=== PATIENT | male | born 1950 | race Caucasian/White ===

== ENCOUNTER 2020-04-18 01:01 | Inpatient (IN) | payer MEDICARE, OTHER ==
[2020-04-18 01:44] LABS: Hemoglobin 8.4 g/dL (14.0-18.0); Mean Corpuscular HGB CONC 35.2 g/dL (32.0-36.0); Mean Corpuscular Hemoglobin 38.4 pg (27.0-31.0); Platelet Count 216 thou/uL (130-400); RBC Distribution Width 16.3 % (11.5-14.5); Red Blood Cell (RBC) Count 2.19 mill/uL (4.70-6.10)
[2020-04-18 02:05] LABS: ALT (SGPT) 17 U/L (8-55); AST (SGOT) 24 U/L (5-34); Albumin 3.7 g/dL (3.4-4.8); Alkaline Phosphatase 74 U/L (40-110); Anion Gap 14 mmol/L (10-20); BUN (Urea Nitrogen) 24 mg/dL (8.4-25.7); Bilirubin, Total 1.2 mg/dL (0.2-1.2); Calc. Creatinine Clearance 0 mL/min (70-130); Carbon Dioxide 30 mmol/L (23-31); Chloride 102 mmol/L (98-107); Estimated GFR-MDRD 53; Globulin 2.6 g/dL (2.4-3.5); Glucose 113 mg/dL (83-110); Potassium 3.1 mmol/L (3.5-5.1); Protein, Total 6.3 g/dL (5.8-8.1); Sodium 143 mmol/L (136-145)
[2020-04-18 02:06] LABS: Elliptocytes MODERATE= 6-15 cells (100X) (0-1/hpf); Eosinophils 7 % (0-10); Lymphocytes 43 % (21-51); MDiff Complete? YES; Macrocytosis SLIGHT = 6-15 cells (100X) (0-5/hpf); Monocytes 12 % (0-10); Neutrophil 37 % (42-75)
[2020-04-18 02:07] LABS: Calcium 12.5 mg/dL (7.8-10.44)
[2020-04-18] MEDS ORDERED: Vancomycin 1 GM/200 ML BAG ONE (02:09)
[2020-04-18] MEDS ORDERED: Cefepime 2 GM VIAL ONE (02:09)
[2020-04-18] MEDS ORDERED: Potassium Chloride 20 MEQ TAB ONE (04:04)
[2020-04-18] MEDS ORDERED: Ondansetron ODT 4 MG TAB PO PRN (04:20)
[2020-04-18] MEDS ORDERED: Ondansetron PF 4 MG/2 ML Vial IVP PRN (04:20)
[2020-04-18] MEDS ORDERED: Acetaminophen 325 MG TAB PO PRN (04:20)
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
[2020-04-18] MEDS ORDERED: Potassium Chloride 20 MEQ TAB PO SCH (04:30)
[2020-04-18 05:39] VITALS: BMI 34.7
[2020-04-18] MEDS ORDERED: Furosemide 40 MG/4 ML VIAL SLOW IVP SCH ×2 (05:45→14:00)
[2020-04-18 07:44] LABS: Anisocytosis SLIGHT = 6-15 cells (100X) (0-5/hpf); Elliptocytes MODERATE= 6-15 cells (100X) (0-1/hpf); Eosinophils 5 % (0-10); Hemoglobin 8.7 g/dL (14.0-18.0); Lymphocytes 39 % (21-51); MDiff Complete? YES; Macrocytosis SLIGHT = 6-15 cells (100X) (0-5/hpf); Mean Corpuscular HGB CONC 34.2 g/dL (32.0-36.0); Mean Corpuscular Hemoglobin 37.7 pg (27.0-31.0); Monocytes 17 % (0-10); Neutrophil 38 % (42-75); Ovalocytes SLIGHT = 2-5 cells (100X) (0-1/hpf); Platelet Count 250 thou/uL (130-400); Platelet Morphology Comment Appears Adequate; Poikilocytosis SLIGHT = 6-15 cells (100X) (0-5/hpf); Polychromasia SLIGHT = 2-3 cells (100X) (0-2/hpf); RBC Distribution Width 16.5 % (11.5-14.5); Red Blood Cell (RBC) Count 2.31 mill/uL (4.70-6.10); Spherocytes SLIGHT = 1-5 cells (100X) (None Seen); White Blood Cell (WBC) Count 5.9 thou/uL (4.8-10.8)
--- NOTE | 2020-04-18 07:57 | RAD ---
EXAM: CHEST ONE VIEW HISTORY: Bilateral lower stomach pain and drainage. Shortness of breath. COMPARISON: 04/12/2016 FINDINGS: Cardiac silhouette remains enlarged. Prominence of the hilar structures, but this is likely related t o technique of the exam and patient rotation. Pulmonary vasculature is otherwise within normal limits. There are mild linear densities left lung base probably due to atelectasis. Calcified granulo ma right midlung zone is present. Degenerative change seen in the spine. No other interval change. IMPRESSION: Cardiomegaly without overt CHF.
[2020-04-18] MEDS ORDERED: FLU VACC QS2020-21(65YR UP)/PF 240 MCG/0.7 ML SYRINGE IM ONE (09:00)
[2020-04-18 10:39] LABS: SARS-CoV-2 MS2 Positive; SARS-CoV-2 N Gene Negative; SARS-CoV-2 S Gene Negative; SARS-CoV-2 by NAA Not Detected (NotDetected); SARS-CoV-2 orf1ab Negative
[2020-04-18] MEDS ORDERED: Nitroglycerin 0.4 MG TAB (25 Tab Bottle) SL PRN (12:59)
[2020-04-18] MEDS ORDERED: Polyethylene Glycol 3350 17 GM Packet PO PRN (12:59)
[2020-04-18] MEDS ORDERED: Carvedilol 3.125 MG TAB PO SCH (13:15)
[2020-04-18] MEDS ORDERED: Furosemide 20 MG/2 ML VIAL SLOW IVP SCH (14:00)
[2020-04-18 14:14] LABS: Bilirubin Negative (Negative); Blood, Urine 1+ (Negative); Clarity Turbid (Clear); Glucose, Urine (Dipstick) Normal (Negative); Ketone, Urine Negative (Negative); Leukocyte Negative Leu/uL (Negative); Nitrite Negative (Negative); Protein, Urine (Dipstick) 50 mg/dL (Neg-Trace); RBC/HPF 0-3 HPF (0-3); Specific Gravity, Urine 1.014 (1.002-1.036); Squamous Epithelial None Seen HPF (0-3); Urobilinogen Normal mg/dL (Less than 2); WBC/HPF 0-3 HPF (0-3)
[2020-04-18] MEDS: Vancomycin HCl 1.25 GM in Sodium Chloride 0.9% 250 ML 250 ML IVPB SCH (14:20)
[2020-04-18 14:24] LABS: Bacteria/HPF 1+ HPF (None Seen)
[2020-04-18 14:39] LABS: Reference Lab Name LABCORP
[2020-04-18] MEDS ORDERED: Rivaroxaban 10 MG TAB PO SCH (17:00)
[2020-04-18] MEDS: Carvedilol 3.125 MG TAB PO SCH (20:07)
[2020-04-18] MEDS: Potassium Chloride 10 MEQ TAB PO SCH (20:07)
[2020-04-19] MEDS: Vancomycin HCl 1.25 GM in Sodium Chloride 0.9% 250 ML 250 ML IVPB SCH ×2 (01:52→16:18)
[2020-04-19 06:54] LABS: Anion Gap 14 mmol/L (10-20); BUN (Urea Nitrogen) 17 mg/dL (8.4-25.7); Calc. Creatinine Clearance 100 mL/min (70-130); Carbon Dioxide 27 mmol/L (23-31); Chloride 106 mmol/L (98-107); Estimated GFR-MDRD 68; Glucose 104 mg/dL (83-110); Sodium 144 mmol/L (136-145)
[2020-04-19 07:04] LABS: Potassium 2.7 mmol/L (3.5-5.1)
--- NOTE | 2020-04-19 07:24 | PDOC.FM ---
- Subjective Subjective: Pt is doing well today. He is weeping from his extremities. He got rest through the night with Lasix 20 mg IV instead of 40 mg. He has no complaints. Denies fever, chills. - Objective Vital Signs & Weight: Vital Signs (12 hours) Temp Pulse Resp BP Pulse Ox 04/19/20 04:00 98.0 F 97 20 121/58 L 94 L 04/18/20 23:40 98.6 F 73 20 105/51 L 94 L 04/18/20 19:45 97.8 F 67 18 107/53 L 96 Weight Weight 113.035 kg I&O: 04/18/20 04/19/20 04/20/20 06:59 06:59 06:59 Intake Total 1350 Balance 1350 Result Diagrams: 04/19/20 06:19 04/19/20 06:19 Phys Exam - Physical Examination Constitutional: NAD HEENT: PERRLA, moist MMs Respiratory: no wheezing, clear to auscultation bilateral Cardiovascular: RRR, no significant murmur Gastrointestinal: soft, non-tender, positive bowel sounds 2+ pitting edema, weeping Neurological: non-focal, normal sensation Psychiatric: normal affect, A&O x 3 Dx/Plan - Plan Plan: CHF exacerbation Last echo on record EF 30-40%. Reports regular f/u with Dr. Chapman (refrigeration houseman). BNP 540. CXR showed cardiomegaly without overt CHF. Lower extremity -Admit to medical inpatient, consider tele pending clinical course -Med rec with pharmacy in the am. Patient unable to report home medications. -Lasix IV 40mg then 20 mg, monitor creatinine -Strict I&Os Concern for LLE superimposed cellulitis Chronic venous stasis disease -Continue vanc Macrocytic anemia Hgb 8.4, MCV 109 in ED -Order Folate and B12 - work up for MM Hypercalcemia 12.7 when corrected for albumin. Cause most likely PTH vs. undiagnosed malignancy. Patient currently asymptomatic aside from edema. -PTH low -MM work up pending Hypokalemia replete HTN HLD A-fib BPH -continue home meds PCP: Drake Code: DNR DVT PPX: Lovenox Dispo: admit to medical inpatient, expected LOS > 48 hours Addendum - Attending - Attending Attestation Date/Time: 04/19/20 0428 I personally evaluated the patient and discussed the management with Dr. Griffith. I agree with the History, Examination, Assessment and Plan documented above with any addition or exceptions noted below.
[2020-04-19] MEDS ORDERED: Potassium Chloride 20 MEQ TAB PO SCH ×4 (07:30→21:00)
[2020-04-19 07:49] LABS: Anisocytosis SLIGHT = 6-15 cells (100X) (0-5/hpf); Band 2 % (5-11); Elliptocytes SLIGHT = 2-5 cells (100X) (0-1/hpf); Eosinophils 4 % (0-10); Hemoglobin 7.9 g/dL (14.0-18.0); Lymphocytes 27 % (21-51); MDiff Complete? YES; Macrocytosis MODERATE=16-30 cells (100X) (0-5/hpf); Mean Corpuscular HGB CONC 33.7 g/dL (32.0-36.0); Mean Corpuscular Hemoglobin 37.3 pg (27.0-31.0); Monocytes 10 % (0-10); Neutrophil 56 % (42-75); Ovalocytes SLIGHT = 2-5 cells (100X) (0-1/hpf); Platelet Count 216 thou/uL (130-400); Platelet Morphology Comment Appears Adequate; Polychromasia SLIGHT = 2-3 cells (100X) (0-2/hpf); RBC Distribution Width 16.7 % (11.5-14.5); Red Blood Cell (RBC) Count 2.11 mill/uL (4.70-6.10); White Blood Cell (WBC) Count 4.7 thou/uL (4.8-10.8)
[2020-04-19] MEDS: Potassium Chloride 10 MEQ TAB PO SCH ×2 (08:11→21:08)
[2020-04-19] MEDS: Aspirin Chewable 81 MG TAB PO SCH (08:11)
[2020-04-19] MEDS: Finasteride 5 MG TAB PO SCH (08:12)
[2020-04-19] MEDS: Tamsulosin HCl 0.4 MG CAP PO SCH (08:12)
[2020-04-19] MEDS: Famotidine 20 MG TAB PO SCH (08:12)
[2020-04-19] MEDS: Carvedilol 3.125 MG TAB PO SCH ×2 (08:12→21:07)
[2020-04-19] MEDS: Fenofibrate Nanocrystallized 145 MG TAB PO SCH (08:12)
[2020-04-19] MEDS: Multivitamin W/ Minerals 1 TAB PO SCH (08:12)
[2020-04-19] MEDS: Furosemide 40 MG/4 ML VIAL SLOW IVP SCH (08:12)
[2020-04-19] MEDS ORDERED: Rivaroxaban 10 MG TAB PO SCH (09:00)
--- NOTE | 2020-04-19 10:31 | PDOC.FMACP ---
Advance Care Planning - Problem (1) Hypokalemia Status: Acute Code(s): E87.6 - HYPOKALEMIA (2) Palliative care by specialist Status: Acute Code(s): Z51.5 - ENCOUNTER FOR PALLIATIVE CARE (3) CHF (congestive heart failure) Status: Chronic Code(s): I50.9 - HEART FAILURE, UNSPECIFIED Qualifiers: Qualified Code(s): I50.23 - Acute on chronic systolic (congestive) heart failure (4) Cellulitis of both lower extremities Status: Resolved Code(s): L03.115 - CELLULITIS OF RIGHT LOWER LIMB; L03.116 - CELLULITIS OF LEFT LOWER LIMB - Note Participants: patient, palliative care Summary: Palliative care addressed Advanced Care Planning. The diagnosis, prognosis and goals of care were discussed. Appropriate forms and documentation to accomplish the goals of care were discussed. All questions were answered. Confirmed DNAR status, elected to complete OOHDNAR document placed on chart for Physician signature. Also completed Directive to Physician and MPOA. Origional and copies given to the patient, copies placed on the chart for medical records. Patient again confirmed decision. Please also refer to Palliative Care notes in note section. Palliative Care will sign off as Directives have been addressed, if our team can assist in the future please do not hesitate to re consult. Time Spent (mins): 15
[2020-04-19 13:46] LABS: Vancomycin, Trough 15.7 ug/mL
[2020-04-19 14:09] LABS: Anion Gap 14 mmol/L (10-20); BUN (Urea Nitrogen) 18 mg/dL (8.4-25.7); Calc. Creatinine Clearance 77 mL/min (70-130); Carbon Dioxide 28 mmol/L (23-31); Chloride 102 mmol/L (98-107); Estimated GFR-MDRD 51; Glucose 123 mg/dL (83-110); Potassium 3.1 mmol/L (3.5-5.1); Sodium 141 mmol/L (136-145)
[2020-04-19 14:13] LABS: Calcium 12.2 mg/dL (7.8-10.44)
--- NOTE | 2020-04-19 15:29 | PQF ---
CLINICAL DOCUMENTATION CLARIFICATION FORM: Dear Date:04/19/20 9891 Please exercise your independent, professional judgment in responding to the clarification form. Clinical indicators are provided on the bottom of this form for your review. Please check appropriate box(es): CONGESTIVE HEART FAILURE EXACERBATION: A. ACUITY [ ] Acute [ x ] Acute on Chronic [ ] Chronic B. TYPE: [ x ] Systolic / HFrEF [ ] Diastolic / HFpEF [ ] Combined Systolic / Diastolic [ ] Hypertensive Heart and Kidney disease [ ] Hypertensive Heart Disease [ ] Hypertensive Kidney Disease [ ] Other diagnosis [ ] Unable to determine In addition, please specify: Present on Admission (POA): [ x ] Yes [ ] No [ ] Unable to determine For continuity of documentation, please document condition throughout progress notes and discharge summary. Thank You. To be completed by CDI/Coding staff for physician review: CLINICAL INDICATORS - SIGNS / SYMPTOMS / LABS / RESULTS AND LOCATION IN EMR 04/18 BNP 540.7 CXR cardiomegaly without overt CHF Pt is a 70 year old male with a hx of CHF, presents to the ED with reports of bilateral lower extremity edema for the past 4 days ( H&P/ Gatica) 04/18 He got rest through the night with Lasix 20mg iv instead of 40mg. Plan: CHF Exacerbation- last echo on record showed EF 30-40%. (PN/Gladis) 04/19 RISKS FACTORS / RESULTS AND LOCATION IN EMR Hx of Hypertension, CHF ( H&P/ Gatica) 04/18 TREATMENTS / RESULTS AND LOCATION IN EMR LASIX IV 20MG (Gladis/PN) 04/19 CXR (04/18) Thank you! CDS Signature: Jenny Torres RN Phone #: [phone] Date: 04/19/2020 This is a permanent part of the Medical Record [facility]
[2020-04-19] MEDS: Rivaroxaban 10 MG TAB PO SCH (16:30)
[2020-04-19] MEDS: Atorvastatin Calcium 40 MG TAB PO SCH (21:07)
[2020-04-19 21:13] LABS: Albumin-Ur 11.5 % (.); Alpha 1 - Ur 3.6 % (.); Alpha 2 - Ur 4.5 % (.); Beta-Ur 8.5 % (.); Gamma-Ur 71.9 % (.); M-Spike,% 67.8 % (Not Observed); Protein, Urine 117.8 mg/dL (Not Estab.)
[2020-04-19 21:13] LABS: A/G Ratio 1.2 (0.7-1.7); Albumin 3.4 g/dL (2.9-4.4); Alpha 1 0.5 g/dL (0.0-0.4); Alpha 2 0.8 g/dL (0.4-1.0); Gamma 0.6 g/dL (0.4-1.8); Globulin, Total 2.9 g/dL (2.2-3.9); M-Spike 0.1 g/dL (Not Observed)
[2020-04-20] MEDS: Vancomycin HCl 1.25 GM in Sodium Chloride 0.9% 250 ML 250 ML IVPB SCH (01:19)
--- NOTE | 2020-04-20 06:17 | PDOC.FM ---
- Subjective Subjective: Pt is doing well today. He is wondering about discharge as he wants to be with family. He has no complaints. He believes his legs are decreasing in size. He is urinating frequently. - Objective Vital Signs & Weight: Vital Signs (12 hours) Temp Pulse Resp BP Pulse Ox 04/19/20 19:35 97.8 F 76 18 118/56 L 97 Weight Admit Weight 113.035 kg Weight 113.035 kg I&O: 04/18/20 04/19/20 04/20/20 06:59 06:59 06:59 Intake Total 1350 1695 Balance 1350 1695 Result Diagrams: 04/20/20 05:52 04/20/20 05:52 Phys Exam - Physical Examination Constitutional: NAD HEENT: PERRLA, moist MMs Respiratory: no wheezing, clear to auscultation bilateral Cardiovascular: RRR, no significant murmur Gastrointestinal: soft, positive bowel sounds Musculoskeletal: pulses present 1+ pitting edema Psychiatric: normal affect, A&O x 3 Deviation from normal: erythema in LE improving Dx/Plan - Plan Plan: HFrEF Last echo on record EF 30-40%. Reports regular f/u with Dr. Chapman (welder assistant). BNP 540. CXR showed cardiomegaly without overt CHF. Lower extremity -Lasix IV 40mg today -Strict I&Os; LE edema improving Concern for LLE superimposed cellulitis Chronic venous stasis disease -Continue vanc - switch to PO doxycycline today for a total of 5 day course Macrocytic anemia Hgb 8.4, MCV 109 in ED, B12/Folate WNL - work up for MM - pending Light Chains but electrophoresis is indicating MM Hypercalcemia 12.7 when corrected for albumin. Cause most likely PTH vs. undiagnosed malignancy. Patient currently asymptomatic aside from edema. -PTH low -MM work up pending Hypokalemia replete HTN HLD A-fib BPH -continue home meds PCP: Drake Code: DNR DVT PPX: Lovenox Dispo: admit to medical inpatient, expected LOS > 48 hours Addendum - Attending - Attending Attestation Date/Time: 04/20/20 1240 I personally evaluated the patient and discussed the management with Dr. Griffith. I agree with the History, Examination, Assessment and Plan documented above with any addition or exceptions noted below. Patient feeling well. His SPEP/UPEP has come back concerning for MM. Consulting Onc, awaiting their recommendations. Continue treatment for LE edema and cellulitis.
[2020-04-20 06:41] LABS: Band 2 % (5-11); Eosinophils 7 % (0-10); Hemoglobin 7.6 g/dL (14.0-18.0); Hypochromia SLIGHT = 6-15 cells (100X) (0-5/hpf); Lymphocytes 41 % (21-51); MDiff Complete? YES; Macrocytosis SLIGHT = 6-15 cells (100X) (0-5/hpf); Mean Corpuscular HGB CONC 34.5 g/dL (32.0-36.0); Mean Corpuscular Hemoglobin 37.6 pg (27.0-31.0); Mean Platelet Volume 8.3 fL (7.4-10.4); Monocytes 7 % (0-10); Neutrophil 43 % (42-75); Platelet Count 192 thou/uL (130-400); Platelet Morphology Comment Appears Adequate; RBC Distribution Width 16.8 % (11.5-14.5); Red Blood Cell (RBC) Count 2.03 mill/uL (4.70-6.10); White Blood Cell (WBC) Count 4.2 thou/uL (4.8-10.8)
[2020-04-20 06:44] LABS: Anion Gap 13 mmol/L (10-20); BUN (Urea Nitrogen) 17 mg/dL (8.4-25.7); Calc. Creatinine Clearance 102 mL/min (70-130); Calcium 11.9 mg/dL (7.8-10.44); Carbon Dioxide 27 mmol/L (23-31); Chloride 105 mmol/L (98-107); Estimated GFR-MDRD 69; Glucose 111 mg/dL (83-110); Potassium 3.6 mmol/L (3.5-5.1); Sodium 141 mmol/L (136-145)
[2020-04-20] MEDS: Aspirin Chewable 81 MG TAB PO SCH (08:07)
[2020-04-20] MEDS: Famotidine 20 MG TAB PO SCH (08:07)
[2020-04-20] MEDS: Potassium Chloride 10 MEQ TAB PO SCH ×2 (08:07→20:22)
[2020-04-20] MEDS: Fenofibrate Nanocrystallized 145 MG TAB PO SCH (08:07)
[2020-04-20] MEDS: Multivitamin W/ Minerals 1 TAB PO SCH (08:07)
[2020-04-20] MEDS: Finasteride 5 MG TAB PO SCH (08:07)
[2020-04-20] MEDS ORDERED: Zoledronic Acid 4 MG in Sodium Chloride 0.9% 100 ML IVPB SCH (08:45)
[2020-04-20] MEDS: Tamsulosin HCl 0.4 MG CAP PO SCH (09:31)
[2020-04-20] MEDS: Furosemide 40 MG/4 ML VIAL SLOW IVP SCH (09:31)
[2020-04-20] MEDS: Carvedilol 3.125 MG TAB PO SCH ×2 (09:31→20:22)
[2020-04-20] MEDS ORDERED: Doxycycline 100 MG CAP PO SCH ×2 (10:05→10:15)
--- NOTE | 2020-04-20 11:38 | PDOC.BPN ---
- Brief Progress Note Encounter Date: 04/20/20 Encounter Time: 11:15 Discussed M spike with Dr. Rdz today. He would like further work up for possible dx outside of multile myeloma as the serum M-spike was mildly elevated. Discussed ordering a bone marrow bx, soft tissue throat U/S (parathyroid), retic count, and iron studies. Of note, pt has not ever had colon cancer screening. I discussed this with patient and understands work up. He is willing to stay but wants to leave by Thursday. He does have family but does not want physicians to notify at this time. He seemed to be tearful at the end of conversation. Will discuss bone marrow bx and anticoagulation with radiology.
[2020-04-20 11:57] LABS: Reticulocyte Count 2.7 % (0.5-1.5)
[2020-04-20 12:11] LABS: CRP (Inflammatory) 2.84 mg/dL (= or < 0.5)
[2020-04-20] MEDS ORDERED: Furosemide 40 MG TAB PO SCH (12:30)
--- NOTE | 2020-04-20 14:10 | ULT ---
US Thyroid STANDARD History: Hypercalcemia Comparison: None. Findings: Real-time grayscale and color evaluation of the thyroid was performed. Thyroid is small. Isthmus measures 5 mm in AP dimension. Right lobe measures 3.7 x 1.6 x 1.5 cm and t he left lobe measures 2.3 x 0.6 x 1 cm. Inferior pole right lobe of thyroid is a solid wider than tall hypoechoic nodule measuring up to 6 mm without echogenic foci. This nodule TiRads 4: Moderately suspicious. Given its small size, no aspiration or follow-up is required. No other thyroid nodules appreciated. Impression: Single right lobe of the thyroid nodule does not meet criteria for aspiration or follow-u p.
[2020-04-20] MEDS ORDERED: Iopamidol-370 76% 500 ML 1 ML ONE (15:10)
--- NOTE | 2020-04-20 15:13 | CON ---
DATE OF CONSULTATION: REASON FOR CONSULTATION: Macrocytic anemia. HISTORY OF PRESENT ILLNESS: Mr. Ramon is a pleasant 70-year-old gentleman with past medical history of congestive heart failure, who presented to the emergency room with a 4-day history of lower extremity edema. He had redness and weeping. He has had this in the past and is managed usually by Dr. Chapman. He was admitted for cellulitis, started on antibiotics and Lasix. His labs in the emergency room showed a calcium of 12.5 and hemoglobin of 8.4. He had a peripheral smear, reviewed by the radiologist, which showed normal WBC and platelets. There were no dysplastic cells noted. He was treated with a dose of Zometa, with mild improvement in his calcium. His PTH was low at 9.9. He underwent a serum protein electrophoresis with an M spike of 0.1. His immunoglobulins were normal. The patient denies any bleeding, although he is on Xarelto. He has never had a colonoscopy and refuses one at this time. His B12 and folic acid were normal as well as his liver function and TSH. PAST MEDICAL HISTORY: 1. Congestive heart failure. 2. Hypertension. 3. Hyperlipidemia. 4. History of bilateral lower extremity cellulitis. 5. Chronic AFib. 6. Diabetes mellitus, 2. 7. Morbid obesity. PAST SURGICAL HISTORY: Cardioversion. ALLERGIES: NO KNOWN DRUG ALLERGIES. HOME MEDICATIONS: 1. Aspirin. 2. Atorvastatin. 3. Carvedilol. 4. Famotidine. 5. Fenofibric acid. 6. Finasteride. 7. Furosemide. 8. MiraLAX. 9. Multivitamins. 10. Potassium chloride. 11. Flomax. 12. Xarelto. FAMILY HISTORY: Noncontributory. SOCIAL HISTORY: Former smoker, quit in 1979. No alcohol or illicit drug use. REVIEW OF SYSTEMS: CONSTITUTIONAL: No fever, chills, or night sweats. EYES: No blurred or double vision. ENT: No pain, hoarseness, sore throat, or dysphagia. CV: No chest pain, palpitations, or syncope. RESPIRATORY: Positive for shortness of breath, dyspnea on exertion, and cough. No hemoptysis. GI: No nausea, vomiting, diarrhea, constipation, or abdominal pain. : No dysuria or hematuria. MUSCULOSKELETAL: No joint or back pain. SKIN: Positive for rash on his lower extremities. NEUROLOGIC: No numbness, tingling, or weakness. PHYSICAL EXAMINATION: VITAL SIGNS: Temperature is 98.1, pulse is 72, respiratory rate 18, BP is 106/54, and he is 98% on room air. GENERAL: This is an obese male, in no acute distress. HEENT: Normocephalic and atraumatic. Pupils are equal and reactive to light. NECK: Supple. CV: Regular rate and rhythm. LUNGS: Clear. ABDOMEN: Obese and nontender. Bowel sounds are positive. EXTREMITIES: He has 3+ bilateral lower extremities with Tobias wraps. NEUROLOGIC: Nonfocal. HEMATOLOGIC: He has scattered bruising on his upper extremities. PERTINENT LABORATORY DATA AND X-RAYS: Current WBCs 4.2, hemoglobin 7.6, hematocrit 22.1, MCV is 109, and platelet count 192,000. He has 43% neutrophils and 41% lymphocytes. PT is 20.9, INR is 1.8, and PTT is 48.2. Sodium 141, potassium 3.6, chloride 105, CO2 is 24, BUN is 17, creatinine 1.05, and calcium 11.9. Iron 140, TIBC is 441, ferritin 248, LDH is 341, B12 is 803, and folate is 17.9. PTH is 9.9. Serum protein electrophoresis shows an M spike of 0.1. Serum total protein is 6.3, albumin 3.7, and globulin 2.6. Bilirubin is 1.2, AST is 24, ALT is 17, and alkaline phosphatase is 74. COVID PCR negative. Chest x-ray shows cardiomegaly. ASSESSMENT: 1. Macrocytic anemia. 2. Hypercalcemia. DISCUSSION: The case has been discussed with Dr. Rdz, who has also discussed the case with Dr. Griffith. The patient has received Zometa for his high calcium. His B12, folic acid, and iron levels are normal. He has had macrocytosis for many years, but has not been anemic until recently. His white blood cells and platelets are normal. He needs a bone marrow biopsy, which has been scheduled for Thursday. I would also like to get a nuclear med bone scan, unfortunately, that cannot be done until Thursday either. There is concern for malignancy. Consider a CT of the chest, abdomen, and pelvis since all workup has been postponed until Thursday. Patient's M spike is 0.1, immunoglobulins are normal. Will check light chain assays. We will follow along with his hospital course. Thank you for the consult. Job ID: [id number] NANDA
[2020-04-20] MEDS: Rivaroxaban 10 MG TAB PO SCH (17:44)
--- NOTE | 2020-04-20 19:13 | CT ---
CT OF THE CHEST, ABDOMEN AND PELVIS WITH IV CONTRAST INDICATION: History of hypercalcemia and suspicion for malignancy COMPARISON: Thyroid ultrasound dated April 20, 2020 and a CTA of the chest dated April 10, 2016. FINDINGS: CHEST: Lungs: There is a calcified granuloma in the right lower lobe. No suspicious pulmonary nodule is demo nstrated. Pleural space: There is a small right pleural effusion Mediastinum: There is moderate cardiomegaly. There are coronary artery and thoracic aortic calcificat ions. There is a partially calcified mass, originating along the inferior pole of the left thyroid gland that extends into the substernal region suspicious for substernal goiter. However, in light of patient's history of hypercalcemia, enlarged parathyroid adenoma is not excluded. This is relatively stable in size to the 2016 CT examination and measures 4.0 x 3.6 cm. Axilla: No pathologically enlarged lymph nodes. ABDOMEN: Liver: No focal lesion. Gallbladder: Contracted Pancreas: Normal. Adrenal glands: Normal. Spleen: Calcified granuloma within the spleen Kidneys and ureters: Normal. No hydronephrosis. Vasculature: There are moderate vascular calcifications seen involving the visualized vasculature. Lymph nodes:No lymphadenopathy. Free fluid in abdomen:No free fluid is evident. PELVIS: Small and large bowel: There are scattered colonic diverticula without evidence of active diverticuli tis. Small bowel is of normal caliber. Appendix:Normal Bladder: Normal. Rectal and perirectal soft tissues:Normal. Reproductive structures: The prostate is enlarged measuring 5 cm. Free fluid in pelvis: Mild free fluid is seen within the pelvis. Lymphadenopathy pelvis: No lymphadenopathy is evident. Osseous structures: No acute osseous abnormality. No destructive osteolytic or osteoblastic lesion i s identified. There is scattered degenerative and osteoarthritic changes. Soft tissues:There is reticulation of the subcutaneous fat involving the anterior abdomen and may ref lect mild anasarca or mild panniculitis. Recommend correlation with the clinical examination. There is bilateral male gynecomastia. IMPRESSION: 1. Partially calcified, stable soft tissue mass protruding from the inferior margin of the left thyro id gland, not well seen on the recently performed thyroid ultrasound, likely related to its substernal position. 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 Recommend consideration with correlation of the patient's laboratory evaluation as well as consideration for pa rathyroid scan. 2. No overt evidence to suggest presence of malignancy within the chest, abdomen or pelvis. 3. Nonspecific prostate enlargement. 4. Moderate cardiomegaly with small right pleural effusion and minimal ascites in the pelvis. Recomme nd correlation for mild CHF. 5. Panniculitis versus mild anasarca of the anterior abdominal wall.
[2020-04-20] MEDS: Doxycycline 100 MG CAP PO SCH (20:22)
[2020-04-20] MEDS: Atorvastatin Calcium 40 MG TAB PO SCH (20:22)
--- NOTE | 2020-04-21 06:08 | PDOC.FM ---
- Subjective Subjective: Pt awake and alert, sitting on edge of bed. States his SOB, edema and LE pain have improved. Tolerating diet, voiding well. - Objective Vital Signs & Weight: Vital Signs (12 hours) Temp Pulse Resp BP Pulse Ox 04/20/20 20:20 98.3 F 99 18 116/72 97 Weight Admit Weight 113.035 kg Weight 113.035 kg I&O: 04/19/20 04/20/20 04/21/20 06:59 06:59 06:59 Intake Total 1350 1695 840 Output Total 1300 Balance 1350 1695 -460 Result Diagrams: 04/20/20 05:52 04/20/20 05:52 Phys Exam - Physical Examination Constitutional: NAD HEENT: moist MMs, sclera anicteric Neck: supple, full ROM Respiratory: no wheezing, clear to auscultation bilateral Cardiovascular: RRR 2/6 systolic murmur heard at L upper sternal border Gastrointestinal: soft, non-tender, no distention Musculoskeletal: pulses present, edema present Neurological: non-focal, moves all 4 limbs Psychiatric: normal affect, A&O x 3 Skin: no rash, cap refill <2 seconds Deviation from normal: b/l LE wrapped Dx/Plan - Plan Plan: Hypercalcemia -Ca 12.2, PTH low. etiology most likely undiagnosed malignancy. -US thyroid: small nodule inf pole of R lobe, does not meet criteria for aspiration or f/u -CT abd/pelv: stable soft tissue mass inferior margin of L thyroid gland, cannot exclude parathyroid adenoma. No evidence of malignancy in chest, abd, pelvis -Nuclear med bone scan and bone marrow bx scheduled for Thursday -pending PTHrp HFrEF -Last echo on record EF 30-40%. Reports regular f/u with Dr. Chapman (procedure rn). BNP 540. CXR showed cardiomegaly without overt CHF. -Lasix 40mg po -Strict I&Os- -460mL in past 24 hrs Concern for LLE superimposed cellulitis Chronic venous stasis disease -Abx: PO doxycycline started 04/20 for a total of 5 day course Macrocytic anemia -Hgb 8.4, MCV 109 in ED, B12/Folate WNL -pending oncology workup Hypokalemia -resolved HTN HLD A-fib BPH -continue home meds PCP: Drake Code: DNR DVT PPX: Xarelto Diet: HH Dispo: admit to medical inpatient, expected LOS > 48 hours Addendum - Attending - Attending Attestation Date/Time: 04/21/20 [id number] I personally evaluated the patient and discussed the management with Dr. Meyers. I agree with the History, Examination, Assessment and Plan documented above with any addition or exceptions noted below. Patient overall stable. Continue PO abx for his LLE cellulitis, as well as PO Lasix for edema. Continue hypercalcemia workup, Onc on board. CT did not show any evidence of malignancy but did show possible parathyroid adenoma that is stable in size. Bone marrow bx on Thursday.
[2020-04-21] MEDS: Doxycycline 100 MG CAP PO SCH ×2 (08:14→19:27)
[2020-04-21] MEDS: Carvedilol 3.125 MG TAB PO SCH ×2 (08:15→19:27)
[2020-04-21] MEDS: Potassium Chloride 10 MEQ TAB PO SCH ×3 (08:15→19:27)
[2020-04-21] MEDS: Multivitamin W/ Minerals 1 TAB PO SCH (08:15)
[2020-04-21] MEDS: Fenofibrate Nanocrystallized 145 MG TAB PO SCH (08:15)
[2020-04-21] MEDS: Tamsulosin HCl 0.4 MG CAP PO SCH (08:15)
[2020-04-21] MEDS: Finasteride 5 MG TAB PO SCH (08:15)
[2020-04-21] MEDS: Aspirin Chewable 81 MG TAB PO SCH (08:15)
[2020-04-21] MEDS: Furosemide 40 MG TAB PO SCH (08:15)
[2020-04-21] MEDS: Famotidine 20 MG TAB PO SCH (08:15)
[2020-04-21 08:18] LABS: Hemoglobin 7.8 g/dL (14.0-18.0); Mean Corpuscular HGB CONC 34.3 g/dL (32.0-36.0); Mean Corpuscular Hemoglobin 37.7 pg (27.0-31.0); Mean Platelet Volume 7.7 fL (7.4-10.4); Platelet Count 218 thou/uL (130-400); RBC Distribution Width 16.8 % (11.5-14.5); Red Blood Cell (RBC) Count 2.06 mill/uL (4.70-6.10); White Blood Cell (WBC) Count 4.7 thou/uL (4.8-10.8)
[2020-04-21 08:37] LABS: Anion Gap 13 mmol/L (10-20); BUN (Urea Nitrogen) 21 mg/dL (8.4-25.7); Calc. Creatinine Clearance 99 mL/min (70-130); Calcium 11.3 mg/dL (7.8-10.44); Carbon Dioxide 25 mmol/L (23-31); Chloride 99 mmol/L (98-107); Estimated GFR-MDRD 67; Glucose 105 mg/dL (83-110); Potassium 3.2 mmol/L (3.5-5.1); Sodium 134 mmol/L (136-145)
[2020-04-21 08:38] LABS: Anisocytosis SLIGHT = 6-15 cells (100X) (0-5/hpf); Elliptocytes SLIGHT = 2-5 cells (100X) (0-1/hpf); Eosinophils 4 % (0-10); Lymphocytes 33 % (21-51); MDiff Complete? YES; Monocytes 8 % (0-10); Neutrophil 51 % (42-75); Ovalocytes SLIGHT = 2-5 cells (100X) (0-1/hpf); Platelet Morphology Comment Appears Adequate; Polychromasia SLIGHT = 2-3 cells (100X) (0-2/hpf); Reactive Lymphocytes 2 % (0-10)
[2020-04-21] MEDS ORDERED: Potassium Chloride 40 MEQ in Sodium Chloride 0.9% 250 ML 250 ML IVPB SCH (09:30)
[2020-04-21] MEDS: Rivaroxaban 10 MG TAB PO SCH (18:08)
[2020-04-21] MEDS: Atorvastatin Calcium 40 MG TAB PO SCH (19:27)
--- NOTE | 2020-04-22 05:26 | PDOC.FM ---
- Subjective Subjective: Pt doing well this morning. He says he feels back to baseline and is looking forward to going home after his bone marrow biopsy tomorrow. Tolerating diet, voiding and ambulating well. - Objective Vital Signs & Weight: Vital Signs (12 hours) Temp Pulse Resp BP Pulse Ox 04/22/20 01:34 CDT 96 04/21/20 20:00 97.6 F 92 20 120/58 L 96 Weight Admit Weight 113.035 kg Weight 113.035 kg I&O: 04/20/20 04/21/20 04/22/20 06:59 06:59 05:59 Intake Total 1695 840 Output Total 1300 Balance 1695 -460 Result Diagrams: 04/21/20 08:06 04/21/20 08:06 Phys Exam - Physical Examination Constitutional: NAD HEENT: moist MMs, sclera anicteric Neck: supple, full ROM Respiratory: no wheezing, clear to auscultation bilateral Cardiovascular: RRR holostystolic murmur Gastrointestinal: soft, non-tender Musculoskeletal: pulses present, edema present Neurological: non-focal, moves all 4 limbs Psychiatric: normal affect, A&O x 3 Deviation from normal: b/l LE wrapped Dx/Plan - Plan Plan: Hypercalcemia -Ca 12.2, PTH low. etiology most likely undiagnosed malignancy. -US thyroid: small nodule inf pole of R lobe, does not meet criteria for aspiration or f/u -CT abd/pelv: stable soft tissue mass inferior margin of L thyroid gland, cannot exclude parathyroid adenoma. No evidence of malignancy in chest, abd, pelvis. Recommended parathyroid scan for further eval -bone marrow bx scheduled for Thursday. Will talk with radiology today about parathyroid scan -pending PTHrp HFrEF -Last echo on record EF 30-40%. Reports regular f/u with Dr. Chapman (senior electronics design engineer). BNP 540. CXR showed cardiomegaly without overt CHF. -Lasix 40mg po -Strict I&Os Concern for LLE superimposed cellulitis Chronic venous stasis disease -Abx: PO doxycycline started 04/20 for a total of 5 day course Macrocytic anemia -Hgb 8.4, MCV 109 in ED, B12/Folate WNL -pending oncology workup Hypokalemia -resolved HTN HLD A-fib BPH -continue home meds PCP: Drake Code: DNR DVT PPX: Xarelto Diet: HH Dispo: admit to medical inpatient, expected LOS > 48 hours Addendum - Attending - Attending Attestation Date/Time: 04/22/20 [id number] I personally evaluated the patient and discussed the management with Dr. Meyers. I agree with the History, Examination, Assessment and Plan documented above with any addition or exceptions noted below. Cellulitis and volume status doing well. Awaiting bone marrow bx tomorrow and likely discharge home with continued outpatient follow up.
[2020-04-22] MEDS: Furosemide 40 MG TAB PO SCH (08:31)
[2020-04-22] MEDS: Aspirin Chewable 81 MG TAB PO SCH (08:31)
[2020-04-22] MEDS: Potassium Chloride 10 MEQ TAB PO SCH ×2 (08:31→20:34)
[2020-04-22] MEDS: Fenofibrate Nanocrystallized 145 MG TAB PO SCH (08:31)
[2020-04-22] MEDS: Doxycycline 100 MG CAP PO SCH ×2 (08:32→20:34)
[2020-04-22] MEDS: Tamsulosin HCl 0.4 MG CAP PO SCH (08:32)
[2020-04-22] MEDS: Finasteride 5 MG TAB PO SCH (08:32)
[2020-04-22] MEDS: Multivitamin W/ Minerals 1 TAB PO SCH (08:32)
[2020-04-22] MEDS: Famotidine 20 MG TAB PO SCH (08:32)
[2020-04-22] MEDS: Carvedilol 3.125 MG TAB PO SCH ×2 (08:32→20:34)
[2020-04-22 09:13] LABS: Kappa Lambda Light Chain Ratio 499.25 (0.26-1.65); Kappa Light Chains 2745.9 mg/L (3.3-19.4); Lambda Light Chain 5.5 mg/L (5.7-26.3)
[2020-04-22] MEDS: Rivaroxaban 10 MG TAB PO SCH (17:23)
[2020-04-22] MEDS: Atorvastatin Calcium 40 MG TAB PO SCH (20:34)
[2020-04-23] MEDS ORDERED: Melatonin 3 MG TAB PO PRN (00:23)
--- NOTE | 2020-04-23 06:25 | PDOC.FM ---
- Subjective Subjective: Patient is doing well today. Says he is going home today 4:30 pm regardless or not if the bone marrow biopsy is complete. - Objective MAR Reviewed: Yes Vital Signs & Weight: Vital Signs (12 hours) Temp Pulse Resp BP Pulse Ox 04/22/20 19:32 98.3 F 86 20 107/57 L 96 Weight Admit Weight 113.035 kg Weight 113.035 kg I&O: 04/21/20 04/22/20 04/23/20 07:59 06:59 06:59 Intake Total 200 Output Total Balance 200 Result Diagrams: 04/23/20 09:27 04/23/20 09:27 Phys Exam - Physical Examination Constitutional: NAD HEENT: moist MMs Neck: full ROM Respiratory: no wheezing, clear to auscultation bilateral Cardiovascular: RRR, no significant murmur Gastrointestinal: soft, non-tender b/l LE wrapped with leonila bandage Neurological: moves all 4 limbs Psychiatric: normal affect, A&O x 3 Skin: normal turgor Dx/Plan - Plan Plan: Hypercalcemia -Ca 12.2, PTH low. etiology most likely undiagnosed malignancy. -US thyroid: small nodule inf pole of R lobe, does not meet criteria for aspiration or f/u -CT abd/pelv: stable soft tissue mass inferior margin of L thyroid gland, cannot exclude parathyroid adenoma. No evidence of malignancy in chest, abd, pelvis. Recommended parathyroid scan for further eval -bone marrow bx scheduled for today 04/23 -nuclear bone scan not needed before discharge as per oncology -pending PTHrp HFrEF -Last echo on record EF 30-40%. Reports regular f/u with Dr. Chapman (wafer polisher). BNP 540. CXR showed cardiomegaly without overt CHF. -Lasix 40mg po -Strict I&Os Concern for LLE superimposed cellulitis Chronic venous stasis disease -Abx: PO doxycycline started 04/20 for a total of 5 day course (last day 04/24) Macrocytic anemia -Hgb 8.4, MCV 109 in ED, B12/Folate WNL -pending oncology workup Hypokalemia -resolved HTN HLD A-fib BPH -continue home meds PCP: Drake Code: DNR DVT PPX: Xarelto Diet: Dispo: admit to medical inpatient, expected LOS > 48 hours Anticipate discharge today pending bone marrow bx. Addendum - Attending - Attending Attestation Date/Time: 04/23/20 0150 I personally evaluated the patient and discussed the management with Dr. Valdivia I agree with the History, Examination, Assessment and Plan documented above with any addition or exceptions noted below- Patient without complaints. ReAdy to go home. Afebrile VSS. A/P: 1) Hypercalcemia- improved; plan for skeletal survey as per oncology and follow-up outpatient for further evaluation. 2) Cellulitis - resolving. continue po abx. D/c home today.
[2020-04-23 07:20] VITALS: BP 111/56; TEMP 98.1
[2020-04-23] MEDS: Carvedilol 3.125 MG TAB PO SCH (09:30)
[2020-04-23 09:56] LABS: INR-International Normal Ratio 3.9; PTT 48.6 sec (22.9-36.1); Prothrombin Time 39.4 sec (12.0-14.7)
[2020-04-23 10:10] LABS: Anion Gap 13 mmol/L (10-20); BUN (Urea Nitrogen) 25 mg/dL (8.4-25.7); Calc. Creatinine Clearance 97 mL/min (70-130); Calcium 10.3 mg/dL (7.8-10.44); Carbon Dioxide 27 mmol/L (23-31); Chloride 100 mmol/L (98-107); Estimated GFR-MDRD 66; Glucose 95 mg/dL (83-110); Potassium 3.5 mmol/L (3.5-5.1); Sodium 136 mmol/L (136-145)
[2020-04-23] MEDS: Famotidine 20 MG TAB PO SCH (10:37)
[2020-04-23] MEDS: Doxycycline 100 MG CAP PO SCH (10:37)
[2020-04-23] MEDS: Furosemide 40 MG TAB PO SCH (10:38)
[2020-04-23] MEDS: Fenofibrate Nanocrystallized 145 MG TAB PO SCH (10:38)
[2020-04-23] MEDS: Tamsulosin HCl 0.4 MG CAP PO SCH (10:38)
[2020-04-23] MEDS: Potassium Chloride 10 MEQ TAB PO SCH (10:38)
[2020-04-23] MEDS: Multivitamin W/ Minerals 1 TAB PO SCH (10:38)
[2020-04-23] MEDS: Finasteride 5 MG TAB PO SCH (10:39)
[2020-04-23] MEDS: Aspirin Chewable 81 MG TAB PO SCH (11:37)
[2020-04-23 11:48] LABS: Anisocytosis SLIGHT = 6-15 cells (100X) (0-5/hpf); Elliptocytes MODERATE= 6-15 cells (100X) (0-1/hpf); Eosinophils 4 % (0-10); Hemoglobin 7.6 g/dL (14.0-18.0); Lymphocytes 32 % (21-51); MDiff Complete? YES; Macrocytosis SLIGHT = 6-15 cells (100X) (0-5/hpf); Mean Corpuscular HGB CONC 34.3 g/dL (32.0-36.0); Mean Corpuscular Hemoglobin 37.7 pg (27.0-31.0); Mean Platelet Volume 8.2 fL (7.4-10.4); Monocytes 7 % (0-10); Neutrophil 55 % (42-75); Ovalocytes SLIGHT = 2-5 cells (100X) (0-1/hpf); Platelet Count 221 thou/uL (130-400); Platelet Morphology Comment Appears Adequate; Polychromasia SLIGHT = 2-3 cells (100X) (0-2/hpf); RBC Distribution Width 16.8 % (11.5-14.5); Reactive Lymphocytes 1 % (0-10); Red Blood Cell (RBC) Count 2.01 mill/uL (4.70-6.10); White Blood Cell (WBC) Count 5.5 thou/uL (4.8-10.8)
--- NOTE | 2020-04-23 13:44 | RAD ---
EXAM: XR Bone Survey Adult STANDARD DATE: 04/23/2020 1:00 PM INDICATION: History of myeloma COMPARISON: CT the chest, abdomen and pelvis dated April 20, 2020 FINDING: No definite suspicious osteolytic lesion is seen involving the axial or appendicular skelet on. There is very minimal wedging of the T5 vertebral body, better seen on the CT the chest, abdomen and pelvis that is likely chronic. No suspicious osteolytic or osteoblastic lesion is seen in volving the skeletal structures on the CT evaluation. There is diffuse osteopenia. IMPRESSION:No suspicious osteolytic lesion identified. There is diffuse osteopenia. There is stable m ild wedge deformity of T5 which is been stable since a chest radiograph dated April 12, 2012.
[2020-04-23 17:13] LABS: Kappa/Lambda Ratio 978.03 (1.03-31.76)
[2020-04-24] MEDS ORDERED: Aspirin Chewable 81 MG TAB PO SCH (09:00)
--- NOTE | 2020-04-24 10:32 | DIS ---
DATE OF ADMISSION: 04/18/2020 DATE OF DISCHARGE: 04/23/2020 RESIDENT: Coreen Valdivia MD, PGY-1. ADMITTING ATTENDING: Dr. Coy. DISCHARGE ATTENDING: Dr. Saab. CONSULTS: Oncology, Case Management, Palliative Care, Wound Care. PROCEDURES: Bone skeletal survey, which showed no suspicious osteolytic lesions. There is diffuse osteopenia. There is stable mild wedge deformity of T5 which has been stable since the chest radiograph dated 04/12/2012. Chest x-ray showed cardiomegaly without overt CHF. Thyroid ultrasound, which showed single right lobe of the thyroid nodule, does not meet criteria for aspiration or followup. CT of the chest, abdomen and pelvis, which showed one partially calcified stable soft tissue mass protruding in the inferior margin of the left thyroid gland, not well seen on the recently performed thyroid ultrasound, likely related to its substernal position. Findings may reflect partially calcified substernal goiter, however, in light of patient's history of hypercalcemia, parathyroid adenoma cannot be entirely excluded. PRIMARY DIAGNOSIS: Hypercalcemia likely secondary to malignancy. SECONDARY DIAGNOSES: 1. Heart failure with preserved ejection fraction. 2. Concern for left lower extremity superimposed cellulitis and chronic venous stasis disease. 3. Macrocytic anemia. 4. Hypokalemia. 5. Hypertension. 6. Hyperlipidemia. 7. Atrial fibrillation. 8. Benign prostatic hyperplasia. DISCHARGE MEDICATIONS: 1. Doxycycline 100 mg p.o. b.i.d. 2. Aspirin 1 tablet p.o. daily 81 mg. 3. Famotidine 1 tablet p.o. daily. 4. Atorvastatin one tablet p.o. daily 40 mg. 5. Claritin 1 tablet p.o. daily p.r.n. 6. Furosemide 40 mg one tablet p.o. daily. 7. Finasteride 5 mg p.o. daily. 8. Fenofibric acid one tablet p.o. daily. 9. Multivitamin one tablet p.o. daily. 10. Tamsulosin one capsule p.o. daily 0.4 mg. 11. 20 mEq of potassium chloride p.o. b.i.d. 12. MiraLAX 1 packet p.o. daily p.r.n. 13. Nitrostat 1 tablet every 15 minutes as needed for chest pain. 14. Carvedilol 1 tab p.o. b.i.d. 3.125 mg. Discontinued medications; Xarelto 20 mg p.o. daily. However, the patient will need to resume this medication after following up with Oncology. HISTORY OF PRESENT ILLNESS/HOSPITAL COURSE: The patient is a 70-year-old male with a history of CHF, hypertension, hyperlipidemia, presented to the ED with reports of bilateral lower extremity edema for the last 4 days. He says that the extremities have been red and have skin weeping. He denies tenderness, warmth, pain or exacerbation of pain with movement. He says he has had similar symptoms in the past, treated by Dr. Chapman, plant care worker via an increase in his home Lasix dose. The patient denies fever, chills, headache, chest pain, shortness of breath, diaphoresis, or nausea. The patient was originally admitted for possible CHF exacerbation. However, with routine labs, it was found that the patient had hypercalcemia and macrocytic anemia, and this was further worked up. For the patient's superimposed cellulitis and chronic venous stasis, Wound Care saw the patient and wrapped his legs bilaterally and applied Aquacel every 3 days. In regard to patient's heart failure, he received Lasix and strict I's and O's were monitored and the patient remained stable and asymptomatic. For his comorbidities, he continued home medications. For his hypercalcemia, malignancy workup was initiated and Oncology followed the patient. See results of different imaging procedures above. The patient's M-spike was elevated at 67.8, total kappa light chain was 8704.47, and the total [id number] ratio was also elevated at 978, which was concerning for Multiple Myeloma. The patient's INR was elevated at 3.9, so bone marrow biopsy was not performed, instead skeletal survey was, see results above. The patient remained stable throughout his stay and he was adamant about leaving after he received his skeletal survey, did not want further inpatient workup. DISPOSITION: Stable. DISCHARGE INSTRUCTIONS: 1. Location: To home. 2. Diet: No restrictions. 3. Activity: Activity as tolerated. 4. Follow up with Dr. Rdz on 04/25/2020 at 3:00 p.m. and follow up with Dr. Juan, primary care within the week. Job ID: [id number] MTDD
[2020-04-24] MEDS ORDERED: Rivaroxaban 10 MG TAB PO SCH (17:00)
== END 2020-04-23 13:59 | disposition home or self-care (01) | DRG 602 ==
LOC: ERS 01:01 → ONC 03:11
PROVIDERS: ADMIT Student in an Organized Health Care Education/Training Program; ATTEND Student in an Organized Health Care Education/Training Program
DX: L03.116 Cellulitis of left lower limb (principal); I50.23 Acute on chronic systolic (congestive) heart failure; I48.20 Chronic atrial fibrillation, unspecified; C75.0 Malignant neoplasm of parathyroid gland; I87.8 Other specified disorders of veins; Z20.828 Contact with and (suspected) exposure to other viral communicable diseases; Z66 Do not resuscitate; Z51.5 Encounter for palliative care; E87.6 Hypokalemia; E78.5 Hyperlipidemia, unspecified; N40.0 Benign prostatic hyperplasia without lower urinary tract symptoms; I11.0 Hypertensive heart disease with heart failure; E66.01 Morbid (severe) obesity due to excess calories; E83.52 Hypercalcemia; D53.9 Nutritional anemia, unspecified; Z79.82 Long term (current) use of aspirin; Z23 Encounter for immunization; Z79.899 Other long term (current) drug therapy; Z79.01 Long term (current) use of anticoagulants; Z87.891 Personal history of nicotine dependence; Z68.34 Body mass index [BMI] 34.0-34.9, adult
CPT/HCPCS: 36415; 71045; 71260; 74177; 76536; 77075; 80048; 80053; 80202; 81001; 82232; 82607; 82728; 82746; 83540; 83550; 83605; 83615; 83735; 83880; 83883; 83970; 84145; 84165; 84166; 85025; 85046; 85060; 85610; 85730; 86140; 87040; 87070; 87077; 87186; 87205; 87635; 90471; 90662; 96365; 96367; G0008; J0692; J1940; J3370; J3480; J3489; J3490; J7050; Q9967; U0003

== ENCOUNTER 2020-07-07 18:46 | Inpatient (IN) | payer MEDICARE, OTHER ==
[2020-07-07] MEDS ORDERED: Furosemide 40 MG/4 ML VIAL ONE (19:35)
[2020-07-07 20:01] LABS: Hemoglobin 7.5 g/dL (14.0-18.0); Mean Corpuscular HGB CONC 30.8 g/dL (32.0-36.0); Mean Corpuscular Hemoglobin 36.1 pg (27.0-31.0); Mean Platelet Volume 8.9 fL (7.4-10.4); Platelet Count 173 thou/uL (130-400); RBC Distribution Width 19.3 % (11.5-14.5); Red Blood Cell (RBC) Count 2.09 mill/uL (4.70-6.10); White Blood Cell (WBC) Count 4.2 thou/uL (4.8-10.8)
--- NOTE | 2020-07-07 20:01 | RAD ---
XR Chest 1 View Portable HISTORY: Shortness of breath COMPARISON: 04/18/2020 FINDINGS: The heart is enlarged. No lobar consolidation, pneumothoraces, jae pulmonary edema or ple ural effusions are seen. IMPRESSION: Cardiomegaly
[2020-07-07 20:06] LABS: PTT 39.1 sec (22.9-36.1)
[2020-07-07 20:07] LABS: Prothrombin Time 58.6 sec (12.0-14.7)
[2020-07-07 20:10] LABS: INR-International Normal Ratio 6.5
[2020-07-07 20:17] LABS: Anisocytosis MODERATE=16-30 cells (100X) (0-5/hpf); Band 7 % (5-11); Elliptocytes SLIGHT = 2-5 cells (100X) (0-1/hpf); Eosinophils 2 % (0-10); Hypochromia SLIGHT = 6-15 cells (100X) (0-5/hpf); Lymphocytes 26 % (21-51); MDiff Complete? YES; Macrocytosis MODERATE=16-30 cells (100X) (0-5/hpf); Monocytes 17 % (0-10); Neutrophil 43 % (42-75); Nucleated RBC 1 % (0); Ovalocytes MODERATE= 6-15 cells (100X) (0-1/hpf); Platelet Morphology Comment Appears Adequate; Polychromasia MODERATE = 3-4 cells (100X) (0-2/hpf); Reactive Lymphocytes 5 % (0-10); Schistocytes SLIGHT = 2-5 cells (100X) (0-1/hpf); Target Cells SLIGHT = 2-5 cells (100X) (0-1/hpf); Tear Drops SLIGHT = 2-5 cells (100X) (0-1/hpf)
[2020-07-07 20:46] LABS: Bilirubin Negative (Negative); Blood, Urine Trace (Negative); Clarity Clear (Clear); Glucose, Urine (Dipstick) Normal (Negative); Ketone, Urine Trace mg/dL (Negative); Leukocyte Negative Leu/uL (Negative); Nitrite Negative (Negative); Protein, Urine (Dipstick) 100 mg/dL (Neg-Trace); Specific Gravity, Urine 1.016 (1.002-1.036); Squamous Epithelial 0-3 HPF (0-3); Urobilinogen Normal mg/dL (Less than 2); WBC/HPF 0-3 HPF (0-3)
[2020-07-07 20:47] LABS: Bacteria/HPF Rare-Few HPF (None Seen); RBC/HPF 0-3 HPF (0-3)
[2020-07-07 20:53] LABS: CKMB 0.9 ng/mL (0-6.6)
[2020-07-07 21:42] LABS: ALT (SGPT) 29 U/L (8-55); AST (SGOT) 87 U/L (5-34); Alkaline Phosphatase 83 U/L (40-110); Anion Gap 27 mmol/L (10-20); BUN (Urea Nitrogen) 31 mg/dL (8.4-25.7); Bilirubin, Total 0.6 mg/dL (0.2-1.2); Calc. Creatinine Clearance 0 mL/min (70-130); Calcium 8.8 mg/dL (7.8-10.44); Carbon Dioxide 37 mmol/L (23-31); Chloride 86 mmol/L (98-107); Globulin 2.5 g/dL (2.4-3.5); Glucose 131 mg/dL (83-110); Protein, Total 5.5 g/dL (5.8-8.1); Sodium 147 mmol/L (136-145)
[2020-07-07 21:48] LABS: Potassium 2.6 mmol/L (3.5-5.1)
[2020-07-07 23:01] LABS: Lactic Acid 1.6 mmol/L (0.5-2.2)
--- NOTE | 2020-07-07 23:47 | PDOC.FPRHP ---
- History of Present Illness Chief Complaint: SOB, LE edema History of Present Illness: This is a 70M with a PMH of CHF, chronic venous insufficiency, afib who was brought to the ED by his qdqzjyyp-cq-[id number] for having 3 days of progressively worsening shortness of breath along with b/l LE edema. He skipped 3-5 days of his fluid pills because "honestly, no good reason," and has felt more swollen since then. He was found to have a BNP of nearly 2500 on admission with SpO2 in the mid-80s, such that he was requiring 3L NC; he is on RA at baseline. He denies pain in his chest. He has been coughing which he states occurs with his CHF. He denies any fevers. No recent travel. Frzimfvt-zs-ihz said that the skin changes on his lower extremities are chronic although he has newly-developed blisters on his L LE. The pt reports he hasn't eaten much in 3 days, endorses headache, and flashes in his vision - "twilight spots". He also reports about 4 episodes of vomiting and diarrhea last week. He was found to have a Cr of 2.5 on admission with a baseline of ~1.00. He has multiple electrolyte abnormalities, most notably a K of 2.6. He was given 80mEq KCl PO in the ED. He was found to have an INR of 6.5, although the reason for this is unknown. He was found to have an indeterminate trop of 0.364, higher than on previous admissions. EKG showed rate-controlled afib. ED Course: Lasix 80mg IV, KCl 80mEq PO, dobutamine 2.5 mcg/kg/min - Allergies/Adverse Reactions Allergies Allergy/AdvReac Type Severity Reaction Status Date / Time No Known Allergies Allergy Verified 07/08/20 04:08 - Home Medications Medication Instructions Recorded Confirmed Type Aspirin Chewable [Aspirin Chewable 81 mg PO DAILY 04/18/20 07/08/20 History Tablet] Atorvastatin Calcium 20 mg PO DAILY 04/18/20 07/08/20 History Carvedilol 3.125 mg PO BID 04/18/20 07/08/20 History Famotidine 20 mg PO DAILY 04/18/20 07/08/20 History Fenofibric Acid (Choline) 135 mg PO DAILY 04/18/20 07/08/20 History [Fenofibric Acid] Finasteride 5 mg PO DAILY 04/18/20 07/08/20 History Furosemide 40 mg PO DAILY 04/18/20 07/08/20 History Loratadine [Claritin] 10 mg PO DAILY PRN 04/18/20 07/08/20 History Multivitamin [Multivitamins] 1 tablet PO DAILY 04/18/20 07/08/20 History Nitroglycerin [Nitrostat] 1 tablet BUC Q15MIN PRN 04/18/20 07/08/20 History Polyethylene Glycol 3350 [Miralax] 1 packet PO DAILY PRN 04/18/20 07/08/20 History Potassium Chloride 10 meq PO BID 04/18/20 07/08/20 History Tamsulosin HCl 0.4 mg PO DAILY 04/18/20 07/08/20 History Alirocumab [Praluent Pen] 75 mg SC Q14D 07/08/20 07/08/20 History Rivaroxaban [Xarelto] 20 mg PO DAILY 07/08/20 07/08/20 History - History PMHx: HFrEF, HLD, HTN, afib, BPH, chronic venous insufficiency PSHx: None FHx: Non-contributory Social: Lives with zqkyllif-hr-gpf and son. Endorses distant tobacco use. Denies alcohol, drug use. - Review of Systems ROS unobtainable: due to mental status General: denies: fever/chills, weight/appetite/sleep changes, night sweats, fatigue Eyes: reports: vision changes ENT: denies: nasal congestion, rhinorrhea Respiratory: reports: cough, shortness of breath, exercise intolerance. denies: congestion Cardiovascular: reports: chest pain, edema, paroxysmal nocturnal dyspnea, orthopnea. denies: palpitation Gastrointestinal: reports: nausea, vomiting, diarrhea. denies: constipation, abdominal pain, GI bleeding Genitourinary: denies: dysuria Skin: denies: rashes, lesions, jaundice Musculoskeletal: reports: swelling. denies: pain, tenderness, stiffness Neurological: reports: weakness. denies: syncope, seizure - Vital signs BP: 101/43, MAP: 62, Pulse: 66, Resp: 23, Pain: 0, O2 sat: 100 on (3L Oxygen) - Physical Exam Constitutional: NAD, well developed -Constitutional: awake, alert, oriented to name and place, unable to state correct date (thinks it's 2010) HEENT: normocephalic and atraumatic, EOMI, grossly normal vision, grossly normal hearing Neck: supple, FROM, trachea midline Chest: no-tender to palpation, no lesions Heart: normal S1/S2, no murmurs/rubs/gallops, pulses present (Weak radial, dp b/l), no edema -Heart: Rate-controlled afib Lungs: CTAB, no respiratory distress, good air movement, no rales/rhonchi, no wheezing, no retractions -Lungs: Belly breathing Abdomen: soft, non-tender, bowel sounds present -Abdomen: Small umbilical hernia Musculoskeletal: normal structure, normal tone, ROM grossly normal Neurological: no focal deficit -Skin: Chronic skin changes on shins of b/l LE. Blisters on L LE, covered in ED. 1+ pitting edema, ttp of b/l ankles and feet. Non-pitting edema of b/l hands. Heme/Lymphatic: no unusual bruising or bleeding FMR H&P: Results - Labs Result Diagrams: 07/08/20 03:45 07/08/20 11:59 Lab results: WBC 4.2 thou/uL (4.8-10.8) L 07/07/20 19:23 Hgb 7.5 g/dL (14.0-18.0) L 07/07/20 19:23 Hct 24.4 % (42.0-52.0) L 07/07/20 19:23 MCV 117.0 fL (78.0-98.0) H 07/07/20 19:23 Plt Count 173 thou/uL (130-400) 07/07/20 19:23 Band Neuts % (Manual) 7 % (5-11) 07/07/20 19:23 Sodium 147 mmol/L (136-145) H 07/07/20 19:23 Potassium 2.6 mmol/L (3.5-5.1) L* 07/07/20 19:23 Chloride 86 mmol/L (98-107) L 07/07/20 19:23 Carbon Dioxide 37 mmol/L (23-31) H 07/07/20 19:23 BUN 31 mg/dL (8.4-25.7) H 07/07/20 19:23 Creatinine 2.54 mg/dL (0.7-1.3) H 07/07/20 19:23 Glucose 131 mg/dL (83-110) H 07/07/20 19:23 Lactic Acid 1.6 mmol/L (0.5-2.2) 07/07/20 22:35 Calcium 8.8 mg/dL (7.8-10.44) 07/07/20 19:23 Total Bilirubin 0.6 mg/dL (0.2-1.2) 07/07/20 19:23 AST 87 U/L (5-34) H 07/07/20 19:23 ALT 29 U/L (8-55) 07/07/20 19:23 Alkaline Phosphatase 83 U/L (40-110) 07/07/20 19:23 CK-MB (CK-2) 0.9 ng/mL (0-6.6) 07/07/20 19:23 B-Natriuretic Peptide 2458.1 pg/mL (0-100) H 07/07/20 19:23 Serum Total Protein 5.5 g/dL (5.8-8.1) L 07/07/20 19:23 Albumin 3.0 g/dL (3.4-4.8) L 07/07/20 19:23 Urine Ketones Trace mg/dL (Negative) A 07/07/20 20:15 Urine Blood Trace (Negative) A 07/07/20 20:15 Urine Nitrite Negative (Negative) 07/07/20 20:15 Ur Leukocyte Esterase Negative Ricky/uL (Negative) 07/07/20 20:15 Urine RBC 0-3 HPF (0-3) 07/07/20 20:15 Urine WBC 0-3 HPF (0-3) 07/07/20 20:15 Ur Squamous Epith Cells 0-3 HPF (0-3) 07/07/20 20:15 Urine Bacteria Rare-Few HPF (None Seen) 07/07/20 20:15 - Radiology Interpretation Chest x-ray Status: report reviewed by me (cardiomegaly) FMR H&P: A/P - Plan This is a 70M who presented to the ED for worsening SOB and LE edema and found to be in a CHF exacerbation. CHF exacerbation - HFrEF: echo in 2016 showed EF 30-40% with mitral/aortic/tricuspid valve regurg and LA dilatation - BNP ~2500 on admission - Pt fluid-overloaded on exam - Sanchez with strict I&O, daily weight, 1500mL fluid restriction - IV lasix - Resume home meds - Repeat echo ordered. Consider cards consult pending results Hypokalemia - K 2.6. Mg nml - s/p 80mEq PO KCl - On tele - am CMP to monitor. Continue repletion as needed Indeterminate trop - Trop 0.364, higher than on previous admissions - Suspect NSTEMI type 2 2/2 CHF - Trop trend - On tele KAYLEY vs KAYLEY on CKD - Cr 2.54, baseline ~1.10 - Suspect 2/2 CHF exac - Adjust med dosage as appropriate and avoid nephrotoxic meds - Monitor with am CMP Hypotension - Hx of HTN but soft pressures since arrival - Hold home antihypertensives - Monitor vitals - Dobutamine gtt. Suspect this will be short-term. If need continues, consider placement of central line, although need to take his coagulopathy into account Coagulopathy - INR 6.5. Cause unknown - SCDs for DVT ppx - Hold home anticoagulation once med rec'd Chronic venous insufficiency - Chronic skin changes. New blisters - Wound care consulted - Elevate legs. Recommend stockings outpt AFib - Hx of AFib - Rate-controlled in ED - On tele - Continue home meds once med rec'd Macrocytic anemia - Hb 7.5, Hct 24, MCV 117. Similar to previous admissions - B12, folate nml in Oct - Monitor with am CBC. Transfuse if Hb <7 Open Anion Gap - AG 24 - Suspect CHF as the cause. - Monitor with am BMP as CHF is managed Chronic conditions HTN: see above HLD: continue home meds once med rec'd BPH: continue home meds one med rec'd Dispo: inpt IMCU. eLOS >48hrs IVF: N/A Diet: HH-LS, fluid restriction 1500mL GI ppx: none DVT ppx: SCDs Code: DNAR PCP: Drake LOPEZ H&P: Upper Level - Plan Date/Time: 07/07/20 [id number] IGudelia MD, have evaluated this patient and agree with findings/plan as outlined by public relations intern resident. Pertinent changes/additions are listed here. This is a 70yo M that reports that over the last 3 days he has had progressively worsening SOB associated with LE swelling. He denies any chest pain. He does have a hx of HF. Reports dry cough. Denies any fever, chills, myalgias. No recent travel. Reports skipping his lasix pill for the last 5 days. PE:1+ pitting edema in b/l LE to level of knees, SOB - unable to speak multiple sentences at a time, belly breathing, irregularly irregular, crackles at b/l lung bases. LE swelling. Mild redness in LE, no warmth or weeping noted. See public relations intern note for full details. Plan: Will admit patient to [facility] for acute hypoxic resp failure 2/2 CHF exacerbation (HFrEF). BNP 2485, elevated from previous. S/p lasix in the ER. Will give another dose and re-evaluate. Fluid restrict. Strict I/Os. Echo pending. Last echo showing EF of 30-40%. Follows with Dr. Chapman outpatient. Continue with NC and ween off as tolerated. Low normal BPs- MAP running around 60. Will start dobutamine in peripheral line with goal to ween off in next 24hours. Hypokalemia - will give 80mEq PO. Will replace as needed. Coagulopathy - elevated INR, PT, PTT. On eliquis - will hold. Anemic - Hgb 7.5 - stable from previous. Getting worked up for MM. Was supposed to follow up with oncology outpatient. Elevated Trop, likley NSTEMI. Trop 0.364 - likely due to CHF. KAYLEY - BUN//2.54, elevated from baseline. Chronic venous insufficiency - will consult wound care. Elevate LE when possible. Recommend compression stockings outpatient. Will monitor. Continue home meds for chronic conditions. Dispo: admit to [facility], inpt Code: Full Diet: HH, fluid restrict PCP: Drake Case discussed with Dr. Bui Addendum - Attending - Attending Attestation Date/Time: 07/07/20 [id number] I personally evaluated the patient and discussed the management with Dr. Renetta Maldonado. I agree with the History, Examination, Assessment and Plan documented above with any addition or exceptions noted below. The patient presents with shortness of breath and increased edema. He stopped his medication for "no good reason." Pt with chf exacerbation and cardiogenic shock. Will admit to the [facility] (on stroke floor because of hospital census). Start dobutamine, give lasix. Trend creatinine for kayley. Replace electrolytes.
[2020-07-08] MEDS ORDERED: Ondansetron PF 4 MG/2 ML Vial IVP PRN (00:55)
[2020-07-08] MEDS ORDERED: Ondansetron ODT 4 MG TAB PO PRN (00:55)
[2020-07-08] MEDS ORDERED: Acetaminophen 650 MG Suppository PR PRN (00:55)
[2020-07-08 01:19] LABS: Magnesium 1.7 mg/dL (1.6-2.6); Phosphorus 3.3 mg/dL (2.3-4.7)
[2020-07-08] MEDS ORDERED: DOBUTamine 500 mg/250 ml 250 ML IVPB SCH (01:30)
[2020-07-08] MEDS ORDERED: Potassium Chloride 20 MEQ TAB ONE (01:31)
[2020-07-08] MEDS ORDERED: DOBUTamine 500 mg/250 ml 250 ML ONE (01:31)
[2020-07-08] MEDS ORDERED: Furosemide 40 MG TAB ONE (01:31)
[2020-07-08] MEDS ORDERED: Furosemide 40 MG/4 ML VIAL ONE (01:32)
[2020-07-08] MEDS ORDERED: DOBUTamine 500 mg/250 ml 500 MG in Premix Bag 1 BAG IVPB SCH (01:45)
[2020-07-08 04:24] LABS: ALT (SGPT) 27 U/L (8-55); AST (SGOT) 73 U/L (5-34); Albumin 2.9 g/dL (3.4-4.8); Alkaline Phosphatase 79 U/L (40-110); BUN (Urea Nitrogen) 32 mg/dL (8.4-25.7); Bilirubin, Total 0.6 mg/dL (0.2-1.2); Calc. Creatinine Clearance 45 mL/min (70-130); Calcium 8.6 mg/dL (7.8-10.44); Globulin 2.2 g/dL (2.4-3.5); Glucose 111 mg/dL (83-110); Protein, Total 5.1 g/dL (5.8-8.1)
[2020-07-08 04:34] LABS: Anion Gap 24 mmol/L (10-20); Carbon Dioxide 40 mmol/L (23-31); Chloride 86 mmol/L (98-107); Sodium 147 mmol/L (136-145)
[2020-07-08 04:36] LABS: Potassium 2.6 mmol/L (3.5-5.1)
[2020-07-08 04:44] LABS: CKMB 0.9 ng/mL (0-6.6)
[2020-07-08 05:11] LABS: Anisocytosis SLIGHT = 6-15 cells (100X) (0-5/hpf); Band 1 % (5-11); Elliptocytes SLIGHT = 2-5 cells (100X) (0-1/hpf); Eosinophils 3 % (0-10); Hemoglobin 7.6 g/dL (14.0-18.0); Lymphocytes 32 % (21-51); MDiff Complete? YES; Macrocytosis MODERATE=16-30 cells (100X) (0-5/hpf); Mean Corpuscular HGB CONC 31.9 g/dL (32.0-36.0); Mean Corpuscular Hemoglobin 36.8 pg (27.0-31.0); Mean Platelet Volume 8.7 fL (7.4-10.4); Monocytes 12 % (0-10); Neutrophil 52 % (42-75); Platelet Count 169 thou/uL (130-400); Red Blood Cell (RBC) Count 2.07 mill/uL (4.70-6.10); White Blood Cell (WBC) Count 4.5 thou/uL (4.8-10.8)
[2020-07-08] MEDS: Potassium Chloride 20 MEQ in Premix Bag 1 BAG IVPB SCH ×2 (05:21→08:50)
[2020-07-08] MEDS: Potassium Chloride 20 MEQ TAB PO SCH ×2 (05:22→07:34)
[2020-07-08] MEDS ORDERED: Potassium Chloride 40 MEQ in Sodium Chloride 0.9% 250 ML 250 ML IVPB SCH (08:30)
[2020-07-08 09:20] LABS: SARS-CoV-2 PCR by NAA Not Detected (NotDetected)
[2020-07-08] MEDS ORDERED: Magnesium 2 GM/50 ML 2 GM in Premix Bag 1 BAG IVPB SCH (10:15)
[2020-07-08] MEDS ORDERED: Polyethylene Glycol 3350 17 GM Packet PO PRN (10:16)
[2020-07-08] MEDS ORDERED: Loratadine 10 MG TAB PO PRN (10:16)
--- NOTE | 2020-07-08 10:25 | PDOC.FM ---
- Subjective Subjective: Pt states "not feeling well" though unable to provide details, no acute pain. no new problems overnight. - Objective Vital Signs & Weight: Vital Signs (12 hours) Temp Pulse Resp BP Pulse Ox 07/08/20 08:30 100 07/08/20 08:06 72 20 105/57 L 100 07/08/20 02:50 97.6 F 66 20 94/49 L 99 07/08/20 02:43 99 Weight Weight 115.984 kg I&O: 07/07/20 07/08/20 07/09/20 06:59 06:59 06:59 Output Total 525 Balance -525 Result Diagrams: 07/08/20 03:45 07/08/20 11:59 Phys Exam - Physical Examination mild-moderate distress HEENT: moist MMs, sclera anicteric Neck: no nodes, supple Respiratory: no wheezing bilat crackles in lung bases Cardiovascular: RRR 3/6 diastolic murmur prominent over P valve Gastrointestinal: soft, non-tender Musculoskeletal: pulses present, edema present Neurological: non-focal, moves all 4 limbs Skin: no rash, normal turgor Dx/Plan - Plan Plan: CHF exacerbation A- Stable but still overloaded. HFrEF: echo in 2016 showed EF 30-40% with mitral /aortic/tricuspid valve regurg and LA dilatation. BNP ~2500 on admission. Concern for medication non complaince generally. P- Sanchez with strict I&O, daily weight, 1500mL fluid restriction - IV lasix 80mg bid - hold home coreg as unable to tell if he had been taking this at home, will confirm he is not on ACEi/ARB once mental status improves. Consider adding if BP improves. - Repeat echo ordered. Consider cards consult pending results Cardiogenic shock A- improving. BPs normal now on 2.5 of dobutamin gtt. He has hx of HTN but soft pressures since arrival P- wean Dobutamine gtt as tolerated. Suspect this will be short-term. If need continues, consider placement of central line, although need to take his coagulopathy into account Coagulopathy A- INR 6.5. Cause unknown. At last admission INR was 3.9 and home xarelto was held on admission and discharge. He had partial malignancy workup at that admission including negative bone scan. Bone biopsy not performed 2/2 coagulopathy. He had plans for f/u with Dr. Rdz however unknown if he followed up P- consult heme/onc - SCDs for DVT ppx - Hold home xarelto Hypokalemia A- K 2.6. Mg 1.7. s/p 40mEq PO KCl P- On tele - another 40meq K and 2g Mg - repeat BMP at 1300 NSTEMI type 2 - Trop 0.364 -> .25, higher than on previous admissions. Suspect NSTEMI type 2 2/2 CHF KAYLEY vs KAYLEY on CKD A- Likely cardiorenal syndrome. Cr 2.54 -> 2.4, baseline ~1.10 P- Monitor with am CMP and adjust meds as necessary Chronic venous insufficiency - Chronic skin changes. New blisters - Wound care consulted - Elevate legs. Recommend stockings outpt AFib - Hx of AFib - Rate-controlled in ED - On tele - Continue home coreg once BP improves and CHF exacerbation improved. Macrocytic anemia - Hb 7.5, Hct 24, MCV 117. Similar to previous admissions - B12, folate nml in Oct - Monitor with am CBC. Transfuse if Hb <7 Chronic conditions HTN: see above HLD: continue home meds BPH: continue home meds Code: DNAR PCP: Drake Addendum - Attending - Attending Attestation Date/Time: 07/08/20 4626 I personally evaluated the patient and discussed the management with Dr. Emanuel. I agree with the History, Examination, Assessment and Plan documented above with any addition or exceptions noted below. The patient did not offer much history this morning. He is an IMCU admit on the stroke floor. He is on a dobutamine drip to help support his blood pressure in order to get adequate diuresis. Echo ordered and is pending. Will trend renal function. Pt is still edematous with lower extremities weeping.
[2020-07-08 12:39] LABS: BUN (Urea Nitrogen) 32 mg/dL (8.4-25.7); Calc. Creatinine Clearance 45 mL/min (70-130); Calcium 8.4 mg/dL (7.8-10.44); Glucose 91 mg/dL (83-110); Magnesium 1.8 mg/dL (1.6-2.6)
[2020-07-08 12:48] LABS: Anion Gap 22 mmol/L (10-20); Carbon Dioxide 39 mmol/L (23-31); Chloride 89 mmol/L (98-107); Potassium 3.1 mmol/L (3.5-5.1); Sodium 147 mmol/L (136-145)
[2020-07-08] MEDS: Furosemide 40 MG/4 ML VIAL SLOW IVP SCH (13:53)
[2020-07-08] MEDS: Acetaminophen 325 MG TAB PO PRN (21:28)
[2020-07-08] MEDS: Potassium Chloride 10 MEQ TAB PO SCH (21:28)
[2020-07-09 05:07] LABS: #Eosinphils 0.3 thou/uL (0.0-0.7); #Lymphocytes 1.4 thou/uL (1.20-3.40); #Monocytes 0.7 thou/uL (0.11-0.59); #Neutrophils 2.6 thou/uL (1.40-6.50); %Basophils 0.5 % (0.0-1.0); %Eosinophils 5.6 % (0.0-10.0); %Lymphocytes 28.2 % (21.0-51.0); %Monocytes 14.1 % (0.0-10.0); %Neutrophils 51.5 % (42.0-75.0); Hemoglobin 6.9 g/dL (14.0-18.0); Mean Corpuscular Hemoglobin 36.3 pg (27.0-31.0); Mean Platelet Volume 9.3 fL (7.4-10.4); Platelet Count 164 thou/uL (130-400); RBC Distribution Width 19.2 % (11.5-14.5); Red Blood Cell (RBC) Count 1.91 mill/uL (4.70-6.10); White Blood Cell (WBC) Count 5.1 thou/uL (4.8-10.8)
[2020-07-09 05:22] LABS: BUN (Urea Nitrogen) 32 mg/dL (8.4-25.7); Calc. Creatinine Clearance 42 mL/min (70-130); Calcium 8.5 mg/dL (7.8-10.44); Glucose 127 mg/dL (83-110)
[2020-07-09 05:31] LABS: Anion Gap 20 mmol/L (10-20); Carbon Dioxide 40 mmol/L (23-31); Chloride 90 mmol/L (98-107); Sodium 147 mmol/L (136-145)
[2020-07-09] MEDS: Furosemide 40 MG/4 ML VIAL SLOW IVP SCH ×2 (06:22→13:34)
[2020-07-09] MEDS: Potassium Chloride 20 MEQ in Premix Bag 1 BAG IVPB SCH ×2 (06:27→08:29)
--- NOTE | 2020-07-09 07:24 | PDOC.FM ---
- Subjective Subjective: Heme consulted, awaiting report with recs Cardiology consulted this AM due to worsening renal function with diuresis and abnormal echo result of severely dilated LA and EF 40-50%. hbg 6.9, order placed to transfuse 1 unit pRBC's. had difficulty swallowing breakfast this morning, will get speech on for diet recs. coagulopathic so not on therapeutic heparin. - Objective MAR Reviewed: Yes Vital Signs & Weight: Vital Signs (12 hours) Temp Pulse Resp BP Pulse Ox 07/09/20 03:12 97.7 F 65 22 H 100/53 L 97 07/08/20 23:08 97.4 F L 64 20 97/57 L 100 07/08/20 21:28 98 07/08/20 19:56 100/62 07/08/20 19:36 97.5 F L 73 20 84/58 L 98 Weight Weight 119.249 kg I&O: 07/08/20 07/09/20 07/10/20 06:59 06:59 06:59 Intake Total 1300 Output Total 525 1675 Balance -525 -375 Result Diagrams: 07/09/20 08:56 07/09/20 04:16 Phys Exam - Physical Examination coughing after taking a bite of eggs HEENT: moist MMs, sclera anicteric Neck: supple bibasilar crackles distant heart sounds Gastrointestinal: soft, positive bowel sounds distended but soft. Obese Musculoskeletal: pulses present, edema present (peripheral pitting edema ) Neurological: non-focal, moves all 4 limbs Psychiatric: A&O x 3 Skin: cap refill <2 seconds Dx/Plan (1) HFrEF (heart failure with reduced ejection fraction) Code(s): I50.20 - UNSPECIFIED SYSTOLIC (CONGESTIVE) HEART FAILURE Status: Acute (2) Symptomatic anemia Code(s): D64.9 - ANEMIA, UNSPECIFIED Status: Acute (3) Coagulopathy Status: Acute (4) Hypokalemia Code(s): E87.6 - HYPOKALEMIA Status: Acute (5) Afib Code(s): I48.91 - UNSPECIFIED ATRIAL FIBRILLATION Status: Chronic Qualifiers: Atrial fibrillation type: paroxysmal Qualified Code(s): I48.0 - Paroxysmal atrial fibrillation - Plan Plan: CHF exacerbation A- Stable but still overloaded. HFrEF: echo in 2016 showed EF 30-40% with mitral/aortic/tricuspid valve regurg and LA dilatation. BNP ~2500 on admission. Concern for medication non compliance generally. P- Sanchez with strict I&O, daily weight, 1500mL fluid restriction - IV lasix 80mg bid, changed to 40 mg BID due to worsening renal function. - hold home coreg as unable to tell if he had been taking this at home, will confirm he is not on ACEi/ARB once mental status improves. Consider adding if BP improves. - Repeat echo ordered. EF 40-50%, severely dilated LA, increased pulm artery pressures ~50 mmHG. - Cardiology consulted due to abnormal echo and worsening renal function with diuresis. Cardiorenal syndrome A- improving. BPs normal while on 2.5 of dobutamin gtt. He has hx of HTN but soft pressures since arrival. dobutamine ggt d/c's on 07/08 afternoon. P- Suspect this will be short-term. - Cr 2.59 GFR 24, worsened with diuresis. I/O: 1300/1675 mL - Cardiology consulted for recs. Macrocytic anemia, with symptomatic anemia - Hb 7.5, Hct 24, MCV 117. Similar to previous admissions - B12, folate nml in Oct - Monitor with am CBC. Transfuse if Hb <8 due to cardiac hx. - heme/onc consulted, awaiting report. Coagulopathy A- INR 6.5. Cause unknown. At last admission INR was 3.9 and home xarelto was held on admission and discharge. He had partial malignancy workup at that admission including negative bone scan. Bone biopsy not performed 2/2 coagul opathy. He had plans for f/u with Dr. Rdz however unknown if he followed up P- consult heme/onc, appreciate recommendations. Will need bone marrow biopsy once INR improves. - SCDs for DVT ppx - Hold home xarelto Hypokalemia A- K 2.6. Mg 1.7. replace and trand. K on 07/09 3.0. P- On tele - added 40 mEq BID - repeat BMP at 1300 NSTEMI type 2 - Trop 0.364 -> .25, higher than on previous admissions. Suspect NSTEMI type 2 2/2 CHF - pt coagulopathic with INR of 6.5, holding heparin at this time. KAYLEY vs KAYLEY on CKD A- Likely cardiorenal syndrome. Cr 2.54 -> 2.4-> 2.59, baseline ~1.10 P- Monitor with am CMP and adjust meds as necessary - lasix decreased to 40 BID, cardiology consulted for recs on diuresis in settin g of KAYLEY. Chronic venous insufficiency - Chronic skin changes. New blisters - Wound care consulted - Elevate legs. Recommend stockings outpt AFib - Hx of AFib, aware and present on echo this admission. - Rate-controlled in ED - On tele - Continue home coreg once BP improves and CHF exacerbation improved. Chronic conditions HTN: see above HLD: continue home meds BPH: continue home meds Code: DNAR PCP: Drake Addendum - Attending - Attending Attestation Date/Time: 07/09/20 4425 I personally evaluated the patient and discussed the management with Dr. Rodriguez I agree with the History, Examination, Assessment and Plan documented above with any addition or exceptions noted below - Patient not feeling well; has been having abdominal cramping. Afebrile VSS. A/P: 1) Acute hypoxic resp failure secondary to HFrEF - cardiology consulted; awaiting recommendations; off dobutamine. 2) KAYLEY- normal Cr in April; will consult nephrology. Will check renal USG. 3) Coagulopathy - uncertain etiology; INR now improved; continue to monitor. 4) Anemia- transfused 1u pRBCs today due to cardiac history.
[2020-07-09] MEDS: Potassium Chloride 20 MEQ TAB PO SCH ×3 (08:37→17:08)
[2020-07-09] MEDS: Aspirin Chewable 81 MG TAB PO SCH (08:37)
[2020-07-09] MEDS: Famotidine 20 MG TAB PO SCH (08:38)
[2020-07-09] MEDS: Atorvastatin Calcium 40 MG TAB PO SCH (08:38)
[2020-07-09] MEDS: Tamsulosin HCl 0.4 MG CAP PO SCH (08:38)
[2020-07-09] MEDS: Fenofibrate Nanocrystallized 145 MG TAB PO SCH (08:38)
[2020-07-09] MEDS: Finasteride 5 MG TAB PO SCH (08:38)
[2020-07-09] MEDS: Potassium Chloride 10 MEQ TAB PO SCH ×2 (08:38→22:55)
[2020-07-09 09:16] LABS: Hemoglobin 7.7 g/dL (14.0-18.0); INR-International Normal Ratio 2.5; Mean Corpuscular HGB CONC 31.7 g/dL (32.0-36.0); Mean Corpuscular Hemoglobin 37.4 pg (27.0-31.0); Mean Platelet Volume 9.2 fL (7.4-10.4); PTT 31.2 sec (22.9-36.1); Platelet Count 167 thou/uL (130-400); Prothrombin Time 27.1 sec (12.0-14.7); RBC Distribution Width 19.2 % (11.5-14.5); Red Blood Cell (RBC) Count 2.05 mill/uL (4.70-6.10); White Blood Cell (WBC) Count 6.8 thou/uL (4.8-10.8)
[2020-07-09 09:29] LABS: Troponin I 0.167 ng/mL (< 0.028)
[2020-07-09 09:46] LABS: Anisocytosis SLIGHT = 6-15 cells (100X) (0-5/hpf); Band 10 % (5-11); Eosinophils 10 % (0-10); Hypochromia SLIGHT = 6-15 cells (100X) (0-5/hpf); Lymphocytes 30 % (21-51); MDiff Complete? YES; Monocytes 15 % (0-10); Neutrophil 35 % (42-75); Platelet Morphology Comment Appears Adequate; Polychromasia SLIGHT = 2-3 cells (100X) (0-2/hpf)
[2020-07-09 13:13] LABS: HBCM Index 0.05 S/CO (0-0.79); HBSAg Index 0.32 S/CO (0-0.99); Hep A IgM AB Non-Reactive (NonReactive); Hep B Surf Ag Non-Reactive S/CO (NonReactive); Hep C IgG Ab Non-Reactive (NonReactive); Hep C Index 0.04 S/CO (0-0.79); Hepatitis B Core IgM Abs Non-Reactive (NonReactive)
--- NOTE | 2020-07-09 15:57 | CON ---
DATE OF CONSULTATION: REASON FOR CONSULT: Anemia and elevated INR. HISTORY OF PRESENT ILLNESS: Mr. Ramon is a 70-year-old gentleman, who presented to the emergency room with worsening shortness of breath and bilateral lower extremity edema. He has a history of chronic venous insufficiency and CHF. His BNP was 2500 on admission and he was admitted for diuresis. His INR was 6.5. The patient was last admitted here at the end of March of 2020. He was seen at that time by us for macrocytic anemia. He had hypercalcemia with calcium level of 12.5. He was treated with Zometa and returned to normal and remained normal on this admission. He underwent a serum protein electrophoresis. His M-spike was 0.1. His immunoglobulins were normal. Further workup showed an abnormal beta-2 microglobulin, as well as an abnormally high free light chain ratio. Skeletal survey was negative. The patient was notified of abnormal results and called by our office three times for followup. He hung up each time and said he was not coming. This admission, the patient was seen at bedside with one of his daughters present. He is pleasant and appropriate. He states he has had a 45- pound weight loss, including fluid loss. He has had a poor appetite and shortness of breath. No new bone pain. No bleeding issues. He denies taking any anticoagulation at home. PAST MEDICAL HISTORY: 1. Congestive heart failure. 2. Hypertension. 3. Hyperlipidemia. 4. History of bilateral lower extremity cellulitis. 5. Chronic atrial fibrillation. 6. Diabetes mellitus 2. 7. Morbid obesity. PAST SURGICAL HISTORY: Cardioversion. ALLERGIES: NO KNOWN DRUG ALLERGIES. HOME MEDICATIONS: 1. Aspirin. 2. Atorvastatin. 3. Carvedilol. 4. Claritin. 5. Famotidine. 6. Fenofibric acid. 7. Finasteride. 8. Lasix. 9. MiraLAX. 10. Multivitamins. 11. Nitrostat. 12. Potassium chloride. 13. Insulin Pen. 14. Flomax. 15. Xarelto. FAMILY HISTORY: Noncontributory. SOCIAL HISTORY: No alcohol, tobacco, or illicit drug use. Lives with family at home. REVIEW OF SYSTEMS: A 12-point review of systems is negative except for noted in HPI. PHYSICAL EXAMINATION: VITAL SIGNS: Temperature 97.6, pulse is 75, respiratory rate 24, BP is 83/56. He is 99% on room air. GENERAL: This is an obese male, in no acute distress. HEENT: Normocephalic, atraumatic. Pupils are equal and reactive to light. NECK: Supple. CV: Regular rate and rhythm. LUNGS: Diminished throughout. ABDOMEN: Obese. Bowel sounds are positive. EXTREMITIES: He has 2+ bilateral lower extremity edema. : He has a Sanchez catheter in place with clear yellow urine. NEUROLOGIC: Intact. PERTINENT LABORATORY DATA AND X-RAYS: Current WBCs are 6.8, hemoglobin 7.7, hematocrit 24.1, MCV is 118, platelet counts are 167,000, 35% neutrophils, 10% bands, 30% lymphocytes. Sodium 147, potassium 3, chloride 90, CO2 is 40, BUN is 32, creatinine 2.59, calcium 8.5, bilirubin 0.6, AST 73, ALT is 27, alkaline phosphatase is 79, serum total protein is 5.1, albumin 2.9, globulin 2.2. COVID PCR negative. ASSESSMENT: 1. Free light chain multiple myeloma. 2. Elevated INR at admission. DISCUSSION: The patient was seen at bedside with daughter present. Results from his prior admission were discussed in detail with him. We would like to do a bone marrow biopsy to confirm diagnosis of myeloma. We need to recollect a 24-hour urine for protein electrophoresis and light chain assay. We briefly discussed treatment for myeloma and he agrees to follow up in the office. His INR was 6.5 on arrival. He denies any Xarelto. It is improved today to 2.5 without any treatment. It is unclear if there is an inhibitor involved. However, it has improved and he has had no bleeding issues. Continue to monitor that. Case has been discussed in detail with Dr. Rdz. Thank you for the consult. Job ID: [id number] MTDD
--- NOTE | 2020-07-09 16:04 | ULT ---
Renal sonogram HISTORY: Acute renal failure. FINDINGS: Exam limited due to body habitus. Right kidney measures up to 9.2 cm in length and left kid nancy 12.0 cm. No hydronephrosis evident. Cortex incompletely visualized. Sanchez catheter decompresses the urinary bladder. IMPRESSION : No evidence of urinary tract obstruction.
--- NOTE | 2020-07-09 19:29 | CON ---
DATE OF CONSULTATION: 07/09/2020 INDICATION FOR CONSULTATION: A 70-year-old patient who has been followed by Dr. Chapman for many years, who was admitted with shortness of breath for the last several days, has chronic atrial fibrillation. He was admitted and was found to have significant anemia. He has been seen by the oncologist. He is thought to have possible myeloma. Workup has been in process, but he has not followed up. He also apparently did not follow up in the office, this was requested either for his cardiology evaluation. He does have significant coronary artery disease, which was diagnosed by cardiac catheterization back in 2010. He had a left main stenosis of 20%. At that time, left anterior descending over 60% and 40% and also 50% stenosis distally and ramus with 50% stenosis, right coronary artery was 50%, the mid section and PDA were 50% stenosis, ejection fraction was approximately 25% to 30% at that time and was then increased up to 40% to 45%. He had a recent echocardiogram since being here in the hospital just yesterday I believe, ejection fraction was 45% to 50% with significant left atrial dilatation and also [id number] tricuspid valve regurgitation, [id number] pulmonary valve regurgitation, and increased pulmonary artery systolic pressure about 50 mmHg compatible with pulmonary hypertension as well as mild mitral valve regurgitation. He has been transfused. He has also been seen by the oncologist service. He denies any chest pain, but mainly complains of shortness of breath. His cardiac enzymes showed a troponin I, which was still slightly elevated at 0.364 on admission, has decreased down to 0.167. His BNP was significantly elevated at 2458. He also had hypokalemia at that time at 2.6. He has been given potassium. He has also been placed on dobutamine to help with his cardiac output. His urinary output has not been very significant. He has been also given IV Lasix. He has significant lower extremity edema. His EKG shows atrial fibrillation with occasional episodes of AIVR, but he also said that he has had a significant weight loss at about 45 pounds. He has also had a decrease in his appetite. I believe he is being worked up by the Oncology Service. He has also apparently failed to follow up in the office with the Oncology Service. Also when he arrived, his INR was 6.5 and since he has normalized. He also was found to have hypercalcemia with a calcium level of 12.5. He was retreated with medications and then since he returned to normal. This was actually I believe on his previous admission, but at this time he still has a calcium level that is within normal limits. PAST MEDICAL HISTORY: Significant for coronary artery disease as well as lower extremity edema, cellulitis, history of anemia, chronic atrial fibrillation, type 2 diabetes, morbid obesity. He has history of hypertension, hyperlipidemia. He has had cardioversions for atrial fibrillation in the past. ALLERGIES: NONE. MEDICATIONS: Prior to admission included: 1. Atorvastatin. 2. Carvedilol. 3. Aspirin. 4. Famotidine. 5. Claritin. 7. Fenofibric acid. 8. Finasteride. 9. Lasix. 10. MiraLAX. 11. Multivitamins. 12. Nitroglycerin p.r.n. as needed. 13. Potassium. He is on insulin pen, Flomax, and Xarelto, but I am uncertain whether or not he is still taking this medication. Certainly, this is being put on hold at this time. FAMILY HISTORY: Noncontributory. SOCIAL HISTORY: He lives at home. He has family members who are supportive. He has no alcohol or tobacco abuse. REVIEW OF SYSTEMS: Twelve point review of systems, he mainly complains of shortness of breath and fatigue and lower extremity edema. PHYSICAL EXAMINATION: GENERAL: Reveals a certainly ill-appearing gentleman. He is in no acute distress at this time. VITAL SIGNS: Blood pressure was 104/56, earlier today was 83/56. He is afebrile. Actually, temperature is on the low side at 97.2, pulse is 68, respiratory rate was 24, and O2 saturation was 95% on 3 L. HEENT: Shows the head to be normocephalic and atraumatic. Carotid pulses are present. I do not appreciate any significant bruits. CHEST: He has decreased breath sounds throughout, but he is failing to take a deep inspiratory breath. He somewhat appears overall fatigued as well as deconditioned. CARDIOVASCULAR: Reveals an irregular rhythm. He also has what appears to be a diastolic murmur over the aortic area. He has a systolic murmur at the apex compatible with his mitral valve regurgitation. This may be some radiation to the aortic area, which may sound as if is diastolic murmur. ABDOMEN: Shows obesity. Positive bowel sounds. EXTREMITIES: Showed 2+ to 3+ lower extremity edema to above the knees. He has evidence of cellulitis in the lower extremities. I cannot palpate pedal pulses nor could I palpate popliteal pulses. He has a Sanchez catheter in place. SKIN: Warm and dry at this time. I cannot elicit any gross focal motor deficits as the patient appears to be overall very weak. LABORATORY DATA: Shows on the 16, potassium was 2.6 is now 3.0, his sodium was 147, BUN was 32 with a creatinine of 2.59. On admission, the creatinine was 2.54. Blood sugar is 127. Troponin I as noted above. His BNP was 2458. His INR was 6.5 is now down to 2.5, PT was 58.6, now decreased down to 27.1. His hemoglobin was 7.5 on admission, then decreased down to 6.9, it is back up to 7.7. He has been given transfusion. I do not think the hemoglobin has been rechecked since the transfusion, which was being administered earlier today. Platelet count was 167,000, WBC was 6.8. DIAGNOSTIC STUDIES: EKG shows atrial fibrillation with a well-controlled ventricular response at this time. He also has underlying bundle branch block, which appears to be incomplete right bundle branch block. IMPRESSION: 1. Congestive heart failure in this elderly gentleman, which may be due to diastolic dysfunction as well as elevated right-sided pressures with pulmonary hypertension as well as ongoing atrial fibrillation. He is being diuresed at this time with Lasix and also been placed on dobutamine. Hopefully, he will continue to diurese. 2. Anemia of uncertain etiology. This is being also evaluated by the Hematology and Oncology Service. 3. Chronic atrial fibrillation. At this time, he is not a candidate for anticoagulation due to the anemia and uncertain source of bleeding. He has been given aspirin 81 mg a day. I would agree with that unless there has been any other source of bleeding identified. 4. Hypercholesterolemia. We will continue on his statin medications. 5. Coronary artery disease. He has not had any chest pain. We will leave this up to the discretion of Dr. Chapman when he visits with the patient tomorrow. At this time, he is not a candidate for cardiac catheterization or stress testing and overall, I would agree with the present management of the patient should he developed any further tachycardia as long as the blood pressure tolerates, we can try low-dose calcium blockers in the form of diltiazem. Certainly, while he is on dobutamine, we would not be advisable to start him on any type of beta blockers. Job ID: [id number] MTDD
[2020-07-10 05:00] LABS: PTT 42.5 sec (22.9-36.1); Prothrombin Time 23.2 sec (12.0-14.7)
[2020-07-10] MEDS: Furosemide 40 MG/4 ML VIAL SLOW IVP SCH ×2 (05:47→13:46)
--- NOTE | 2020-07-10 07:33 | PDOC.FM ---
- Subjective Subjective: Pt states he is still SOB today 2125 mL urine output last 24 hours seen by oncology who is panning bone marrow biopsy. Pt states he is unsure if he would like to pursue treatment at this time and would like to discuss palliative options of care. Placed palliative consult this morning required 3 L NC O2 overnight with O2 sat 93-95% h/h and bmp pending this AM tele monitoring overnight: 3 beats of AIVR with nml vitals and asymptomatic - Objective MAR Reviewed: Yes Vital Signs & Weight: Vital Signs (12 hours) Temp Pulse Resp BP Pulse Ox 07/10/20 06:34 97.7 F 76 18 109/70 96 07/10/20 04:00 97.9 F 76 18 102/65 96 07/09/20 23:52 97.3 F L 73 18 106/60 93 L 07/09/20 20:00 97.5 F L 75 16 106/59 L 96 Weight Admit Weight 115.984 kg Weight 119.249 kg Most Recent Monitor Data Heart Rate from ECG 72 NIBP 102/66 Respiration from ECG 30 I&O: 07/09/20 07/10/20 07/11/20 06:59 06:59 06:59 Intake Total 1300 1279 Output Total 1675 2125 Balance -375 -846 Result Diagrams: 07/11/20 12:08 07/11/20 12:08 Phys Exam - Physical Examination Constitutional: NAD fatigued HEENT: moist MMs, sclera anicteric Neck: supple, full ROM Respiratory: no wheezing, no rales, no rhonchi, clear to auscultation bilateral Cardiovascular: RRR sys and diastolic murmur Gastrointestinal: soft, positive bowel sounds Musculoskeletal: pulses present, edema present (peripheral pitting ) Neurological: moves all 4 limbs Psychiatric: A&O x 3 Dx/Plan (1) HFrEF (heart failure with reduced ejection fraction) Code(s): I50.20 - UNSPECIFIED SYSTOLIC (CONGESTIVE) HEART FAILURE Status: Acute (2) Symptomatic anemia Code(s): D64.9 - ANEMIA, UNSPECIFIED Status: Acute (3) Coagulopathy Status: Acute (4) Hypokalemia Code(s): E87.6 - HYPOKALEMIA Status: Acute (5) Afib Code(s): I48.91 - UNSPECIFIED ATRIAL FIBRILLATION Status: Chronic Qualifiers: Atrial fibrillation type: paroxysmal Qualified Code(s): I48.0 - Paroxysmal atrial fibrillation - Plan Plan: CHF exacerbation A- Stable but still overloaded. HFrEF: echo in 2016 showed EF 30-40% with mitral/aortic/tricuspid valve regurg and LA dilatation. BNP ~2500 on admission. Concern for medication non compliance generally. P- Sanchez with strict I&O, daily weight, 1500mL fluid restriction - IV lasix 80mg bid, changed to 40 mg BID due to worsening renal function. - hold home coreg as unable to tell if he had been taking this at home, will confirm he is not on ACEi/ARB once mental status improves. Consider adding if BP improves. - Repeat echo ordered. EF 40-50%, severely dilated LA, increased pulm artery pressures ~50 mmHG. - Cardiology consulted due to abnormal echo and worsening renal function with diuresis. continue lasix and dobutamine ggt per Dr. Botello. Pt was off of dobutamine ggt on 07/08. Dr. Chapman to see pt today and will clarify if dobtamine ggt is desired by him. Cardiorenal syndrome A- improving. BPs normal while on 2.5 of dobutamin gtt. He has hx of HTN but sof t pressures since arrival. dobutamine ggt d/c'd on 07/08 afternoon. P- Cardiology and Nephrology consulted for recs. - Cr 2.59 GFR 24, worsened with diuresis. good urine output last 24 hrs - daily BMP ordered and pending this am Free Light Chain Multiple Myeloma - Oncology consulted, appreciate recs - possible bone marrow biopsy, 24 hr urine electrophoresis and light chain assay pending - palliative care consulted due to patients states wishes on 07/10 of being uns ure if he wanted to pursue treatment options. Macrocytic anemia, with symptomatic anemia - Hb 7.5, Hct 24, MCV 117. Similar to previous admissions - B12, folate nml in Oct - Monitor with am CBC. Transfuse if Hb <8 due to cardiac hx. - heme/onc consulted - repeat hemagram pending this AM Coagulopathy, improving A- INR 6.5. Cause unknown. At last admission INR was 3.9 and home xarelto was held on admission and discharge. He had partial malignancy workup at that admission including negative bone scan. Bone biopsy not performed 2/2 coagulopa thy. He had plans for f/u with Dr. Rdz however unknown if he followed up P- consult heme/onc, appreciate recommendations. Will need bone marrow biopsy once INR improves. However pt not sure he wants to pursue this, palliative care consult placed 07/10. - SCDs for DVT ppx - discontinue home xarelto - INR 07/10 2.0 Hypokalemia A- K 2.6. Mg 1.7. replace and trand. K on 07/09 3.0. P- On tele - added 40 mEq BID - repeat BMP pending NSTEMI type 2 - Trop 0.364 -> 0.25, higher than on previous admissions. Suspect NSTEMI type 2 2/2 CHF - pt coagulopathic with INR of 6.5, holding heparin at this time. - Trop down trended 0.167 on 07/09 KAYLEY A- Likely cardiorenal syndrome. Cr 2.54 -> 2.4-> 2.59, baseline ~1.10 P- Monitor with am CMP and adjust meds as necessary - lasix decreased to 40 BID IV, cardiology and nephrology consulted for recs on diuresis in setting of KAYLEY. - Renal US ordered: no obstruction or abnormalities. - Nephrology consulted, appreciate recommendations Chronic venous insufficiency - Chronic skin changes. New blisters - Wound care consulted - Elevate legs. Recommend stockings outpt AFib - Hx of AFib, aware and present on echo this admission. - Rate-controlled in ED - On tele - Continue home coreg once BP improves and CHF exacerbation improved. - not candidate for anticoagulation other than ASA 81 mg daily due to coagulopathy. Chronic conditions HTN: see above HLD: continue home meds BPH: continue home meds Code: DNAR PCP: [facility] dispo: inpatient, >48 hr anticipated Palliative care consulted today, as pt not sure he wants to take measures to treat the MM. Addendum - Attending - Attending Attestation Date/Time: 07/11/20 [id number] I personally evaluated the patient and discussed the management with Dr. Rodriguez on 07/10/2020 I agree with the History, Examination, Assessment and Plan documented above with any addition or exceptions noted below - Patient without complaints. Just returned from bone marrow biopsy. Afebrile VSS. A/P: 1) Acute hypoxic resp failure secondary to combined sys/diastolic heart failure and anemia - continue diurectics; wean O2 as tolerated, 2) Anemia- improved with transfusion; continue to monitor. 3) Possible myeloma- bone marrow biopsy done; results pending.
[2020-07-10] MEDS: Aspirin Chewable 81 MG TAB PO SCH (07:43)
--- NOTE | 2020-07-10 08:11 | CON ---
DATE OF CONSULTATION: 07/09/2020 CONSULTING PHYSICIAN: Kaycee Rodriguez DO, from [facility]. REASON FOR CONSULTATION: Acute kidney injury. REASON FOR ADMISSION: Shortness of breath and edema. HISTORY OF PRESENT ILLNESS: A 70-year-old male with history of CHF, chronic venous insufficiency, atrial fibrillation, who came to the hospital with worsening shortness of breath, swelling, and edema. The patient is apparently diagnosed with multiple myeloma. Did not have any followup, but started having swelling breathing trouble and came to the hospital. No fever or chills reported. He is very lethargic. PAST MEDICAL HISTORY: Positive for congestive heart failure, hyperlipidemia, hypertension, atrial fibrillation, BPH, and chronic venous insufficiency. PAST SURGICAL HISTORY: None. HOME MEDICATIONS: Reviewed. ALLERGIES: NO KNOWN DRUG ALLERGIES. SOCIAL HISTORY: Distant tobacco use. No alcohol or illicit drug abuse. FAMILY HISTORY: No history of kidney disease. REVIEW OF SYSTEMS: CONSTITUTIONAL: Negative for weight loss or gain, ability to conduct usual activities. SKIN: Negative for rash, itching. EYES: Negative for double vision, pain. ENT/MOUTH: Negative for nose bleeding, neck stiffness, pain, tenderness. CARDIOVASCULAR: Negative for palpitations, dyspnea on exertion, orthopnea. RESPIRATORY: Negative for shortness of breath, wheezing, cough, hemoptysis, fever or night sweats. GASTROINTESTINAL: Negative for poor appetite, abdominal pain, heartburn, nausea, vomiting, constipation, or diarrhea. GENITOURINARY: Negative for urgency, frequency, dysuria, nocturia. MUSCULOSKELETAL: Negative for pain, swelling. NEUROLOGIC/PSYCHIATRIC: Negative for anxiety, depression. ALLERGY/IMMUNOLOGIC: Negative for skin rash, bleeding tendency. PHYSICAL EXAMINATION: GENERAL: This is an obese male, in no apparent distress. VITAL SIGNS: Temperature 97.5, pulse 72, respiratory rate 20, and blood pressure 114/71. HEENT: Atraumatic, normocephalic. Oral mucosa moist. NECK: Supple. CV: S1 and S2. Regular rate and rhythm. RESPIRATORY: Clear. GASTROINTESTINAL: Abdomen is soft. MUSCULOSKELETAL: 2+ edema. DERMATOLOGIC: No skin rash. NEUROLOGIC: Lethargic, somnolent. LABORATORY DATA: Hemoglobin is 7.7. Potassium 3.0, BUN is 32, creatinine is 2.5, calcium 8.5, and albumin 2.9. ASSESSMENT AND PLAN: 1. Acute kidney injury on chronic kidney disease. His baseline creatinine is around 1.1, and now is 2.5, most likely from worsening myeloma check urine protein to creatinine ratio. 2. Hypernatremia secondary to diuresis. 3. Hypokalemia. 4. Alkalosis. 5. Hypoalbuminemia. 6. Anemia. 7. History of heart failure. Prognosis poor. Follow with Hem/Onc. Continue diuretics for now, but we will follow. We will check urine studies. Thank you for the consult. Job ID: [id number]
[2020-07-10] MEDS: Atorvastatin Calcium 40 MG TAB PO SCH (08:18)
[2020-07-10] MEDS: Finasteride 5 MG TAB PO SCH (08:19)
[2020-07-10] MEDS: Famotidine 20 MG TAB PO SCH (08:19)
[2020-07-10] MEDS: Fenofibrate Nanocrystallized 145 MG TAB PO SCH (08:22)
[2020-07-10] MEDS: Tamsulosin HCl 0.4 MG CAP PO SCH (08:22)
[2020-07-10] MEDS: Potassium Chloride 20 MEQ TAB PO SCH (08:25)
[2020-07-10] MEDS ORDERED: Fentanyl 100 MCG/2 ML VIAL ONE (09:50)
[2020-07-10] MEDS ORDERED: Sodium Bicarbonate 2.5 MEQ/5 ML VIAL ONE (09:50)
--- NOTE | 2020-07-10 11:27 | CT ---
Bone marrow aspiration biopsy CT-guided HISTORY: Myeloma. FINDINGS: After explaining the procedure and answering all questions, limited CT imaging of the pelvi s was performed with patient prone. Sterile technique, buffered local anesthesia, CT guidance, and a posterior approach were used to care fully advance an 11-gauge bone biopsy needle to the posterior cortex of the left iliac body. Position confirmed with CT. Needle carefully engaged into the bone cortex and blood aspirate obtained . Bone marrow core obtained and submitted to pathology for evaluation. Patient tolerated the procedure well and was returned in unchanged condition. IMPRESSION : Technically successful CT-guided bone marrow aspiration biopsy.
[2020-07-10 11:38] LABS: Hemoglobin 8.6 g/dL (14.0-18.0); Platelet Count 141 thou/uL (130-400)
[2020-07-10 12:04] LABS: BUN (Urea Nitrogen) 31 mg/dL (8.4-25.7); Calc. Creatinine Clearance 55 mL/min (70-130); Calcium 9.3 mg/dL (7.8-10.44); Glucose 92 mg/dL (83-110)
[2020-07-10 12:14] LABS: Anion Gap 18 mmol/L (10-20); Carbon Dioxide 37 mmol/L (23-31); Chloride 93 mmol/L (98-107); Sodium 144 mmol/L (136-145)
--- NOTE | 2020-07-10 15:08 | PDOC.MOPN ---
Interval History: seen at bedside, no complaints. Tolerated BMB - Vital Signs Vital Signs: Vital Signs (12 hours) Temp Pulse Resp BP BP Pulse Ox 07/10/20 14:49 65 107/69 99 07/10/20 11:19 97.6 F 77 24 H 108/70 94 L 07/10/20 10:00 97.8 F 70 20 107/65 95 07/10/20 08:07 98 07/10/20 07:53 97.5 F L 66 18 141/69 H 98 07/10/20 06:34 97.7 F 76 18 109/70 96 07/10/20 04:00 97.9 F 76 18 102/65 96 Weight Admit Weight 255 lb 11.2 oz Weight 262 lb 14.4 oz Most Recent Monitor Data Heart Rate from ECG 72 NIBP 102/66 Respiration from ECG 30 - Physical Exam General: Alert HEENT: Atraumatic, PERRLA, EOMI, Mucous membr. moist/pink Lungs: Other Cardiovascular: Regular rate Abdomen: Normal bowel sounds Neurological: Normal speech - Labs Result Diagrams: 07/10/20 11:29 07/10/20 11:29 Lab results: Laboratory Results - last 24 hr 07/10/20 11:29: Sodium 144, Potassium 4.0, Chloride 93 L, Carbon Dioxide 37 H, Anion Gap 18, BUN 31 H, Creatinine 2.03 H, Estimated GFR (MDRD) 32, Glucose 92, Calcium 9.3 07/10/20 11:29: Hgb 8.6 L, Hct 27.6 L, Plt Count 141 07/10/20 04:34: PT 23.2 H, INR 2.0, APTT 42.5 H 07/09/20 16:50: U Random Total Protein 87 H 07/09/20 16:50: Urine Creatinine 30.89 L 07/09/20 11:58: Hepatitis A IgM Ab Non-Reactive, Hep Bs Antigen Non-Reactive, Hep B Core IgM Ab Non-Reactive, Hepatitis C Antibody Non-Reactive Status: lab reviewed by me A/P - Problem (1) Myeloma Current Visit: Yes Code(s): C90.00 - MULTIPLE MYELOMA NOT HAVING ACHIEVED REMISSION Status: Acute (2) Coagulopathy Current Visit: Yes Status: Acute - Plan Plan: 1. BMB completed, await final results 2. may start treatment while inpatient
--- NOTE | 2020-07-10 17:54 | PRG ---
DATE OF SERVICE: 07/10/2020 SUBJECTIVE: Patient was seen and examined at bedside and overnight events noted. Patient denies any shortness of breath or chest pain or palpitation. No history of nausea or vomiting or diarrhea or fever or chills or cramps. OBJECTIVE: GENERAL: This is a well-built male, in no apparent distress. VITAL SIGNS: Temperature 98.0. Heart rate 73. Respiratory rate 18. Blood pressure 131/76. HEENT: Atraumatic, normocephalic. Oral mucosa is moist. NECK: Supple. CARDIOVASCULAR: S1, S2 heard. Rate and rhythm regular. RESPIRATORY: Clear to auscultation. GASTROINTESTINAL: Abdomen is soft. MUSCULOSKELETAL: No tenderness. No edema. DERMATOLOGIC: No skin rash. NEUROLOGIC: Alert and awake and oriented x3. No focal neurologic deficits. Moving all the extremities. PSYCHIATRIC: Mood and affect normal. LABORATORY DATA: Potassium 4.0, BUN is 31, and creatinine is 2.03. ASSESSMENT AND PLAN: 1. Acute kidney injury on chronic kidney disease, stage 3, most likely secondary to myeloma and he is diuretics very well, which is expected. 2. Multiple myeloma. The patient is apparently not interested interested in talking with Palliative Team. Continue discussion with the family. 3. Hypernatremia. 4. Hypokalemia. 5. Hypoalbuminemia. 6. Anemia. 7. Heart failure. 8. Proteinuria secondary to myeloma. Continue discussion with the Palliative Team and continue diuretics and limit fluid intake. We will follow. Job ID: [id number]
[2020-07-11] MEDS: Furosemide 40 MG/4 ML VIAL SLOW IVP SCH ×2 (05:29→15:04)
--- NOTE | 2020-07-11 07:19 | PDOC.FM ---
- Subjective Subjective: Pt is very weak this morning and somnolent He states he does not desire treatment but wants to know more prognosis form oncology team to be seen by palliative care this morning. on 3 L NC overnight SOB this morning, with O2 sat 92% - Objective MAR Reviewed: Yes Vital Signs & Weight: Vital Signs (12 hours) Temp Pulse Resp BP BP Pulse Ox 07/11/20 03:41 97.7 F 72 20 105/64 99 07/11/20 02:02 98.6 F 68 22 H 120/77 100 07/11/20 00:00 97.3 F L 73 20 110/74 100 07/10/20 20:00 98.1 F 68 18 103/65 92 L Weight Admit Weight 115.984 kg Weight 119.249 kg Most Recent Monitor Data Heart Rate from ECG 72 NIBP 102/66 Respiration from ECG 30 I&O: 07/10/20 07/11/20 07/12/20 06:59 06:59 06:59 Intake Total 1279 1574 Output Total 3826 8990 Balance -846 -1826 Result Diagrams: 07/10/20 11:29 07/10/20 11:29 Phys Exam - Physical Examination somnolent HEENT: moist MMs, sclera anicteric Neck: supple Respiratory: no rales, no rhonchi diminished breath sounds, worse on L than R belly breathing Cardiovascular: RRR sys and diastolic murmur present Gastrointestinal: no distention Musculoskeletal: pulses present, edema present (pitting, but improved from previous exams. ) Neurological: moves all 4 limbs Psychiatric: normal affect, A&O x 3 Skin: normal turgor, cap refill <2 seconds Dx/Plan (1) HFrEF (heart failure with reduced ejection fraction) Code(s): I50.20 - UNSPECIFIED SYSTOLIC (CONGESTIVE) HEART FAILURE Status: Acute (2) Symptomatic anemia Code(s): D64.9 - ANEMIA, UNSPECIFIED Status: Acute (3) Coagulopathy Status: Acute (4) Hypokalemia Code(s): E87.6 - HYPOKALEMIA Status: Acute (5) Afib Code(s): I48.91 - UNSPECIFIED ATRIAL FIBRILLATION Status: Chronic Qualifiers: Atrial fibrillation type: paroxysmal Qualified Code(s): I48.0 - Paroxysmal atrial fibrillation - Plan Plan: CHF exacerbation A- Stable but still overloaded. HFrEF: echo in 2016 showed EF 30-40% with mitral/aortic/tricuspid valve regurg and LA dilatation. BNP ~2500 on admission. Concern for medication non compliance generally. P- Sanchez with strict I&O, daily weight, 1500mL fluid restriction - IV lasix 80mg bid, changed to 40 mg BID due to worsening renal function. - hold home coreg as unable to tell if he had been taking this at home, will confirm he is not on ACEi/ARB once mental status improves. Consider adding if BP improves. - Repeat echo ordered. EF 40-50%, severely dilated LA, increased pulm artery pressures ~50 mmHG. - Cardiology consulted due to abnormal echo and worsening renal function with diuresis. continue lasix and dobutamine ggt per Dr. Botello. Pt was off of dobutamine ggt on 07/08. Dr. Chapman to see pt today and will clarify if dobtamine ggt is desired by him. Awaiting recommendations. Cardiorenal syndrome, improving A- improving. BPs normal while on 2.5 of dobutamin gtt. He has hx of HTN but soft pressures since arrival. dobutamine ggt d/c'd on 07/08 afternoon. P- Cardiology and Nephrology consulted for recs. - Cr 2.59 GFR 24, worsened with diuresis. good urine output last 24 hrs and Cr 2.03 - daily BMP ordered and pending this am Free Light Chain Multiple Myeloma - Oncology consulted, appreciate recs - Bone marrow biopsy 07/10, 24 hr urine electrophoresis and light chain assay pending - palliative care consulted due to patients states wishes on 07/10 of being unsure if he wanted to pursue treatment options. Macrocytic anemia, with symptomatic anemia - Hb 7.5, Hct 24, MCV 117. Similar to previous admissions - B12, folate nml in Oct - Monitor with am CBC. Transfuse if Hb <8 due to cardiac hx. - heme/onc consulted - repeat hemagram pending this AM Coagulopathy, improving A- INR 6.5. Cause unknown. At last admission INR was 3.9 and home xarelto was held on admission and discharge. He had partial malignancy workup at that admission including negative bone scan. Bone biopsy not performed 2/2 coagulopathy. He had plans for f/u with Dr. Rdz however unknown if he followed up P- consult heme/onc, appreciate recommendations. Bone Marrow Biopsy on 07/10. Palliative care to see pt this morning to discuss treatment goals as pt has voiced thought of not pursuing treatment of MM. - SCDs for DVT ppx - discontinue home xarelto - INR 07/10 2.0 Hypokalemia, resolved A- K 2.6. Mg 1.7. replace and trand. K on 07/09 3.0. K 4.0 on 07/10. P- On tele - added 20 mEq once daily. - repeat BMP pending this AM. NSTEMI type 2, improved - Trop 0.364 -> 0.25, higher than on previous admissions. Suspect NSTEMI type 2 2/2 CHF - pt coagulopathic with INR of 6.5, holding heparin at this time. - Trop down trended 0.167 on 07/09. No chest pain. KAYLEY A- Likely cardiorenal syndrome vs MM causing KAYLEY. Cr 2.54 -> 2.4-> 2.59-> 2.03, baseline ~1.10 P- Monitor with am CMP and adjust meds as necessary - lasix decreased to 40 BID IV, cardiology and nephrology consulted for recs on diuresis in setting of KAYLEY. - Renal US ordered: no obstruction or abnormalities. - Nephrology consulted, appreciate recommendations Chronic venous insufficiency - Chronic skin changes. New blisters - Wound care consulted - Elevate legs. Recommend stockings outpt AFib - Hx of AFib, aware and present on echo this admission. - Rate-controlled in ED - On tele - Continue home coreg once BP improves and CHF exacerbation improved. - not candidate for anticoagulation other than ASA 81 mg daily due to coagulopathy. Chronic conditions HTN: see above HLD: continue home meds BPH: continue home meds Code: DNAR PCP: [facility] dis[facility]: inpatient, >48 hr anticipated Palliative care consulted 07/10, as pt not sure he wants to take measures to treat the MM. Addendum - Attending - Attending Attestation Date/Time: 07/11/20 9217 I personally evaluated the patient and discussed the management with Dr. Rodriguez I agree with the History, Examination, Assessment and Plan documented above with any addition or exceptions noted below - Patient tired; still feeling SOB. Afebrile VSS. A/P: 1) KAYLEY on CKD - improved; Appreciate nephrology assistance and recommendations. 2) Voume overload- multifactorial including combine HFrEF and diastolic dysfunction, and anemia - continue judicious diurectics. 3) Anemia- s/p bone ,arrow on 07/10; results pending. Repeat labs pending.
[2020-07-11] MEDS: Atorvastatin Calcium 40 MG TAB PO SCH (08:41)
[2020-07-11] MEDS: Aspirin Chewable 81 MG TAB PO SCH (08:41)
[2020-07-11] MEDS: Tamsulosin HCl 0.4 MG CAP PO SCH (08:46)
[2020-07-11] MEDS: Famotidine 20 MG TAB PO SCH (08:46)
[2020-07-11] MEDS: Finasteride 5 MG TAB PO SCH (08:46)
[2020-07-11] MEDS: Fenofibrate Nanocrystallized 145 MG TAB PO SCH (08:46)
[2020-07-11] MEDS: Potassium Chloride 20 MEQ TAB PO SCH (08:53)
--- NOTE | 2020-07-11 11:24 | CT ---
Bone marrow aspiration biopsy CT-guided HISTORY: Myeloma. FINDINGS: After explaining the procedure and answering all questions, limited CT imaging of the pelvi s was performed with patient prone. Sterile technique, buffered local anesthesia, CT guidance, and a posterior approach were used to care fully advance an 11-gauge bone biopsy needle to the posterior cortex of the left iliac body. Position confirmed with CT. Needle carefully engaged into the bone cortex and blood aspirate obtained . Bone marrow core obtained and submitted to pathology for evaluation. Patient tolerated the procedure well and was returned in unchanged condition. IMPRESSION : Technically successful CT-guided bone marrow aspiration biopsy. Transcribed Date/Time: 07/11/2020 11:24 AM
--- NOTE | 2020-07-11 11:57 | PRG ---
DATE OF SERVICE: 07/11/2020 SUBJECTIVE: Patient was seen and examined at bedside and overnight events noted. Patient denies any shortness of breath or chest pain or palpitation. No history of nausea or vomiting or diarrhea or fever or chills or cramps. OBJECTIVE: General: This is a well-built male, in no apparent distress. Vital Signs: Temperature . Heart Rate 74. Respiratory rate 20. Blood pressure 124/74. HEENT: Atraumatic, normocephalic. Oral mucosa is moist. Neck: Supple. Cardiovascular: S1, S2 heard. Rate and rhythm regular. Respiratory: Clear to auscultation. Gastrointestinal: Abdomen is soft. Musculoskeletal: No tenderness. No edema. Dermatologic: No skin rash. Neurologic: Alert and awake and oriented x3. No focal neurologic deficits. Moving all the extremities. Psychiatric: Mood and affect normal. Musculoskeletal: 1+ edema. LABORATORY DATA: Potassium 4.0, BUN is 31, and creatinine is 2.03. ASSESSMENT AND PLAN: 1. Acute kidney injury on chronic kidney stage 3, stable. 2. Hypokalemia, better. 3. Edema, controlled. Responding to diuretics. 4. Multiple myeloma. Follow up with Primary Team. 5. Proteinuria. 6. Anemia. 7. Continue current management and follow up with Oncology for further therapy of multiple myeloma. Job ID: [id number]
[2020-07-11] MEDS: Acetaminophen 325 MG TAB PO PRN (12:16)
[2020-07-11 12:18] LABS: Hemoglobin 8.3 g/dL (14.0-18.0); Platelet Count 140 thou/uL (130-400)
[2020-07-11 12:24] LABS: INR-International Normal Ratio 1.7; PTT 38.4 sec (22.9-36.1); Prothrombin Time 20.7 sec (12.0-14.7)
[2020-07-11 12:36] LABS: ALT (SGPT) 23 U/L (8-55); AST (SGOT) 51 U/L (5-34); Alkaline Phosphatase 91 U/L (40-110); BUN (Urea Nitrogen) 25 mg/dL (8.4-25.7); Calc. Creatinine Clearance 77 mL/min (70-130); Calcium 9.5 mg/dL (7.8-10.44); Globulin 2.5 g/dL (2.4-3.5); Glucose 129 mg/dL (83-110); Protein, Total 5.5 g/dL (5.8-8.1)
[2020-07-11 12:46] LABS: Anion Gap 15 mmol/L (10-20); Chloride 92 mmol/L (98-107); Potassium 3.5 mmol/L (3.5-5.1); Sodium 145 mmol/L (136-145)
[2020-07-11 12:49] LABS: Carbon Dioxide 42 mmol/L (23-31)
--- NOTE | 2020-07-11 14:34 | PDOC.MOPN ---
Interval History: No complaints today other than not eating much, weakness. - Vital Signs Vital Signs: Vital Signs (12 hours) Temp Pulse Resp BP Pulse Ox 07/11/20 11:55 97.7 F 67 18 117/67 100 07/11/20 08:40 100 07/11/20 08:32 98.1 F 75 22 H 124/74 100 07/11/20 03:41 97.7 F 72 20 105/64 99 Weight Admit Weight 255 lb 11.2 oz Weight 262 lb 14.4 oz Most Recent Monitor Data Heart Rate from ECG 72 NIBP 102/66 Respiration from ECG 30 - Physical Exam General: Alert, Oriented x3, No acute distress HEENT: Atraumatic, PERRLA, EOMI, Mucous membr. moist/pink Lungs: Clear to auscultation Cardiovascular: Regular rate Abdomen: Normal bowel sounds, Other (distended) Neurological: Normal speech Psych/Mental Status: Mental status NL - Labs Result Diagrams: 07/11/20 12:08 07/11/20 12:08 Lab results: Laboratory Results - last 24 hr 07/11/20 12:08: PT 20.7 H, INR 1.7, APTT 38.4 H 07/11/20 12:08: Hgb 8.3 L, Hct 27.1 L, Plt Count 140 07/11/20 12:08: Sodium 145, Potassium 3.5, Chloride 92 L, Carbon Dioxide 42 H*, Anion Gap 15, BUN 25, Creatinine 1.47 H, Estimated GFR (MDRD) 47, Glucose 129 H, Calcium 9.5, Total Bilirubin 1.0, AST 51 H, ALT 23, Alkaline Phosphatase 91, Serum Total Protein 5.5 L, Albumin 3.0 L, Globulin 2.5, Albumin/Globulin Ratio 1.2 Status: lab reviewed by me A/P - Problem (1) Myeloma Current Visit: Yes Code(s): C90.00 - MULTIPLE MYELOMA NOT HAVING ACHIEVED REMISSION Status: Acute (2) Coagulopathy Current Visit: Yes Status: Acute - Plan Plan: bone marrow confirms myeloma, FISH pending likely start treatment with Revlimid, dex, Velcade Will see Dr. Rdz in the office next week to discuss treatment options Would increase physical therapy may need snf/rehab at discharge
--- NOTE | 2020-07-11 16:50 | PDOC.PALCO ---
Palliative Care Consult - Consult Details Requesting Physician: Dr Bui Reason for Consult: goals of care, symptom management, assistance with communication prognosis/disease Family Members Present: none - Pertinent HPI 70-year-old patient who has been followed by Dr. Chapman for many years and was admitted with shortness of breath and increasing edema. BNP was 2500. He was diuresed with dobutamine and IV Lasix. Echo with EF 40 to 45%. Also found to have anemia and received 1 unit packed RBCs in consult with oncology for possible myeloma. He has a past medical history of hypertension, hyperlipidemia, A. fib, systolic heart failure, BPH, cellulitis, DM type II obesity and CAD. Discussed goals of care at the bedside and he would like to return home if he can take care of himself. Reviewed that his diuresis was going quite well having a good urine output and his vital signs were stable. Discussed possibility of short-term shelter for conditioning and strengthening and then perhaps he can return home. He does have a supportive family with 4 children. He states his daughter Neeta is his medical decision- maker. - Pertinent PMH Coronary artery disease, lower extremity edema, cellulitis, anemia, chronic A. fib, type 2 diabetes, morbid obesity, hypertension, hyperlipidemia, cardioversion for A. fib - Social History Smoking Status: Never smoker Alcohol Use: none Drug Use History: none Living Situation: independent - Medications MAR Reviewed: Yes - Allergies Allergies/Adverse Reactions: Allergies Allergy/AdvReac Type Severity Reaction Status Date / Time No Known Allergies Allergy Verified 07/08/20 04:08 - ROS Constitutional: alert, weakness Respiratory: dry cough, shortness of breath with extertion Cardiology: edema, orthopnea Musculoskeletal: limited mobility - Objective Vital Signs: Vital Signs - Most Recent Temp Pulse Resp BP Pulse Ox 97.7 F 64 20 112/63 96 07/11/20 15:08 07/11/20 15:08 07/11/20 15:08 07/11/20 15:08 07/11/20 15:08 - Advance Directives Medical Power of Senior Technical Program Manager: Neeta Specific Directives: DNAR - Physical Exam Constitutional: NAD HEENT: EOMI, moist MMs, sclera anicteric Respiratory: clear to auscultation bilateral, no rales, no rhonchi, no wheezing, unlabored breathing Deviation from normal: Decreased bases Cardiovascular: no rub, RRR Deviation from normal: Systolic ejection murmur at the apex which radiates to his axilla Gastrointestinal: continent Genitourinary: grace catheter Deviation from normal: +3 pitting edema to lower extremities Neurology: moves all 4 limbs Skin: cap refill <2 seconds, normal turgor Psychiatric: A&O x 3, normal affect - Problem List (1) Encounter for palliative care Code(s): Z51.5 - ENCOUNTER FOR PALLIATIVE CARE Current Visit: Yes Status: Acute (2) HFrEF (heart failure with reduced ejection fraction) Code(s): I50.20 - UNSPECIFIED SYSTOLIC (CONGESTIVE) HEART FAILURE Current Visit: Yes Status: Acute (3) Symptomatic anemia Code(s): D64.9 - ANEMIA, UNSPECIFIED Current Visit: Yes Status: Acute (4) Acute respiratory failure with hypoxia and hypercarbia Code(s): J96.01 - ACUTE RESPIRATORY FAILURE WITH HYPOXIA; J96.02 - ACUTE RESPIRATORY FAILURE WITH HYPERCAPNIA Current Visit: No Status: Chronic (5) Afib Code(s): I48.91 - UNSPECIFIED ATRIAL FIBRILLATION Current Visit: Yes Status: Chronic Qualifiers: Atrial fibrillation type: paroxysmal Qualified Code(s): I48.0 - Paroxysmal atrial fibrillation (6) Obesity (BMI 30-39.9) Code(s): E66.9 - OBESITY, UNSPECIFIED Current Visit: Yes Status: Chronic (7) Cellulitis of both lower extremities Code(s): L03.115 - CELLULITIS OF RIGHT LOWER LIMB; L03.116 - CELLULITIS OF LEFT LOWER LIMB Current Visit: Yes Status: Resolved - Plan/Recommendations Plan: Introduced palliative care to establish goals of care He states that he would like to return home if he is able to function independently Discussed possible need for shelter for strengthening and conditioning after discharge from hospital and he agrees 90 minutes spent on this encounter with >50% of the time in counseling and coordination of care. Thank you for this very appropriate consult.
[2020-07-12 05:04] LABS: Hemoglobin 8.1 g/dL (14.0-18.0); Platelet Count 151 thou/uL (130-400)
[2020-07-12 05:14] LABS: INR-International Normal Ratio 1.6; PTT 38.8 sec (22.9-36.1); Prothrombin Time 19.8 sec (12.0-14.7)
[2020-07-12 05:24] LABS: ALT (SGPT) 24 U/L (8-55); AST (SGOT) 53 U/L (5-34); Alkaline Phosphatase 95 U/L (40-110); BUN (Urea Nitrogen) 24 mg/dL (8.4-25.7); Bilirubin, Total 1.2 mg/dL (0.2-1.2); Calc. Creatinine Clearance 104 mL/min (70-130); Calcium 9.6 mg/dL (7.8-10.44); Globulin 2.5 g/dL (2.4-3.5); Glucose 105 mg/dL (83-110); Protein, Total 5.5 g/dL (5.8-8.1)
[2020-07-12 05:33] LABS: Anion Gap 16 mmol/L (10-20); Carbon Dioxide 37 mmol/L (23-31); Chloride 92 mmol/L (98-107); Potassium 3.3 mmol/L (3.5-5.1); Sodium 142 mmol/L (136-145)
[2020-07-12] MEDS: Furosemide 40 MG/4 ML VIAL SLOW IVP SCH ×2 (05:47→14:13)
--- NOTE | 2020-07-12 07:07 | PDOC.FM ---
- Subjective Subjective: Pt is feeing better this mornig, less sOB and les sO2 requirement overnight. 2 L NC improved renal function dx confirmed of MM with bone marrow biopsy. - Objective MAR Reviewed: Yes Vital Signs & Weight: Vital Signs (12 hours) Temp Pulse Resp BP Pulse Ox 07/12/20 00:00 98.7 F 99 25 H 106/55 L 100 Weight Admit Weight 115.984 kg Weight 119.249 kg Most Recent Monitor Data Heart Rate from ECG 72 NIBP 102/66 Respiration from ECG 30 I&O: 07/11/20 07/12/20 07/13/20 06:59 06:59 06:59 Intake Total 1574 960 Output Total 3400 0645 Balance -1826 -1615 Result Diagrams: 07/12/20 04:45 07/12/20 04:45 Phys Exam - Physical Examination Constitutional: NAD HEENT: moist MMs, sclera anicteric Neck: supple, full ROM Respiratory: no wheezing, no rales, no rhonchi, clear to auscultation bilateral Cardiovascular: RRR diastolic and sys murmur Gastrointestinal: non-tender, no distention, positive bowel sounds Musculoskeletal: pulses present improved peripheral pitting edema to trace Neurological: non-focal, moves all 4 limbs Psychiatric: normal affect, A&O x 3 Skin: normal turgor, cap refill <2 seconds Dx/Plan (1) HFrEF (heart failure with reduced ejection fraction) Code(s): I50.20 - UNSPECIFIED SYSTOLIC (CONGESTIVE) HEART FAILURE Status: Acute (2) Symptomatic anemia Code(s): D64.9 - ANEMIA, UNSPECIFIED Status: Acute (3) Coagulopathy Status: Acute (4) Hypokalemia Code(s): E87.6 - HYPOKALEMIA Status: Acute (5) Afib Code(s): I48.91 - UNSPECIFIED ATRIAL FIBRILLATION Status: Chronic Qualifiers: Atrial fibrillation type: paroxysmal Qualified Code(s): I48.0 - Paroxysmal atrial fibrillation - Plan Plan: CHF exacerbation A- Stable but still overloaded. HFrEF: echo in 2016 showed EF 30-40% with mitral/aortic/tricuspid valve regurg and LA dilatation. BNP ~2500 on admission. Concern for medication non compliance generally. P- Sanchez with strict I&O, daily weight, 1500mL fluid restriction - IV lasix 80mg bid, changed to 40 mg BID due to worsening renal function. - hold home coreg as unable to tell if he had been taking this at home, will confirm he is not on ACEi/ARB once mental status improves. Consider adding if BP improves. - Repeat echo ordered. EF 40-50%, severely dilated LA, increased pulm artery pressures ~50 mmHG. - Cardiology consulted due to abnormal echo and worsening renal function with diuresis. continue lasix and dobutamine ggt per Dr. Botello. Pt was off of dobutamine ggt on 07/08. Dr. Chapman to see pt today and will clarify if dobtamine ggt is desired by him. Awaiting recommendations. - CHF exacerbation improved clinically 07/12. Cardiorenal syndrome, improved A- improving. BPs normal while on 2.5 of dobutamin gtt. He has hx of HTN but soft pressures since arrival. dobutamine ggt d/c'd on 07/08 afternoon. P- Cardiology and Nephrology consulted for recs. - Cr 2.59 GFR 24, worsened with diuresis. good urine output last 24 hrs and Cr 2.03. continued good urine output last 48 hrs with most recent cr 1.08. - daily BMP Free Light Chain Multiple Myeloma - Oncology consulted, appreciate recs - Bone marrow biopsy 07/10 confirmed diagnosis, 24 hr urine electrophoresis and light chain assay pending - palliative care consulted due to patients states wishes on 07/10 of being unsure if he wanted to pursue treatment options. after discussions with family, they are moving more towards treatment. PT/OT recs appreciated for discharge planning on location. SNF/Rehab/Home. Macrocytic anemia, with symptomatic anemia - Hb 7.5, Hct 24, MCV 117. Similar to previous admissions - B12, folate nml in Oct - Monitor with am CBC. Transfuse if Hb <8 due to cardiac hx. - heme/onc consulted - repeat hemagram 8.1/26.4 on 07/12. Coagulopathy, improving A- INR 6.5. Cause unknown. At last admission INR was 3.9 and home xarelto was held on admission and discharge. He had partial malignancy workup at that admission including negative bone scan. Bone biopsy not performed 2/2 coagulopathy. He had plans for f/u with Dr. Rdz however unknown if he followed up P- consult heme/onc, appreciate recommendations. Bone Marrow Biopsy on 07/10. Palliative care to see pt this morning to discuss treatment goals as pt has voiced thought of not pursuing treatment of MM. - SCDs for DVT ppx - discontinue home xarelto - INR 07/10 2.0, 1.6 on 07/12. Hypokalemia A- K 2.6. Mg 1.7. replace and trand. K on 07/09 3.0. K 4.0 on 07/10. P- On tele - added 20 mEq once daily. - repeat BMP wiht K 3.3, given 40 meq. NSTEMI type 2, improved - Trop 0.364 -> 0.25, higher than on previous admissions. Suspect NSTEMI type 2 2/2 CHF - pt coagulopathic with INR of 6.5, holding heparin at this time. - Trop down trended 0.167 on 07/09. No chest pain. KAYLEY, improved A- Likely cardiorenal syndrome vs MM causing KAYLEY. Cr 2.54 -> 2.4-> 2.59-> 2.03-> 1.08. baseline ~1.10 P- Monitor with am CMP and adjust meds as necessary - lasix decreased to 40 BID IV, cardiology and nephrology consulted for recs on diuresis in setting of KAYLEY. - Renal US ordered: no obstruction or abnormalities. - Nephrology consulted, appreciate recommendations Chronic venous insufficiency - Chronic skin changes. New blisters - Wound care consulted - Elevate legs. Recommend stockings outpt AFib - Hx of AFib, aware and present on echo this admission. - Rate-controlled in ED - On tele - Continue home coreg once BP improves and CHF exacerbation improved. - not candidate for anticoagulation other than ASA 81 mg daily due to coagulopathy. Chronic conditions HTN: see above HLD: continue home meds BPH: continue home meds Code: DNAR PCP: [facility] dis[facility]: inpatient, >48 hr anticipated pending placement decision and jang tart treatment for MM with onc outpt. Addendum - Attending - Attending Attestation Date/Time: 07/12/20 1151 I personally evaluated the patient and discussed the management with Dr. Rodriguez I agree with the History, Examination, Assessment and Plan documented above with any addition or exceptions noted below - Patient feeling a little better; does report that his breathing is better. Afebrile VSS A/P: 1) Acute hypoxic resp failure secondary to combined heart failure- has diuresed well; continue to wean O2 as tolerated. 2) Kayley- much improved; back to baseline Cr. 3) Myeloma- will discuss with oncology, 4) Deconditioning- PT/OT eval ordered. Will discuss with family SNF versus home with HH.
[2020-07-12] MEDS: Tamsulosin HCl 0.4 MG CAP PO SCH (08:55)
[2020-07-12] MEDS: Fenofibrate Nanocrystallized 145 MG TAB PO SCH (08:55)
[2020-07-12] MEDS: Potassium Chloride 20 MEQ TAB PO SCH (08:55)
[2020-07-12] MEDS: Atorvastatin Calcium 40 MG TAB PO SCH (08:55)
[2020-07-12] MEDS: Famotidine 20 MG TAB PO SCH (08:56)
[2020-07-12] MEDS: Finasteride 5 MG TAB PO SCH (08:56)
[2020-07-12] MEDS: Aspirin Chewable 81 MG TAB PO SCH (08:56)
[2020-07-12] MEDS ORDERED: Potassium Chloride 20 MEQ TAB PO SCH (09:30)
--- NOTE | 2020-07-12 12:06 | PRG ---
DATE OF SERVICE: 07/12/2020 SUBJECTIVE: Patient was seen and examined at bedside and overnight events noted. Patient denies any shortness of breath or chest pain or palpitation. No history of nausea or vomiting or diarrhea or fever or chills or cramps. OBJECTIVE: GENERAL: This is a well-built male, in no apparent distress. VITAL SIGNS: Temperature 97.7. Heart rate 80. Respiratory rate 20. Blood pressure 114/74. HEENT: Atraumatic, normocephalic. Oral mucosa is moist NECK: Supple. CARDIOVASCULAR: S1, S2 heard. Rate and rhythm regular. RESPIRATORY: Clear to auscultation. GASTROINTESTINAL: Abdomen is soft. MUSCULOSKELETAL: No tenderness. 2+ edema. DERMATOLOGIC: No skin rash. NEUROLOGIC: Alert and awake and oriented X3. No focal neurologic deficits. Moving all the extremities. PSYCHIATRIC: Mood and affect normal. LABORATORY DATA: Potassium 3.3, BUN is 24, creatinine is 1.08. ASSESSMENT AND PLAN: 1. Acute kidney injury on chronic kidney disease. Labs are much better. 2. Edema, getting better. 3. Multiple myeloma. Follow with Oncology. 4. Hypokalemia, replace. 5. Proteinuria. 6. Follow with Oncology for treatment. Family is deciding to have treatment, and renal function is much better. Cautious use of diuretics recommended at this time, and replace electrolytes and monitor magnesium and potassium. We will follow. Job ID: [id number]
--- NOTE | 2020-07-12 14:34 | PDOC.PALPN ---
Palliative Progress Note - Subjective "I'm feeling better today but my legs are weak" - Objective Vital Signs: Vital Signs - Most Recent Temp Pulse Resp BP Pulse Ox 98.0 F 78 24 H 93/55 L 99 07/12/20 11:42 07/12/20 11:42 07/12/20 11:42 07/12/20 11:42 07/12/20 11:42 - Physical Exam Constitutional: NAD HEENT: EOMI, moist MMs, sclera anicteric Respiratory: clear to auscultation bilateral, no rhonchi, no wheezing, unlabored breathing Deviation from normal: Decreased bases Cardiovascular: RRR Deviation from normal: 2/6 ANUJA Gastrointestinal: continent Genitourinary: grace catheter Deviation from normal: lower extremity edema with redness and weeping blebs Neurology: moves all 4 limbs, no focal deficits, normal speech Skin: cap refill <2 seconds, normal turgor, fragile Psychiatric: A&O x 3, normal affect, normal mood - Assessment (1) Encounter for palliative care Code(s): Z51.5 - ENCOUNTER FOR PALLIATIVE CARE Current Visit: Yes Status: Acute (2) HFrEF (heart failure with reduced ejection fraction) Code(s): I50.20 - UNSPECIFIED SYSTOLIC (CONGESTIVE) HEART FAILURE Current Visit: Yes Status: Acute (3) Symptomatic anemia Code(s): D64.9 - ANEMIA, UNSPECIFIED Current Visit: Yes Status: Acute (4) Acute respiratory failure with hypoxia and hypercarbia Code(s): J96.01 - ACUTE RESPIRATORY FAILURE WITH HYPOXIA; J96.02 - ACUTE RESPIRATORY FAILURE WITH HYPERCAPNIA Current Visit: No Status: Chronic (5) Afib Code(s): I48.91 - UNSPECIFIED ATRIAL FIBRILLATION Current Visit: Yes Status: Chronic Qualifiers: Atrial fibrillation type: paroxysmal Qualified Code(s): I48.0 - Paroxysmal atrial fibrillation (6) Obesity (BMI 30-39.9) Code(s): E66.9 - OBESITY, UNSPECIFIED Current Visit: Yes Status: Chronic (7) Cellulitis of both lower extremities Code(s): L03.115 - CELLULITIS OF RIGHT LOWER LIMB; L03.116 - CELLULITIS OF LEFT LOWER LIMB Current Visit: Yes Status: Resolved - Plan Plan: Patient is considering pursuing [facility]/inpatient rehab after stable for discharge for strengthening and conditioning in the hopes that he might be able to return home to live with his granddaughter Has PT OT ordered to mobilize Bone marrow confirms myeloma and appointment made to meet with Dr. dRz next week in the office to discuss treatment options We will sign off this case, may send a new referral if needed in the future 20 minutes spent on this encounter with >50% of the time in counseling and coordination of care.
[2020-07-12 21:07] LABS: Albumin, PEP 24hr Ur 11.8 % (NOT ESTAB.); Alpha-1-Globulin, PEP 24h Ur 3.1 % (NOT ESTAB.); Alpha-2-Globulin, PEP 24h Ur 6.3 % (NOT ESTAB.); Beta Globulin, PEP 24h Ur 12.6 % (NOT ESTAB.); Gamma Globulin, PEP 24h Ur 66.2 % (NOT ESTAB.); M-Spike,% PEP 24hr Ur Note: % (Not Observed); Protein, PEP 24hr calculated 3887 mg/24 hr (30-150); Protein, Urine 109.5 mg/dL (Not Estab.)
[2020-07-13 04:59] LABS: Hemoglobin 8.2 g/dL (14.0-18.0); Platelet Count 151 thou/uL (130-400)
[2020-07-13 05:03] LABS: INR-International Normal Ratio 1.5; PTT 37.1 sec (22.9-36.1); Prothrombin Time 18.8 sec (12.0-14.7)
[2020-07-13 05:27] LABS: ALT (SGPT) 26 U/L (8-55); AST (SGOT) 56 U/L (5-34); Albumin 2.9 g/dL (3.4-4.8); Alkaline Phosphatase 89 U/L (40-110); Anion Gap 12 mmol/L (10-20); BUN (Urea Nitrogen) 16 mg/dL (8.4-25.7); Bilirubin, Total 1.4 mg/dL (0.2-1.2); Calc. Creatinine Clearance 141 mL/min (70-130); Calcium 9.7 mg/dL (7.8-10.44); Carbon Dioxide 36 mmol/L (23-31); Chloride 95 mmol/L (98-107); Globulin 2.4 g/dL (2.4-3.5); Glucose 103 mg/dL (83-110); Potassium 3.2 mmol/L (3.5-5.1); Protein, Total 5.3 g/dL (5.8-8.1); Sodium 140 mmol/L (136-145)
[2020-07-13] MEDS ORDERED: Potassium Chloride 20 MEQ TAB PO SCH (07:00)
--- NOTE | 2020-07-13 07:00 | PDOC.FM ---
- Subjective Subjective: tele monitoring a fib 60-80's rate overnight. CM to see for placement now that clinically improved transitioned to PO lasix yesterday. Pt 100% on 2 L NC overnight, weaning O2 this morning 97% off NC while eating br eakfast, will continue to wean today - Objective MAR Reviewed: Yes Vital Signs & Weight: Vital Signs (12 hours) Temp Pulse Resp BP Pulse Ox 07/13/20 03:08 98.0 F 85 25 H 105/58 L 100 07/13/20 00:00 97.5 F L 73 25 H 102/58 L 100 07/12/20 20:00 97.4 F L 85 25 H 108/52 L 100 Weight Admit Weight 115.984 kg Weight 119.249 kg Most Recent Monitor Data Heart Rate from ECG 72 NIBP 102/66 Respiration from ECG 30 I&O: 07/12/20 07/13/20 07/14/20 06:59 06:59 06:59 Intake Total 1060 630 Output Total 3275 200 Balance -2215 430 Result Diagrams: 07/13/20 04:35 07/13/20 04:35 Phys Exam - Physical Examination Constitutional: NAD sitting up talking and eating breakfast. HEENT: moist MMs, sclera anicteric Neck: supple, full ROM few crackles auscultated over LLL Cardiovascular: RRR sys and jerson murmur Gastrointestinal: soft, non-tender, no distention, positive bowel sounds Musculoskeletal: pulses present, edema present (trace peripheral, much improved form previous exams. ) Neurological: non-focal, moves all 4 limbs Psychiatric: normal affect Skin: normal turgor, cap refill <2 seconds Dx/Plan (1) HFrEF (heart failure with reduced ejection fraction) Code(s): I50.20 - UNSPECIFIED SYSTOLIC (CONGESTIVE) HEART FAILURE Status: Acute (2) Symptomatic anemia Code(s): D64.9 - ANEMIA, UNSPECIFIED Status: Acute (3) Coagulopathy Status: Acute (4) Hypokalemia Code(s): E87.6 - HYPOKALEMIA Status: Acute (5) Afib Code(s): I48.91 - UNSPECIFIED ATRIAL FIBRILLATION Status: Chronic Qualifiers: Atrial fibrillation type: paroxysmal Qualified Code(s): I48.0 - Paroxysmal atrial fibrillation - Plan Plan: CHF exacerbation, improving A- Stable but still overloaded. HFrEF: echo in 2016 showed EF 30-40% with mitral/aortic/tricuspid valve regurg and LA dilatation. BNP ~2500 on admission. Concern for medication non compliance generally. P- Sanchez with strict I&O, daily weight, 1500mL fluid restriction - IV lasix 80mg bid, changed to 40 mg BID due to worsening renal function. - hold home coreg as unable to tell if he had been taking this at home, will confirm he is not on ACEi/ARB once mental status improves. Consider adding if BP improves. - Repeat echo ordered. EF 40-50%, severely dilated LA, increased pulm artery pressures ~50 mmHG. - Cardiology consulted due to abnormal echo and worsening renal function with diuresis. continue lasix and dobutamine ggt per Dr. Botello. Pt was off of dobutamine ggt on 07/08. Dr. Chapman to see pt today and will clarify if dobtamine ggt is desired by him. No further recommendations from cardiology hav ebeen placed. - CHF exacerbation improved clinically since 07/12. Continues to show imp rovement, transition to Po lasix 40 mg BID on 07/12. Free Light Chain Multiple Myeloma - Oncology consulted, appreciate recs - Bone marrow biopsy 07/10 confirmed diagnosis, 24 hr urine electrophoresis and light chain assay showed M spike - palliative care consulted due to patients states wishes on 07/10 of being unsure if he wanted to pursue treatment options. after discussions with family, they are moving more towards treatment. PT/OT recs appreciated for discharge pl anning on location. SNF/Rehab/Home. Macrocytic anemia, with symptomatic anemia, improved - Hb 7.5, Hct 24, MCV 117. Similar to previous admissions - B12, folate nml in Oct - Monitor with am CBC. Transfuse if Hb <8 due to cardiac hx. - heme/onc consulted - repeat hemagram 8.1/26.4 on 07/12. 8.2/26.3 on 07/13. Coagulopathy, improved A- INR 6.5. Cause unknown. At last admission INR was 3.9 and home xarelto was held on admission and discharge. He had partial malignancy workup at that admission including negative bone scan. Bone biopsy not performed 2/2 coagulopathy. He had plans for f/u with Dr. Rdz however unknown if he followed up P- consult heme/onc, appreciate recommendations. Bone Marrow Biopsy on 07/10. Palliative care to see pt this morning to discuss treatment goals as pt has voiced thought of not pursuing treatment of MM. - SCDs for DVT ppx - discontinue home xarelto - INR 07/10 2.0, 1.6 on 07/12. 1.5 on 07/13 Hypokalemia A- K 2.6. Mg 1.7. replace and trend. AM mag added 07/13. P- On tele - added 20 mEq once daily. - repeat BMP with K 3.2, given 40 meq. NSTEMI type 2, improved - Trop 0.364 -> 0.25, higher than on previous admissions. Suspect NSTEMI type 2 2/2 CHF - pt coagulopathic with INR of 6.5, holding heparin at this time. - Trop down trended 0.167 on 07/09. No chest pain. KAYLEY, improved A- Likely cardiorenal syndrome vs MM causing KAYLEY. Cr 2.54 -> 2.4-> 2.59-> 2.03-> 1.08-> 0.80. baseline ~1.10 P- Monitor with am CMP and adjust meds as necessary - lasix decreased to 40 BID IV, cardiology and nephrology consulted for recs on diuresis in setting of KAYLEY. - Renal US ordered: no obstruction or abnormalities. - Nephrology consulted, appreciate recommendations Chronic venous insufficiency - Chronic skin changes. New blisters - Wound care consulted - Elevate legs. Recommend stockings outpt AFib - Hx of AFib, aware and present on echo this admission. - Rate-controlled in ED - On tele - Continue home coreg once BP improves and CHF exacerbation improved. - not candidate for anticoagulation other than ASA 81 mg daily due to coagulopathy. Cardiorenal syndrome, improved A- improving. BPs normal while on 2.5 of dobutamin gtt. He has hx of HTN but soft pressures since arrival. dobutamine ggt d/c'd on 07/08 afternoon. P- Cardiology and Nephrology consulted for recs. - Cr 2.59 GFR 24, worsened with diuresis. good urine output last 24 hrs and Cr 2.03. continued good urine output last 48 hrs with most recent cr 1.08. - daily BMP Chronic conditions HTN: see above HLD: continue home meds BPH: continue home meds Code: DNAR PCP: [facility]: inpatient, >48 hr anticipated pending placement decision and jang tart treatment for MM with onc outpt. Addendum - Attending - Attending Attestation Date/Time: 07/13/20 [id number] I personally evaluated the patient and discussed the management with Dr. Rodriguez I agree with the History, Examination, Assessment and Plan documented above with any addition or exceptions noted below - Patient feeling a little better; denies any SOB. Appetite fair. Afebrile VSS. A/P: 1) CHF exacerbation- improved; continue current meds. 2) KAYLEY- resolved; Cr back to abaseline. 3) Myeloma - pl ans to follow-up with oncology as outpatient. 4) Deconditioning - continue PT/OT. Possible SNF placement.
[2020-07-13] MEDS: Famotidine 20 MG TAB PO SCH (08:07)
[2020-07-13] MEDS: Potassium Chloride 20 MEQ TAB PO SCH (08:07)
[2020-07-13] MEDS: Furosemide 40 MG TAB PO SCH ×2 (08:07→13:14)
[2020-07-13] MEDS: Fenofibrate Nanocrystallized 145 MG TAB PO SCH (08:07)
[2020-07-13] MEDS: Tamsulosin HCl 0.4 MG CAP PO SCH (08:07)
[2020-07-13] MEDS: Finasteride 5 MG TAB PO SCH (08:08)
[2020-07-13] MEDS: Aspirin Chewable 81 MG TAB PO SCH (08:08)
[2020-07-13] MEDS: Atorvastatin Calcium 40 MG TAB PO SCH (08:08)
[2020-07-13] MEDS ORDERED: Magnesium Oxide 400 MG TAB PO SCH (11:00)
--- NOTE | 2020-07-13 12:00 | PRG ---
DATE OF SERVICE: 07/13/2020 SUBJECTIVE: Patient was seen and examined at bedside and overnight events noted. Patient denies any shortness of breath or chest pain or palpitation. No history of nausea or vomiting or diarrhea or fever or chills or cramps. OBJECTIVE: GENERAL: This is in no acute distress. VITAL SIGNS: Temperature 97.7, pulse 84. Respiratory rate 18. Blood pressure 117/66. HEENT: Atraumatic, normocephalic. Oral mucosa is moist. NECK: Supple. CARDIOVASCULAR: S1, S2 heard. Rate and rhythm regular. RESPIRATORY: Clear to auscultation. GASTROINTESTINAL: Abdomen is soft. MUSCULOSKELETAL: No tenderness. No edema. DERMATOLOGIC: No skin rash. NEUROLOGIC: Alert and awake and oriented x3. No focal neurologic deficits. Moving all the extremities. PSYCHIATRIC: Mood and affect normal. LABORATORY DATA: Potassium 3.2, BUN is 16, creatinine 0.8. ASSESSMENT AND PLAN: 1. Acute kidney injury on chronic kidney disease, stage 2. Labs are much better. 2. Edema, slowly getting better. 3. Multiple myeloma. Follow with Oncology. 4. Hypokalemia, replace. 5. Proteinuria secondary to myeloma. 6. Replace potassium. Cautious use of diuretics. Consider 40 mg 1 to 2 p.o. daily as tolerated with close monitoring of labs. Follow with Oncology for myeloma treatment. Job ID: [id number]
--- NOTE | 2020-07-13 14:37 | PDOC.MOPN ---
Interval History: continues to be weak, oriented - Vital Signs Vital Signs: Vital Signs (12 hours) Temp Pulse Resp BP BP Pulse Ox 07/13/20 11:50 98.0 F 86 22 H 101/58 L 95 07/13/20 07:47 97.7 F 85 24 H 117/66 98 07/13/20 03:08 98.0 F 85 25 H 105/58 L 100 Weight Admit Weight 255 lb 11.2 oz Weight 262 lb 14.4 oz Most Recent Monitor Data Heart Rate from ECG 72 NIBP 102/66 Respiration from ECG 30 - Physical Exam General: Alert HEENT: Atraumatic Lungs: Clear to auscultation Cardiovascular: Regular rate Abdomen: Normal bowel sounds Neurological: Normal speech Psych/Mental Status: Mental status NL - Labs Result Diagrams: 07/13/20 04:35 07/13/20 04:35 Lab results: Laboratory Results - last 24 hr 07/13/20 04:35: Magnesium 1.9 07/13/20 04:35: PT 18.8 H, INR 1.5, APTT 37.1 H 07/13/20 04:35: Hgb 8.2 L, Hct 26.3 L, Plt Count 151 07/13/20 04:35: Sodium 140, Potassium 3.2 L, Chloride 95 L, Carbon Dioxide 36 H, Anion Gap 12, BUN 16, Creatinine 0.80, Estimated GFR (MDRD) Greater than 90, Glucose 103, Calcium 9.7, Total Bilirubin 1.4 H, AST 56 H, ALT 26, Alkaline Phosphatase 89, Serum Total Protein 5.3 L, Albumin 2.9 L, Globulin 2.4, Albumin/Globulin Ratio 1.2 07/09/20 18:31: Urine KIRBY Interpret Note: 07/09/20 18:31: U Tot Protein 24h, Calc 3887 H, Urine Total Protein 109.5, Urine Albumin (PEP) 11.8, U [id number] 3.1, U Eqwwe-3-[id number] 6.3, U Beta Globulin 12.6, U Gamma Globulin 66.2, U PEP M-Lan % 24 Hr Note:, U Abnormal Prot mg/24Hr TNP, Urine PEP Interpret Status: lab reviewed by me A/P - Problem (1) Myeloma Current Visit: Yes Code(s): C90.00 - MULTIPLE MYELOMA NOT HAVING ACHIEVED REMISSION Status: Acute (2) Coagulopathy Current Visit: Yes Status: Acute - Plan Plan: 1. Patient had multiple myeloma. Spoke with daughter, Neeta. 2. continue PT 3. Will discuss with Dr. Rdz. Hopefully, he can speak with daughter on Thursday.
[2020-07-14 05:16] LABS: Platelet Count 170 thou/uL (130-400)
[2020-07-14 05:21] LABS: INR-International Normal Ratio 1.6; Prothrombin Time 19.1 sec (12.0-14.7)
[2020-07-14 05:22] LABS: PTT 39.5 sec (22.9-36.1)
[2020-07-14 05:48] LABS: ALT (SGPT) 27 U/L (8-55); AST (SGOT) 59 U/L (5-34); Albumin 3.1 g/dL (3.4-4.8); Alkaline Phosphatase 100 U/L (40-110); Anion Gap 13 mmol/L (10-20); BUN (Urea Nitrogen) 13 mg/dL (8.4-25.7); Calc. Creatinine Clearance 146 mL/min (70-130); Calcium 9.9 mg/dL (7.8-10.44); Carbon Dioxide 30 mmol/L (23-31); Chloride 99 mmol/L (98-107); Globulin 2.7 g/dL (2.4-3.5); Glucose 127 mg/dL (83-110); Potassium 3.4 mmol/L (3.5-5.1); Protein, Total 5.8 g/dL (5.8-8.1); Sodium 139 mmol/L (136-145)
--- NOTE | 2020-07-14 06:09 | PDOC.FM ---
- Subjective Subjective: Pt is doing well today. He has no complaints. He remains AAO x 3. His daughter is not present but will be in today. He is unsure about treatment and thought the decision would be made today when his daughter arrives. Oncology states they will be in on Thursday. He denies pain. - Objective Vital Signs & Weight: Vital Signs (12 hours) Temp Pulse Resp BP BP Pulse Ox 07/14/20 04:00 97.5 F L 89 18 127/55 L 98 07/13/20 23:16 97.9 F 85 20 108/55 L 98 07/13/20 20:00 97.9 F 88 22 H 111/69 97 Weight Admit Weight 115.984 kg Weight 119.249 kg Most Recent Monitor Data Heart Rate from ECG 72 NIBP 102/66 Respiration from ECG 30 I&O: 07/12/20 07/13/20 07/14/20 06:59 06:59 06:59 Intake Total 1060 630 840 Output Total 3275 200 3600 Balance -2215 430 -6730 Result Diagrams: 07/14/20 04:47 07/14/20 04:47 EKG Reviewed by me: Yes (a-fib rate controlled on tele) Phys Exam - Physical Examination Constitutional: NAD HEENT: PERRLA, moist MMs Neck: full ROM JVD present Respiratory: no wheezing, clear to auscultation bilateral Cardiovascular: no significant murmur irregular rhythm, regular rate Gastrointestinal: soft, non-tender 2+ pitting edema Neurological: non-focal, moves all 4 limbs Psychiatric: normal affect, A&O x 3 Skin: no rash, normal turgor Dx/Plan - Plan Plan: CHF exacerbation, improving A- Stable but still overloaded. HFrEF: echo in 2016 showed EF 30-40% with mitral/aortic/tricuspid valve regurg and LA dilatation. BNP ~2500 on admission. Concern for medication non compliance generally. P- Sanchez with strict I&O, daily weight, 1500mL fluid restriction - IV lasix 80mg bid, changed to 40 mg BID due to worsening renal function. - hold home coreg as unable to tell if he had been taking this at home, will confirm he is not on ACEi/ARB once mental status improves. Consider adding if BP improves. - Repeat echo ordered. EF 40-50%, severely dilated LA, increased pulm artery pressures ~50 mmHG. - Cardiology consulted due to abnormal echo and worsening renal function with diuresis. continue lasix and dobutamine ggt per Dr. oBtello. Pt was off of dobutamine ggt on 07/08. Dr. Chapman to see pt today and will clarify if dobtamine ggt is desired by him. No further recommendations from cardiology hav ebeen placed. - CHF exacerbation improved clinically since 07/12. Continues to show improvement, transition to Po lasix 40 mg BID on 07/12. - Consider restarting coreg and starting low dose lisinopril for heart failure reduced EF Pulmonary Hypertension - could consider continuing oxygen NC Free Light Chain Multiple Myeloma - Oncology consulted, appreciate recs - Bone marrow biopsy 07/10 confirmed diagnosis, 24 hr urine electrophoresis and l ight chain assay showed M spike - palliative care consulted due to patients states wishes on 07/10 of being unsure if he wanted to pursue treatment options. after discussions with family, they are moving more towards treatment. PT/OT recs appreciated for discharge planning on location. SNF/Rehab/Home. Macrocytic anemia, with symptomatic anemia, improved - Hb 7.5, Hct 24, MCV 117. Similar to previous admissions - B12, folate nml in Oct - Monitor with am CBC. Transfuse if Hb <8 due to cardiac hx. - heme/onc consulted - repeat hemagram 8.1/26.4 on 07/12. 8.2/26.3 on 07/13. Coagulopathy, improved A- INR 6.5. Cause unknown. At last admission INR was 3.9 and home xarelto was held on admission and discharge. He had partial malignancy workup at that admission including negative bone scan. Bone biopsy not performed 2/2 coagulopathy. He had plans for f/u with Dr. Rdz however unknown if he followed up P- consult heme/onc, appreciate recommendations. Bone Marrow Biopsy on 07/10. Palliative care to see pt this morning to discuss treatment goals as pt has voiced thought of not pursuing treatment of MM. - SCDs for DVT ppx - discontinue home xarelto - INR 07/10 2.0, 1.6 on 07/12. 1.5 on 07/13 Hypokalemia A- K 2.6. Mg 1.7. replace and trend. AM mag added 07/13. P- On tele - added 20 mEq once daily. - repeat BMP with K 3.2, given 40 meq. NSTEMI type 2, improved - Trop 0.364 -> 0.25, higher than on previous admissions. Suspect NSTEMI type 2 2/2 CHF - pt coagulopathic with INR of 6.5, holding heparin at this time. - Trop down trended 0.167 on 07/09. No chest pain. KAYLEY, improved A- Likely cardiorenal syndrome vs MM causing KAYLEY. Cr 2.54 -> 2.4-> 2.59-> 2.03-> 1.08-> 0.80. baseline ~1.10 P- Monitor with am CMP and adjust meds as necessary - lasix decreased to 40 BID IV, cardiology and nephrology consulted for recs on diuresis in setting of KAYLEY. - Renal US ordered: no obstruction or abnormalities. - Nephrology consulted, appreciate recommendations Chronic venous insufficiency - Chronic skin changes. New blisters - Wound care consulted - Elevate legs. Recommend stockings outpt AFib - Hx of AFib, aware and present on echo this admission. - Rate-controlled in ED - On tele - Continue home coreg once BP improves and CHF exacerbation improved. - not candidate for anticoagulation other than ASA 81 mg daily due to coagulopathy. Cardiorenal syndrome, improved A- improving. BPs normal while on 2.5 of dobutamin gtt. He has hx of HTN but soft pressures since arrival. dobutamine ggt d/c'd on 07/08 afternoon. P- Cardiology and Nephrology consulted for recs. - Cr 2.59 GFR 24, worsened with diuresis. good urine output last 24 hrs and Cr 2.03. continued good urine output last 48 hrs with most recent cr 0.77 - daily BMP Chronic conditions HTN: see above HLD: continue home meds BPH: continue home meds Code: DNAR PCP: [facility]: inpatient, >48 hr anticipated pending placement decision and jang tart treatment for MM with onc outpt. Addendum - Attending - Attending Attestation Date/Time: 07/14/20 4734 I personally evaluated the patient and discussed the management with Dr. Griffith. I agree with the History, Examination, Assessment and Plan documented above with any addition or exceptions noted below. Patient still has crackles and edema. Will continue diuresis. Await onc. Likely placement in the future. Replete K, monitor anemia and creatinine. Will start lisinopril/coreg in light of HFrEF.
[2020-07-14] MEDS: Tamsulosin HCl 0.4 MG CAP PO SCH (08:33)
[2020-07-14] MEDS: Fenofibrate Nanocrystallized 145 MG TAB PO SCH (08:33)
[2020-07-14] MEDS: Aspirin Chewable 81 MG TAB PO SCH (08:33)
[2020-07-14] MEDS: Atorvastatin Calcium 40 MG TAB PO SCH (08:33)
[2020-07-14] MEDS: Furosemide 40 MG TAB PO SCH ×2 (08:33→14:55)
[2020-07-14] MEDS: Potassium Chloride 20 MEQ TAB PO SCH (08:33)
[2020-07-14] MEDS: Famotidine 20 MG TAB PO SCH (08:33)
[2020-07-14] MEDS: Finasteride 5 MG TAB PO SCH (08:34)
[2020-07-14] MEDS ORDERED: Lisinopril 2.5 MG TAB PO SCH (11:15)
--- NOTE | 2020-07-14 13:11 | PDOC.MOPN ---
Interval History: Pt feeling ok today, says he is trying to participate with PT. Spoke about prognosis and treatment with him and his daughter at the bedside. - Vital Signs Vital Signs: Vital Signs (12 hours) Temp Pulse Resp BP BP BP Pulse Ox 07/14/20 11:17 98.7 F 88 20 108/64 100 07/14/20 11:15 88 108/64 07/14/20 08:00 98.2 F 76 18 114/88 100 07/14/20 04:00 97.5 F L 89 18 127/55 L 98 Weight Admit Weight 255 lb 11.2 oz Weight 262 lb 14.4 oz Most Recent Monitor Data Heart Rate from ECG 72 NIBP 102/66 Respiration from ECG 30 - Physical Exam General: Alert, Oriented x3, Cooperative HEENT: EOMI Lungs: Normal air movement Cardiovascular: Regular rate Neurological: Cranial nerves 3-12 NL Psych/Mental Status: Mood NL - Labs Result Diagrams: 07/14/20 04:47 07/14/20 04:47 Lab results: Laboratory Results - last 24 hr 07/14/20 04:47: PT 19.1 H, INR 1.6, APTT 39.5 H 07/14/20 04:47: Hgb 9.0 L, Hct 28.4 L, Plt Count 170 07/14/20 04:47: Sodium 139, Potassium 3.4 L, Chloride 99, Carbon Dioxide 30, Anion Gap 13, BUN 13, Creatinine 0.77, Estimated GFR (MDRD) Greater than 90, Glucose 127 H, Calcium 9.9, Total Bilirubin 2.0 H, AST 59 H, ALT 27, Alkaline Phosphatase 100, Serum Total Protein 5.8, Albumin 3.1 L, Globulin 2.7, Albumin/Globulin Ratio 1.1 L 07/10/20 11:00: Flow Cytometry Interp 07/09/20 18:31: Urine KIRBY Interpret Note: A/P - Problem (1) Myeloma Current Visit: Yes Code(s): C90.00 - MULTIPLE MYELOMA NOT HAVING ACHIEVED REMISSION Status: Acute - Plan Plan: Start Velcade + Dexamethasone once weekly for myeloma, repeat myeloma labs for baseline Reviewed AEs with pt and daughter fu outpatient with Dr. Rdz Will follow
--- NOTE | 2020-07-14 18:49 | PRG ---
DATE OF SERVICE: 07/14/2020 SUBJECTIVE: Patient was seen and examined at bedside and overnight events noted. Patient denies any shortness of breath or chest pain or palpitation. No history of nausea or vomiting or diarrhea or fever or chills or cramps. OBJECTIVE: GENERAL: This is a well-built male, in no apparent distress. VITAL SIGNS: Temperature 97. Heart rate 80. Respiratory rate 20. Blood pressure 108/64. HEENT: Atraumatic, normocephalic. Oral mucosa is moist NECK: Supple. CARDIOVASCULAR: S1, S2 heard. Rate and rhythm regular. RESPIRATORY: Clear to auscultation. GASTROINTESTINAL: Abdomen is soft. MUSCULOSKELETAL: No tenderness. No edema. DERMATOLOGIC: No skin rash. NEUROLOGIC: Alert and awake and oriented X3. No focal neurologic deficits. Moving all the extremities. PSYCHIATRIC: Mood and affect normal. LABORATORY DATA: Potassium 3.4, BUN creatinine is 0.7. ASSESSMENT AND PLAN: 1. Acute kidney injury on chronic kidney disease, stage stable. 2. Edema. 3. Multiple myeloma. 4. Hypokalemia. 5. Proteinuria. Labs are much better. We will monitor. Replace potassium. We will follow. Job ID: [id number]
[2020-07-15 05:37] LABS: Hemoglobin 8.2 g/dL (14.0-18.0); Platelet Count 170 thou/uL (130-400)
[2020-07-15 05:39] LABS: INR-International Normal Ratio 1.5; Prothrombin Time 18.3 sec (12.0-14.7)
[2020-07-15 05:40] LABS: PTT 41.8 sec (22.9-36.1)
[2020-07-15 05:57] LABS: ALT (SGPT) 26 U/L (8-55); AST (SGOT) 53 U/L (5-34); Albumin 2.8 g/dL (3.4-4.8); Alkaline Phosphatase 92 U/L (40-110); Anion Gap 9 mmol/L (10-20); BUN (Urea Nitrogen) 12 mg/dL (8.4-25.7); Bilirubin, Direct 1.2 mg/dL (0.1-0.3); Bilirubin, Total 1.6 mg/dL (0.2-1.2); Calc. Creatinine Clearance 168 mL/min (70-130); Calcium 9.6 mg/dL (7.8-10.44); Carbon Dioxide 31 mmol/L (23-31); Chloride 100 mmol/L (98-107); Globulin 2.4 g/dL (2.4-3.5); Glucose 107 mg/dL (83-110); Potassium 3.2 mmol/L (3.5-5.1); Protein, Total 5.2 g/dL (5.8-8.1); Sodium 137 mmol/L (136-145)
--- NOTE | 2020-07-15 06:10 | PDOC.FM ---
- Subjective Subjective: Pt is doing well today. He has no complaints. He slept overnight. He was seen by Dr. Cyr yesterday who discussed treatment, prognosis with pt and daughter. They agreed to treatment and will follow up in clinic next week. - Objective Vital Signs & Weight: Vital Signs (12 hours) Temp Pulse Resp BP Pulse Ox 07/15/20 04:00 96.4 F L 72 20 111/66 100 07/15/20 00:25 97.9 F 90 20 99/65 100 07/14/20 20:00 98.0 F 85 22 H 106/61 100 Weight Admit Weight 115.984 kg Weight 119.249 kg Most Recent Monitor Data Heart Rate from ECG 72 NIBP 102/66 Respiration from ECG 30 I&O: 07/13/20 07/14/20 07/15/20 06:59 06:59 06:59 Intake Total 630 840 750 Output Total 200 3600 4100 Balance 430 -8750 -3350 Result Diagrams: 07/15/20 05:13 07/15/20 05:13 EKG Reviewed by me: Yes (atrial fibrillation rate controlled) Phys Exam - Physical Examination Constitutional: NAD HEENT: PERRLA, sclera anicteric Neck: full ROM Respiratory: no wheezing, clear to auscultation bilateral irreg rhythem, reg rate Gastrointestinal: soft, non-tender 1+ pitting edema Neurological: non-focal, moves all 4 limbs Psychiatric: normal affect, A&O x 3 Dx/Plan - Plan Plan: CHF exacerbation, improving A- Stable but still overloaded. HFrEF: echo in 2016 showed EF 30-40% with mitral/aortic/tricuspid valve regurg and LA dilatation. BNP ~2500 on admission. Concern for medication non compliance generally. P- Sanchez with strict I&O, daily weight, 1500mL fluid restriction - IV lasix 80mg bid, changed to 40 mg BID due to worsening renal function. - hold home coreg as unable to tell if he had been taking this at home, will confirm he is not on ACEi/ARB once mental status improves. Consider adding if BP improves. - Repeat echo ordered. EF 40-50%, severely dilated LA, increased pulm artery pressures ~50 mmHG. - Cardiology consulted due to abnormal echo and worsening renal function with diuresis. continue lasix and dobutamine ggt per Dr. Botello. Pt was off of dobutamine ggt on 07/08. Dr. Chapman to see pt today and will clarify if dobtamine ggt is desired by him. No further recommendations from cardiology hav ebeen placed. - CHF exacerbation improved clinically since 07/12. Continues to show improvement, transition to Po lasix 40 mg BID on 07/12. - Started low dose lisinopril. Will start coreg low dose. Pulmonary Hypertension - could consider continuing oxygen NC - continue diuresis Free Light Chain Multiple Myeloma - Oncology consulted, appreciate recs - Bone marrow biopsy 07/10 confirmed diagnosis, 24 hr urine electrophoresis and light chain assay showed M spike - Follow up outpt with oncology. Onc discussed treatment, prognosis on 07/14. Will require placement for rehab. CM consulted. Macrocytic anemia, with symptomatic anemia, improved - Hb 7.5, Hct 24, MCV 117. Similar to previous admissions - B12, folate nml in Oct - Monitor with am CBC. Transfuse if Hb <8 due to cardiac hx. - heme/onc consulted - repeat hemagram 8.1/26.4 on 07/12. 8.2/26.3 on 07/13. Coagulopathy, improved A- INR 6.5. Cause unknown. At last admission INR was 3.9 and home xarelto was held on admission and discharge. He had partial malignancy workup at that admission including negative bone scan. Bone biopsy not performed 2/2 coagulopathy. He had plans for f/u with Dr. Rdz however unknown if he followed up P- consult heme/onc, appreciate recommendations. Bone Marrow Biopsy on 07/10. Palliative care to see pt this morning to discuss treatment goals as pt has voiced thought of not pursuing treatment of MM. - SCDs for DVT ppx - discontinue home xarelto - INR 07/10 2.0, 1.6 on 07/12. 1.5 on 07/13 Hypokalemia A- K 2.6. Mg 1.7. replace and trend. AM mag added 07/13. P- On tele - added 20 mEq once daily. - repeat BMP with K 3.2, given 40 meq. NSTEMI type 2, improved - Trop 0.364 -> 0.25, higher than on previous admissions. Suspect NSTEMI type 2 2/2 CHF - pt coagulopathic with INR of 6.5, holding heparin at this time. - Trop down trended 0.167 on 07/09. No chest pain. KAYLEY, improved A- Likely cardiorenal syndrome vs MM causing KAYLEY. Cr 2.54 -> 2.4-> 2.59-> 2.03-> 1.08-> 0.80. baseline ~1.10 P- Monitor with am CMP and adjust meds as necessary - lasix decreased to 40 BID IV, cardiology and nephrology consulted for recs on diuresis in setting of KAYLEY. - Renal US ordered: no obstruction or abnormalities. - Nephrology consulted, appreciate recommendations Chronic venous insufficiency - Chronic skin changes. New blisters - Wound care consulted - Elevate legs. Recommend stockings outpt AFib - Hx of AFib, aware and present on echo this admission. - Rate-controlled in ED - On tele - Continue home coreg once BP improves and CHF exacerbation improved. - not candidate for anticoagulation other than ASA 81 mg daily due to coagulopathy. Cardiorenal syndrome, improved A- improving. BPs normal while on 2.5 of dobutamin gtt. He has hx of HTN but soft pressures since arrival. dobutamine ggt d/c'd on 07/08 afternoon. P- Cardiology and Nephrology consulted for recs. - Cr 2.59 GFR 24, worsened with diuresis. good urine output last 24 hrs and Cr 2.03. continued good urine output last 48 hrs with most recent cr 0.77 - daily BMP Chronic conditions HTN: see above HLD: continue home meds BPH: continue home meds Code: DNAR PCP: [facility] dispo: inpatient, >48 hr anticipated pending placement decision and jang tart treatment for MM with onc outpt. Addendum - Attending - Attending Attestation Date/Time: 07/15/20 1001 I personally evaluated the patient and discussed the management with Dr. Griffith. I agree with the History, Examination, Assessment and Plan documented above with any addition or exceptions noted below. Quite weak. Denies cp/sob/n/v/f/c. Continue diuresis Started chemotx Await placement Increase K replacement.
[2020-07-15] MEDS: Aspirin Chewable 81 MG TAB PO SCH (09:19)
[2020-07-15] MEDS: Famotidine 20 MG TAB PO SCH (09:20)
[2020-07-15] MEDS: Tamsulosin HCl 0.4 MG CAP PO SCH (09:20)
[2020-07-15] MEDS: Atorvastatin Calcium 40 MG TAB PO SCH (09:21)
[2020-07-15] MEDS: Finasteride 5 MG TAB PO SCH (09:22)
[2020-07-15] MEDS: Fenofibrate Nanocrystallized 145 MG TAB PO SCH (09:22)
[2020-07-15] MEDS: valACYclovir 500 MG TAB PO SCH (09:23)
[2020-07-15] MEDS: Potassium Chloride 20 MEQ TAB PO SCH ×2 (09:27)
[2020-07-15] MEDS: Carvedilol 3.125 MG TAB PO SCH ×2 (10:12→17:12)
[2020-07-15] MEDS: Lisinopril 2.5 MG TAB PO SCH (10:13)
[2020-07-15] MEDS: Furosemide 40 MG TAB PO SCH (10:14)
--- NOTE | 2020-07-15 15:18 | PRG ---
DATE OF SERVICE: 07/15/2020 SUBJECTIVE: Patient was seen and examined at bedside and overnight events noted. Patient denies any shortness of breath or chest pain or palpitation. No history of nausea or vomiting or diarrhea or fever or chills or cramps. OBJECTIVE: GENERAL: This is a well-built male, in no apparent distress. VITAL SIGNS: Temperature 98.4. Heart rate 74. Respiratory rate 20. Blood pressure 110/59. HEENT: Atraumatic, normocephalic. Oral mucosa is moist. NECK: Supple. CARDIOVASCULAR: S1, S2 heard. Rate and rhythm regular. RESPIRATORY: Clear to auscultation. GASTROINTESTINAL: Abdomen is soft. MUSCULOSKELETAL: No tenderness. No edema. DERMATOLOGIC: No skin rash. NEUROLOGIC: Alert and awake and oriented x3. No focal neurologic deficits. Moving all the extremities. PSYCHIATRIC: Mood and affect normal. LABORATORY DATA: Potassium 3.2, BUN is 12, and creatinine is . ASSESSMENT AND PLAN: 1. Acute kidney injury on chronic kidney disease, stage 2. Renal function much better, had good urine output. We will reduce the diuretic dose. given the plans for chemotherapy. 2. Edema. 3. Multiple myeloma. Follow with Hem/Onc. 4. Hypokalemia. 5. Proteinuria. Reduce diuretic dose and monitor cardiorespiratory status. We will follow. Job ID: [id number]
[2020-07-15] MEDS: Acetaminophen 325 MG TAB PO PRN (16:38)
[2020-07-16 05:39] LABS: Platelet Count 167 thou/uL (130-400)
[2020-07-16 05:46] LABS: PTT 41.1 sec (22.9-36.1)
[2020-07-16 05:47] LABS: INR-International Normal Ratio 1.4; Prothrombin Time 17.5 sec (12.0-14.7)
[2020-07-16] MEDS ORDERED: BORTEZOMIB IVP SCH (06:00)
[2020-07-16] MEDS ORDERED: SODIUM CHLORIDE 0.9% IVP SCH (06:00)
[2020-07-16] MEDS ORDERED: Dexamethasone 20 MG in Sodium Chloride 0.9% 50 ML IVPB SCH (06:00)
[2020-07-16 06:10] LABS: ALT (SGPT) 24 U/L (8-55); AST (SGOT) 47 U/L (5-34); Albumin 2.8 g/dL (3.4-4.8); Alkaline Phosphatase 88 U/L (40-110); Anion Gap 12 mmol/L (10-20); BUN (Urea Nitrogen) 14 mg/dL (8.4-25.7); Bilirubin, Total 1.5 mg/dL (0.2-1.2); Calc. Creatinine Clearance 128 mL/min (70-130); Calcium 9.5 mg/dL (7.8-10.44); Carbon Dioxide 27 mmol/L (23-31); Chloride 101 mmol/L (98-107); Globulin 2.4 g/dL (2.4-3.5); Glucose 102 mg/dL (83-110); Potassium 3.3 mmol/L (3.5-5.1); Protein, Total 5.2 g/dL (5.8-8.1); Sodium 137 mmol/L (136-145)
--- NOTE | 2020-07-16 06:13 | PDOC.FM ---
- Subjective Subjective: Doing well this morning. States his shortness of breath has improved, however today he is complaining of R LE tenderness. He is not ambulating often or independently. - Objective MAR Reviewed: Yes Vital Signs & Weight: Vital Signs (12 hours) Temp Pulse Resp BP Pulse Ox 07/16/20 04:47 99/59 L 07/16/20 04:13 97.9 F 74 21 H 87/57 L 94 L 07/15/20 23:34 99.2 F 68 17 87/51 L 98 07/15/20 20:55 97.5 F L 81 23 H 100/58 L 94 L Weight Admit Weight 115.984 kg Weight 96.026 kg Most Recent Monitor Data Heart Rate from ECG 72 NIBP 102/66 Respiration from ECG 30 I&O: 07/14/20 07/15/20 07/16/20 06:59 06:59 06:59 Intake Total 840 750 960 Output Total 3600 4100 1950 Balance -8170 -9210 -990 Result Diagrams: 07/16/20 04:57 07/16/20 04:57 Phys Exam - Physical Examination Constitutional: NAD HEENT: PERRLA, moist MMs Neck: no nodes, no JVD Respiratory: no wheezing, no rhonchi, clear to auscultation bilateral Mild crackles Cardiovascular: no significant murmur Irregularly irregular. Gastrointestinal: soft, non-tender Musculoskeletal: edema present Neurological: moves all 4 limbs Psychiatric: normal affect Skin: no rash, normal turgor Dx/Plan (1) Coagulopathy Status: Acute (2) Myeloma Code(s): C90.00 - MULTIPLE MYELOMA NOT HAVING ACHIEVED REMISSION Status: Acute (3) Symptomatic anemia Code(s): D64.9 - ANEMIA, UNSPECIFIED Status: Acute (4) Afib Code(s): I48.91 - UNSPECIFIED ATRIAL FIBRILLATION Status: Chronic Qualifiers: Atrial fibrillation type: paroxysmal Qualified Code(s): I48.0 - Paroxysmal atrial fibrillation (5) Obesity (BMI 30-39.9) Code(s): E66.9 - OBESITY, UNSPECIFIED Status: Chronic (6) Hypokalemia Code(s): E87.6 - HYPOKALEMIA Status: Acute - Plan Plan: HFrEF exacerbation, improving - HFrEF: EF 40-50%, severely dilated LA, increased pulm artery pressures ~50 mmHG. - Sanchez with strict I&O, daily weight, 1500mL fluid restriction - PO Lasix 40 mg daily. - Coreg 3.125mg BID initiated 07/15. Will monitor pressures/pulse. - Lisinopril 2.5mg daily - Cardiology and nephrology consulted, appreciate recommendations. RLE tenderness: - US ordered to r/o DVT. - Wells score of 4-5 Pulmonary Hypertension - could consider continuing oxygen NC - continue diuresis Free Light Chain Multiple Myeloma - Oncology consulted, appreciate recs - Bone marrow biopsy 07/10 confirmed diagnosis, 24 hr urine electrophoresis and light chain assay showed M spike - Follow up outpt with oncology. Onc discussed treatment, prognosis on 07/14. Will require placement for rehab. CM consulted. Macrocytic anemia, with symptomatic anemia, improved - Hb ~ 8. Will transfuse if <8. Coagulopathy, improved - Heme/Onc consulted, appreciate recommendations. Hypokalemia - On 40meq daily. Continue to monitor. NSTEMI type 2, resolved. - Trop down trended 0.167 on 07/09. No chest pain. KAYLEY, resolved - Renal US ordered: no obstruction or abnormalities. - Nephrology consulted, appreciate recommendations Chronic venous insufficiency - Wound care consulted AFib - Hx of AFib, aware and present on echo this admission. - on coreg, rate controlled. - coagulopathic, however at significant risk for VTE due to malignancy and venous stasis. Will resume home xarelto. Cardiorenal syndrome, improved - Cardiology and Nephrology consulted, appreciate recommendations. - Was on dobutamine gtt. Improved. HTN: currently low/normotensive. On minimum dose of lisinopril and beta-diego for CHF. HLD: continue home meds BPH: continue home meds Code: DNAR PCP: [facility] DISPO: Awaiting placement from case management. Addendum - Attending - Attending Attestation Date/Time: 07/16/20 1058 I personally evaluated the patient and discussed the management with Dr. Trejo. I agree with the History, Examination, Assessment and Plan documented above with any addition or exceptions noted below.
[2020-07-16] MEDS ORDERED: Enoxaparin Sodium 40 MG/0.4 ML SYRINGE SC SCH (09:00)
[2020-07-16] MEDS: Aspirin Chewable 81 MG TAB PO SCH (09:05)
[2020-07-16] MEDS: valACYclovir 500 MG TAB PO SCH (09:06)
[2020-07-16] MEDS: Potassium Chloride 20 MEQ TAB PO SCH (09:06)
[2020-07-16] MEDS: Lisinopril 2.5 MG TAB PO SCH (09:07)
[2020-07-16] MEDS: Tamsulosin HCl 0.4 MG CAP PO SCH (09:07)
[2020-07-16] MEDS: Fenofibrate Nanocrystallized 145 MG TAB PO SCH (09:07)
[2020-07-16] MEDS: Carvedilol 3.125 MG TAB PO SCH ×2 (09:07→17:34)
[2020-07-16] MEDS: Finasteride 5 MG TAB PO SCH (09:07)
[2020-07-16] MEDS: Atorvastatin Calcium 40 MG TAB PO SCH (09:07)
[2020-07-16] MEDS: Famotidine 20 MG TAB PO SCH (09:08)
[2020-07-16] MEDS: Furosemide 40 MG TAB PO SCH (09:08)
[2020-07-16] MEDS ORDERED: Rivaroxaban 10 MG TAB PO SCH (10:00)
--- NOTE | 2020-07-16 10:29 | ULT ---
Exam:Rightlower extremity venous ultrasound with Doppler HISTORY: Rightlower extremity swelling COMPARISON: 05/07/2012 TECHNIQUE: Grayscale, color flow, Doppler imaging and spectral wave muscle performed right lower extr emity venous system FINDINGS: There is compressibility, presence of flow and augmentation in the common femoral vein, femoral vein and popliteal vein. There is flow in the posterior tibial vein. There is flow in the greater saphenous vein and profunda femoral vein IMPRESSION: No thrombus in the right lower extremity deep venous system.
[2020-07-16 10:37] LABS: Kappa Lambda Light Chain Ratio 324.27 (0.26-1.65); Kappa Light Chains 1815.9 mg/L (3.3-19.4); Lambda Light Chain 5.6 mg/L (5.7-26.3)
[2020-07-16] MEDS ORDERED: Dexamethasone Sod Phosphate 20 MG in Sodium Chloride 0.9% 50 ML IVPB SCH (11:00)
[2020-07-16] MEDS ORDERED: valACYclovir 500 MG TAB PO SCH (11:00)
[2020-07-16] MEDS ORDERED: BORTEZOMIB SC SCH (11:15)
[2020-07-16] MEDS ORDERED: ADMIXTURE FEE SC SCH (11:15)
[2020-07-16] MEDS ORDERED: Dexamethasone 4 MG TAB PO SCH (14:30)
[2020-07-16 14:54] VITALS: BMI 30.4
[2020-07-16 15:14] LABS: A/G Ratio 1.1 (0.7-1.7); Albumin 2.5 g/dL (2.9-4.4); Alpha 1 0.4 g/dL (0.0-0.4); Alpha 2 0.5 g/dL (0.4-1.0); Beta 0.9 g/dL (0.7-1.3); Gamma 0.4 g/dL (0.4-1.8); Globulin, Total 2.3 g/dL (2.2-3.9); M-Spike Not Observed g/dL (Not Observed)
--- NOTE | 2020-07-16 19:00 | PRG ---
DATE OF SERVICE: SUBJECTIVE: A 70-year-old gentleman being seen for acute kidney injury. The patient denied nausea, vomiting, or chest pain. PHYSICAL EXAMINATION: GENERAL: The patient is awake and alert. VITAL SIGNS: Afebrile, pulse 75, breathing at 16, blood pressure 97/61. HEENT: Head normocephalic and atraumatic. Eyes intact, no ulcers. Nose intact, no ulcers. Ears intact, no ulcers. Neck: Supple. No JVD. Chest: Symmetrical and clear. Cardiovascular: Shows S1 and S2, no rub, no murmur. Gastrointestinal: Abdomen is soft, bowel sounds positive. Extremities: Show no edema or ulcers. Skin: Shows no rash or petechiae. Musculoskeletal: Shows no joint swelling or stiffness. Genitourinary: Shows no Sanchez or CVA tenderness. Neurologic: Motor intact. Cranial nerves intact. General: Physical exam. LABS: Reviewed. ASSESSMENT AND PLAN: 1. Chronic kidney disease, stage 2, stable. 2. Hypertension, stable. 3. Anemia, stable. 4. Medication based on GFR appropriate. No indication for dialysis. 5. Edema. Can use diuretic based on labs. I will sign off on this patient. Please reconsult as needed. Job ID: [id number]
[2020-07-17 05:09] LABS: Hemoglobin 8.7 g/dL (14.0-18.0); Platelet Count 180 thou/uL (130-400)
[2020-07-17 05:12] LABS: INR-International Normal Ratio 2.8; PTT 48.9 sec (22.9-36.1); Prothrombin Time 30.5 sec (12.0-14.7)
[2020-07-17 05:37] LABS: ALT (SGPT) 23 U/L (8-55); AST (SGOT) 37 U/L (5-34); Albumin 2.9 g/dL (3.4-4.8); Alkaline Phosphatase 95 U/L (40-110); Anion Gap 12 mmol/L (10-20); BUN (Urea Nitrogen) 15 mg/dL (8.4-25.7); Bilirubin, Total 1.3 mg/dL (0.2-1.2); Calc. Creatinine Clearance 130 mL/min (70-130); Calcium 9.6 mg/dL (7.8-10.44); Carbon Dioxide 26 mmol/L (23-31); Chloride 101 mmol/L (98-107); Globulin 2.5 g/dL (2.4-3.5); Glucose 165 mg/dL (83-110); Potassium 3.7 mmol/L (3.5-5.1); Protein, Total 5.4 g/dL (5.8-8.1); Sodium 135 mmol/L (136-145)
--- NOTE | 2020-07-17 06:46 | PDOC.FM ---
- Subjective Subjective: Pleasant and comfortable this morning. - Objective MAR Reviewed: Yes Vital Signs & Weight: Vital Signs (12 hours) Temp Pulse Resp BP Pulse Ox 07/17/20 03:50 98.0 F 70 20 119/72 97 07/17/20 00:40 98.0 F 68 24 H 112/64 97 07/16/20 20:00 65 18 108/66 96 Weight Admit Weight 115.984 kg Weight 93.621 kg Most Recent Monitor Data Heart Rate from ECG 72 NIBP 102/66 Respiration from ECG 30 I&O: 07/15/20 07/16/20 07/17/20 06:59 06:59 06:59 Intake Total 750 960 360 Output Total 4100 1950 2004 Balance -6746 -772 -5352 Result Diagrams: 07/17/20 04:34 07/17/20 04:34 Phys Exam - Physical Examination Constitutional: NAD HEENT: PERRLA, moist MMs Neck: no nodes, no JVD Respiratory: no wheezing, no rales, no rhonchi, clear to auscultation bilateral Cardiovascular: no significant murmur, no rub Irregularly irregular Gastrointestinal: soft, non-tender Musculoskeletal: pulses present Trace edema Neurological: non-focal, normal sensation, moves all 4 limbs Psychiatric: normal affect, A&O x 3 Skin: no rash, normal turgor Deviation from normal: Venous stasis ulcers bilateral LE Dx/Plan (1) Coagulopathy Status: Acute (2) Myeloma Code(s): C90.00 - MULTIPLE MYELOMA NOT HAVING ACHIEVED REMISSION Status: Acute (3) Symptomatic anemia Code(s): D64.9 - ANEMIA, UNSPECIFIED Status: Acute (4) Afib Code(s): I48.91 - UNSPECIFIED ATRIAL FIBRILLATION Status: Chronic Qualifiers: Atrial fibrillation type: paroxysmal Qualified Code(s): I48.0 - Paroxysmal atrial fibrillation (5) Obesity (BMI 30-39.9) Code(s): E66.9 - OBESITY, UNSPECIFIED Status: Chronic (6) Hypokalemia Code(s): E87.6 - HYPOKALEMIA Status: Acute - Plan Plan: HFrEF exacerbation, improving - HFrEF: EF 40-50%, severely dilated LA, increased pulm artery pressures ~50 mmH G. - Sanchez with strict I&O, daily weight, 1500mL fluid restriction - PO Lasix 40 mg daily. - Coreg 3.125mg BID initiated 07/15. Will monitor pressures/pulse. - Lisinopril 2.5mg daily - Cardiology and nephrology consulted, appreciate recommendations. Nephro signed off 07/16. RLE tenderness: - No evidence of DVT on LE US. Pulmonary Hypertension - could consider continuing oxygen NC - continue diuresis Free Light Chain Multiple Myeloma - Oncology consulted, appreciate recs - Bone marrow biopsy 07/10 confirmed diagnosis, 24 hr urine electrophoresis and light chain assay showed M spike - Follow up outpt with oncology. Onc discussed treatment, prognosis on 07/14. Will require placement in SNF vs rehab. CM consulted. Macrocytic anemia, with symptomatic anemia, improved - Hb ~ 8. Will transfuse if <8. Coagulopathy, improved - Heme/Onc consulted, appreciate recommendations. Hypokalemia - On 40meq daily. Continue to monitor. NSTEMI type 2, resolved. - Trop down trended 0.167 on 07/09. No chest pain. KAYLEY, resolved - Renal US ordered: no obstruction or abnormalities. - Nephrology consulted, signed off. Chronic venous insufficiency - Wound care consulted AFib - Hx of AFib, aware and present on echo this admission. - on coreg, rate controlled. - coagulopathic, however at significant risk for VTE due to malignancy and venous stasis. Will resume home xarelto. Cardiorenal syndrome, improved - Was on dobutamine gtt. Improved. HTN: currently low/normotensive. On minimum dose of lisinopril and beta-diego for CHF. HLD: continue home meds BPH: continue home meds Code: DNAR PCP: [facility] DISPO: Awaiting placement from case management. Addendum - Attending - Attending Attestation Date/Time: 07/17/20 1050 I personally evaluated the patient and discussed the management with Dr. Trejo. I agree with the History, Examination, Assessment and Plan documented above with any addition or exceptions noted below. Patient overall improved, feeling well this morning. Off O2 and normal O2 sats. Continue to diurese. He started induction chemo last night, tolerated well overall. Oncology on board. Working on placement.
[2020-07-17] MEDS ORDERED: Rivaroxaban 10 MG TAB PO SCH (09:00)
[2020-07-17] MEDS: Carvedilol 3.125 MG TAB PO SCH ×2 (09:42→16:30)
[2020-07-17] MEDS: Aspirin Chewable 81 MG TAB PO SCH (09:42)
[2020-07-17] MEDS: Potassium Chloride 20 MEQ TAB PO SCH (09:42)
[2020-07-17] MEDS: Fenofibrate Nanocrystallized 145 MG TAB PO SCH (09:42)
[2020-07-17] MEDS: Famotidine 20 MG TAB PO SCH (09:42)
[2020-07-17] MEDS: Finasteride 5 MG TAB PO SCH (09:43)
[2020-07-17] MEDS: Atorvastatin Calcium 40 MG TAB PO SCH (09:43)
[2020-07-17] MEDS: Tamsulosin HCl 0.4 MG CAP PO SCH (09:43)
[2020-07-17] MEDS: Furosemide 40 MG TAB PO SCH (09:43)
[2020-07-17] MEDS: valACYclovir 500 MG TAB PO SCH (09:45)
[2020-07-17] MEDS: Lisinopril 2.5 MG TAB PO SCH (09:45)
[2020-07-17 15:58] VITALS: BP 108/58; TEMP 97.8
--- NOTE | 2020-07-18 15:42 | DIS ---
DATE OF ADMISSION: 07/07/2020 DATE OF DISCHARGE: 07/17/2020 DISCHARGE ATTENDING: Des Gilman MD RESIDENT: Shilpa Trejo MD CONSULTATIONS: 1. Cardiology, Dr. Botello. 2. Nephrology, Dr. Coates. 3. Oncology, Dr. Gilliland. 4. Physical Therapy, Occupational Therapy, and Heart Failure Clinic. PROCEDURES: 1. Echocardiogram which revealed an ejection fraction of 40% to 50%, atrial fibrillation, left atrial dilation, mild mitral regurgitation, elevated pulmonary artery systolic pressure. 2. Bone marrow biopsy. PRIMARY DIAGNOSIS: Heart failure with reduced ejection fraction exacerbation. SECONDARY DIAGNOSES: Hypokalemia, indeterminate troponin, acute kidney injury on chronic kidney disease, hypertension, coagulopathy, chronic venous insufficiency, atrial fibrillation, macrocytic anemia, hypertension, hyperlipidemia, and BPH. DISCHARGE MEDICATIONS: 1. Aspirin 81 mg daily. 2. Atorvastatin 20 mg daily. 3. Carvedilol 3.125 mg b.i.d. 4. Claritin 10 mg daily. 5. Pepcid 20 mg daily. 6. Fenofibric acid 135 mg daily. 7. Finasteride 5 mg daily. 8. Lasix 40 mg daily. 9. MiraLAX 17 g daily. 10. Multivitamin daily. 11. Nitroglycerin 0.4 mg as needed q.15 minutes. 12. Praluent 75 mg subcu q.14 days. 13. Flomax 0.4 mg daily. 14. Xarelto 20 mg daily. 15. Dexamethasone 20 mg q.7 days with chemo. 16. Potassium chloride 40 mEq daily. 17. Valtrex 500 mg daily. 18. Velcade as directed. 19. Lisinopril 2.5 mg daily. DISCONTINUED MEDICATIONS: None. HISTORY OF PRESENT ILLNESS AND HOSPITAL COURSE: Mr. Ramon is a 70-year-old male, who presented with his [id number] after 3 days of worsening shortness of breath and increasing lower extremity edema. He got some of his fluid pills prior to admission. On admission, he was found to have a BNP of nearly 2500 and he was hypoxic into the mid 80s, requiring 3 L of oxygen via nasal cannula. He had new wounds and sores on his lower extremities as well. He was admitted to the hospital for an acute exacerbation of chronic heart failure with reduced ejection fraction. A repeat echo was ordered, which showed an EF of 40% to 50%. Cardiology was consulted for further management. Dr. Botello recommended continued diuresis with Lasix. Oncology was consulted for management of diagnosis of free light chain multiple myeloma that had been diagnosed on his prior admission. They proceeded with a bone marrow biopsy to confirm the diagnosis. The biopsy revealed plasma cell myeloma. Over the course of his hospitalization, he required significant diuresis of excess fluid. At point in time during his admission, he was on dobutamine drip to assist with the diuresis as well. He was able to be weaned off the dobutamine drip prior to discharge and back on his home dose of Lasix. He was agreeable to being discharged to a residential facility in order to continue physical therapy, occupational therapy, and continue his chemo treatment for the myeloma. He was discharged on his home medications with the addition of chemotherapy. DISPOSITION: Guarded. DISCHARGE INSTRUCTIONS: 1. Location: residential facility. 2. Diet: Heart healthy. 3. Activity: Ad kee. 4. Follow up with primary care physician after discharge. Job ID: [id number] [facility]
== END 2020-07-17 17:45 | disposition swing bed (61) | DRG 280 ==
LOC: ERS 18:46 → 2SE 23:49
PROVIDERS: ADMIT Family Medicine; ATTEND Family Medicine
PROC: 30233N1 Transfusion of Nonautologous Red Blood Cells into Peripheral Vein, Percutaneous Approach (ICD-10-PCS; principal; 2020-07-09)
PROC: 07DR3ZX Extraction of Iliac Bone Marrow, Percutaneous Approach, Diagnostic (ICD-10-PCS; 2020-07-10)
DX: I13.0 Hypertensive heart and chronic kidney disease with heart failure and stage 1 through stage 4 chronic kidney disease, or unspecified chronic kidney disease (principal); I21.A1 Myocardial infarction type 2; R57.0 Cardiogenic shock; J96.01 Acute respiratory failure with hypoxia; I50.43 Acute on chronic combined systolic (congestive) and diastolic (congestive) heart failure; J96.02 Acute respiratory failure with hypercapnia; N17.9 Acute kidney failure, unspecified; D68.9 Coagulation defect, unspecified; C90.00 Multiple myeloma not having achieved remission; E87.0 Hyperosmolality and hypernatremia; E87.3 Alkalosis; L03.115 Cellulitis of right lower limb; L03.116 Cellulitis of left lower limb; Z20.822 Contact with and (suspected) exposure to COVID-19; Z66 Do not resuscitate; Z51.5 Encounter for palliative care; I48.0 Paroxysmal atrial fibrillation; E87.6 Hypokalemia; N40.0 Benign prostatic hyperplasia without lower urinary tract symptoms; I87.2 Venous insufficiency (chronic) (peripheral); I27.20 Pulmonary hypertension, unspecified; N18.30 Chronic kidney disease, stage 3 unspecified; I95.9 Hypotension, unspecified; D63.1 Anemia in chronic kidney disease; I08.3 Combined rheumatic disorders of mitral, aortic and tricuspid valves; E66.01 Morbid (severe) obesity due to excess calories; E11.22 Type 2 diabetes mellitus with diabetic chronic kidney disease; I25.10 Atherosclerotic heart disease of native coronary artery without angina pectoris; E78.00 Pure hypercholesterolemia, unspecified; E88.09 Other disorders of plasma-protein metabolism, not elsewhere classified; Z79.82 Long term (current) use of aspirin; Z79.899 Other long term (current) drug therapy; Z79.4 Long term (current) use of insulin; Z79.01 Long term (current) use of anticoagulants; Z68.29 Body mass index [BMI] 29.0-29.9, adult
CPT/HCPCS: 20225; 36415; 36430; 71045; 76770; 77012; 80048; 80053; 80074; 81003; 81015; 82248; 82553; 82570; 83605; 83735; 83880; 83883; 84100; 84156; 84165; 84166; 84484; 85014; 85018; 85025; 85049; 85060; 85097; 85610; 85730; 86335; 86850; 86900; 86901; 87040; 87086; 87635; 88184; 88185; 88237; 88264; 88280; 88305; 88311; 88313; 93005; 93306; 93798; 96365; 96375; 96376; J1250; J1940; J3010; J3480; J7050; J8540; J9041; P9016; U0003; U0005

== ENCOUNTER 2020-08-14 08:50 | Outpatient (CLI) | payer MEDICARE, OTHER ==
--- NOTE | 2020-08-14 13:33 | PET ---
Nuclear medicine FDG PET/CT whole body: (Positron emission tomography and computed tomography) DATE: 08/14/2020 HISTORY: 70-year-old male with multiple myeloma, not having achieved remission. Initial staging. C90.00 COMPARISON: none TECHNIQUE: IV injection of F-18 fluorodeoxyglucose (FDG) dose: 11.5 mCi. PET scan and attenuation correction CT performed from vertex of head to bottom of feet. FINDINGS: SUV (standard uptake values) numbers given are maximum SUVs. QCLR used. There is an approximately 7 x 4 x 3.5 cm heavily partially calcified left paratracheal mass which occ upies the expected location of the left lobe of the thyroid gland. No normal left thyroidal parenchymal tissue is visualized. This mass extends caudally into the upper mediastinum. It is very a vid, with SUV of 16.7. This was not recognized on the thyroid ultrasound 04/20/2020, at least in part because much of this m ass is located at the level of the clavicle and below. It probably has not significantly changed since the CT of 04/20/2020. A nonenlarged right lobe of the thyroid gland is visualized. There is a small right pleural effusion. There is cardiomegaly with four-chamber dilation. There is a small pericardial effusion. Atherosclerotic calcification of all major coronary arteries. Edema in the subcutaneous fat circumferentially around the abdominal cavity and pelvic cavity. No other hypermetabolic lesions in the rest of the neck, chest, abdomen, or pelvic cavities. Bilateral gynecomastia. There is diffusely increased uptake and patchy uptake involving superficial soft tissues and deep mus cles of bilateral legs distal to the knees. The same is true for the hands and forearms bilaterally. These probably represent a combination of inflammation and muscle contraction activity. There is diffuse osteopenia. No focal discrete obviously osteolytic skeletal lesion is identified that would be highly suspicious for multiple myeloma. However, there are numerous areas of increased FDG uptake without necessarily osteolytic lesions pres ent. Some examples: Generalized moderately increased uptake throughout the thoracic and lumbar spine and sacrum. For example T9 and T10 uptake approximately 3.0 SUV. T3 and T4 vertebral bodies approximately 3.2 SUV. Slightly sclerotic area at base of right coracoid process SUV 3.0. Similar area at left coracoid process SUV 2.9. Bilateral clavicular heads SUV approximately 2.5. Right ilium near SI joint SUV 3.1. Left ilium near SI joint SUV 2.7. Right sacral ala SUV 2.7. Left sacral ala SUV 2.6.. IMPRESSION: 1) 7 x 4 x 3.5 cm heavily calcified left paratracheal mass is highly FDG avid. Possibilities include benign and malignant left thyroid mass versus parathyroid carcinoma. Recommend correlation with serum PTH. This mass is probably amenable to CT-guided fine-needle aspiration biopsy. 2) although no discrete osteolytic lesion is identified that would be particularly suspicious for mul tiple myeloma, there are fairly symmetrical regions of mildly increased FDG uptake in the bony pelvis, almost the entire spine, and coracoid processes of bilateral scapulae. It is uncertain which of these, if any, represent multiple myeloma.
== END 2020-08-14 08:51 | disposition home or self-care (01) ==
LOC: PET 08:50
PROVIDERS: ATTEND Internal Medicine Hematology & Oncology
DX: C90.00 Multiple myeloma not having achieved remission (principal)
CPT/HCPCS: 78816; A9552

== ENCOUNTER 2023-01-17 22:16 | Inpatient (IN) | payer MEDICARE, OTHER ==
[2023-01-17 22:56] LABS: #Monocytes 0.8 thou/uL (0.11-0.59); #Neutrophils 3.1 thou/uL (1.40-6.50); %Basophils 0.4 % (0.0-1.0); %Eosinophils 0.9 % (0.0-10.0); %Lymphocytes 15.4 % (21.0-51.0); %Monocytes 16.3 % (0.0-10.0); %Neutrophils 66.3 % (42.0-75.0); Hemoglobin 9.4 g/dL (14.0-18.0); Mean Corpuscular HGB CONC 32.5 g/dL (32.0-36.0); Mean Corpuscular Hemoglobin 35.6 pg (27.0-31.0); Mean Corpuscular Volume 109.5 fl (78.0-98.0); Mean Platelet Volume 9.7 fL (7.4-10.4); Platelet Count 201 10x3/uL (130-400); RBC Distribution Width 17.1 % (11.5-14.5); Red Blood Cell (RBC) Count 2.64 mill/uL (4.70-6.10); White Blood Cell (WBC) Count 4.6 10x3/uL (4.8-10.8)
[2023-01-17 23:03] LABS: Actual Bicarbonate (HCO3v) 17.5 mEq/L (22-28); Analyzer IN Cardio ER; Base Excess -5.9 mEq/L (-2.0 to +3.0); Calcium, Ionized (venous) 1.44 mmol/L (1.16-1.32); Chloride (VBG) 106 mmol/L (98-106); Hematocrit-VBG 37 % (42.0-52.0); Hemoglobin (Hb) 12.5 g/dL (12.6-17.4); Potassium (VBG) 3.89 mmol/L (3.70-5.30); Sodium 133.1 mmol/L (133-146); pH (venous) 7.406 (7.32-7.43)
[2023-01-17 23:18] LABS: Acetaminophen Less than 10 mcg/mL (10.0-30.0); Alcohol Less than 10.0 mg/dL (Less than 10); INR-International Normal Ratio 3.4; Lipase 36 U/L (8-78); Magnesium 1.6 mg/dL (1.6-2.6); PTT 45.1 sec (22.9-36.1); Prothrombin Time 36.1 sec (12.0-14.7); Salicylate Less than 8.0 mg/dL (15.0-30.0)
[2023-01-17 23:25] LABS: ALT (SGPT) 11 U/L (8-55); AST (SGOT) 15 U/L (5-34); Albumin 3.5 g/dL (3.4-4.8); Alkaline Phosphatase 135 U/L (40-110); BUN (Urea Nitrogen) 27 mg/dL (8.4-25.7); Bilirubin, Total 1.1 mg/dL (0.2-1.2); CK (CPK) 65 U/L (30-200); Calc. Creatinine Clearance 0 mL/min (70-130); Calcium 10.8 mg/dL (7.8-10.44); Carbon Dioxide 18 mmol/L (23-31); Chloride 108 mmol/L (98-107); Estimated GFR 66; Globulin 1.9 g/dL (2.4-3.5); Glucose 109 mg/dL (83-110); Protein, Total 5.4 g/dL (5.8-8.1); Sodium 138 mmol/L (136-145)
[2023-01-17 23:35] LABS: Anion Gap 16 mmol/L (10-20)
[2023-01-17 23:42] LABS: CKMB 1.7 ng/mL (0-6.6)
[2023-01-18 00:17] LABS: Amphetamine Not Detected (NotDetected); Barbiturates Screen Not Detected (NotDetected); Benzodiazepine Screen Not Detected (NotDetected); Cocaine Metabolite Screen Not Detected (NotDetected); Methadone Not Detected (NotDetected); Methamphetamine Not Detected (NotDetected); Opiate Screen Not Detected (NotDetected); Oxycodone Screen Not Detected (NotDetected); Phencyclidine (PCP) Not Detected (NotDetected); THC/Cannabinoid Screen Not Detected (NotDetected); Tricyclic Screen Not Detected (NotDetected)
[2023-01-18 00:39] LABS: Bacteria/HPF None Seen HPF (None Seen); Bilirubin Negative (Negative); Blood, Urine Trace (Negative); CAUTI Indications for Culture Alt mental st,lethar; Clarity Turbid (Clear); Glucose, Urine (Dipstick) Normal (Negative); Ketone, Urine Trace mg/dL (Negative); Leukocyte 500 Leu/uL (Negative); Nitrite Negative (Negative); Protein, Urine (Dipstick) 30 mg/dL (Neg-Trace); RBC/HPF 0-3 HPF (0-3); Specific Gravity, Urine 1.021 (1.002-1.036); Squamous Epithelial 0-3 HPF (0-3); WBC/HPF Greater than 50 HPF (0-3); pH, Urine 5.5 (5.0-9.0)
[2023-01-18 00:44] LABS: Urine Culture Reflex Yes Yes
[2023-01-18] MEDS ORDERED: cefTRIAXone (ROCEPHIN) 2 GM VIAL ONE (01:25)
[2023-01-18 02:41] LABS: Lactic Acid 1.6 mmol/L (0.5-2.2)
[2023-01-18] MEDS ORDERED: Calcium Carbonate 500 MG ChewTAB PO PRN (04:10)
[2023-01-18] MEDS ORDERED: Ondansetron ODT 4 MG TAB PO PRN (04:10)
[2023-01-18] MEDS ORDERED: Senokot S 8.6-50 MG TAB PO PRN (04:10)
[2023-01-18 05:14] VITALS: BMI 30.9
[2023-01-18] MEDS: Famotidine 20 MG TAB PO SCH ×2 (08:19→20:18)
[2023-01-18] MEDS: Spironolactone 25 MG TAB PO SCH (08:20)
[2023-01-18] MEDS: Furosemide 20 MG TAB PO SCH (08:20)
[2023-01-18] MEDS: Famotidine/PF 20 mg/2ml Vial SLOW IVP SCH ×2 (08:20→20:18)
[2023-01-18] MEDS: Carvedilol 3.125 MG TAB PO SCH (08:21)
[2023-01-18] MEDS ORDERED: Non-Formulary Item 1 EACH (Rivaroxaban [Xarelto] 20 MG Tablet) PO SCH (09:00)
[2023-01-18] MEDS: Acetaminophen 325 MG TAB PO PRN (11:00)
[2023-01-18] MEDS: Tamsulosin HCl 0.4 MG CAP PO SCH (20:18)
[2023-01-19] MEDS: cefTRIAXone\\ROCEPHIN 1 GM in Sodium Chloride 0.9% 100 ML IVPB SCH (00:21)
[2023-01-19] MEDS: Acetaminophen 325 MG TAB PO PRN (00:30)
[2023-01-19 06:28] LABS: #Eosinphils 0.2 thou/uL (0.0-0.7); #Monocytes 0.6 thou/uL (0.11-0.59); #Neutrophils 2.3 thou/uL (1.40-6.50); %Basophils 0.5 % (0.0-1.0); %Eosinophils 3.8 % (0.0-10.0); %Lymphocytes 27.7 % (21.0-51.0); %Monocytes 13.5 % (0.0-10.0); Hemoglobin 8.7 g/dL (14.0-18.0); Mean Corpuscular HGB CONC 32.1 g/dL (32.0-36.0); Mean Corpuscular Hemoglobin 35.1 pg (27.0-31.0); Mean Corpuscular Volume 109.3 fl (78.0-98.0); Mean Platelet Volume 9.6 fL (7.4-10.4); Platelet Count 167 10x3/uL (130-400); RBC Distribution Width 17.4 % (11.5-14.5); Red Blood Cell (RBC) Count 2.48 mill/uL (4.70-6.10); White Blood Cell (WBC) Count 4.2 10x3/uL (4.8-10.8)
[2023-01-19 06:52] LABS: Anion Gap 10 mmol/L (10-20); BUN (Urea Nitrogen) 14 mg/dL (8.4-25.7); Calc. Creatinine Clearance 117 mL/min (70-130); Calcium 10.3 mg/dL (7.8-10.44); Carbon Dioxide 20 mmol/L (23-31); Chloride 108 mmol/L (98-107); Estimated GFR 99; Glucose 93 mg/dL (83-110); Potassium 3.3 mmol/L (3.5-5.1); Sodium 135 mmol/L (136-145)
[2023-01-19] MEDS: Spironolactone 25 MG TAB PO SCH (08:09)
[2023-01-19] MEDS: Furosemide 20 MG TAB PO SCH (08:09)
[2023-01-19] MEDS: Carvedilol 3.125 MG TAB PO SCH (08:09)
[2023-01-19] MEDS: Famotidine 20 MG TAB PO SCH ×2 (08:09→20:08)
[2023-01-19] MEDS: Famotidine/PF 20 mg/2ml Vial SLOW IVP SCH ×2 (08:10→20:08)
[2023-01-19 10:55] LABS: Iron 91 ug/dL (65-175); Iron Binding Capacity, Total 220 mcg/dL (261-462)
[2023-01-19 11:13] LABS: Ferritin 682.61 ng/mL (22-322)
[2023-01-19] MEDS: Tamsulosin HCl 0.4 MG CAP PO SCH (20:07)
[2023-01-20] MEDS: cefTRIAXone\\ROCEPHIN 1 GM in Sodium Chloride 0.9% 100 ML IVPB SCH (00:17)
[2023-01-20] MEDS: Acetaminophen 325 MG TAB PO PRN ×2 (00:17→08:15)
[2023-01-20] MEDS: Spironolactone 25 MG TAB PO SCH (08:15)
[2023-01-20] MEDS: Carvedilol 3.125 MG TAB PO SCH (08:16)
[2023-01-20] MEDS: Famotidine/PF 20 mg/2ml Vial SLOW IVP SCH ×2 (08:16→19:30)
[2023-01-20] MEDS: Furosemide 20 MG TAB PO SCH (08:16)
[2023-01-20] MEDS: Famotidine 20 MG TAB PO SCH ×2 (08:16→20:53)
[2023-01-20 10:59] LABS: Hemoglobin 8.9 g/dL (14.0-18.0); Mean Corpuscular HGB CONC 31.9 g/dL (32.0-36.0); Mean Corpuscular Hemoglobin 35.6 pg (27.0-31.0); Mean Corpuscular Volume 111.6 fl (78.0-98.0); Mean Platelet Volume 9.6 fL (7.4-10.4); Platelet Count 157 10x3/uL (130-400); RBC Distribution Width 17.7 % (11.5-14.5); White Blood Cell (WBC) Count 3.1 10x3/uL (4.8-10.8)
[2023-01-20 11:12] LABS: Delete Auto Diff?? YES; Manual Diff?? YES
[2023-01-20 11:30] LABS: ALT (SGPT) 10 U/L (8-55); AST (SGOT) 13 U/L (5-34); Alkaline Phosphatase 112 U/L (40-110); BUN (Urea Nitrogen) 14 mg/dL (8.4-25.7); Bilirubin, Total 0.4 mg/dL (0.2-1.2); Calc. Creatinine Clearance 113 mL/min (70-130); Calcium 10.6 mg/dL (7.8-10.44); Carbon Dioxide 22 mmol/L (23-31); Chloride 111 mmol/L (98-107); Estimated GFR 98; Globulin 2.3 g/dL (2.4-3.5); Glucose 140 mg/dL (83-110); Potassium 3.4 mmol/L (3.5-5.1); Protein, Total 5.3 g/dL (5.8-8.1); Sodium 130 mmol/L (136-145)
[2023-01-20] MEDS ORDERED: Polyethylene Glycol 3350 17 GM Packet PO SCH (11:45)
[2023-01-20] MEDS ORDERED: Potassium Bicarbonate/Cit Ac 20 MEQ TAB PO SCH (12:30)
[2023-01-20 12:31] LABS: Band 6 % (5-11); Burr Cells SLIGHT = 2-5 cells HPF (0-1); CellaVision Operator ID LAB.GE; Eosinophils 3 % (0-10); Large Platelets 8.8 % (0-5); Lymphocytes 30 % (21-51); Macrocytosis SLIGHT = 6-15 cells HPF (0-5); Metamyelocyte 1 % (0-0); Monocytes 11 % (0-10); Neutrophil 46 % (42-75); Nucleated RBC (Manual Ct) 1 % (0); Ovalocytes SLIGHT = 2-5 cells HPF (0-1); Platelet Adequacy Comment Platelets Normal; Polychromasia MODERATE = 3-4 cells HPF (0-2); Total Cell Count 102
[2023-01-20] MEDS: Tamsulosin HCl 0.4 MG CAP PO SCH (20:53)
[2023-01-21] MEDS: cefTRIAXone\\ROCEPHIN 1 GM in Sodium Chloride 0.9% 100 ML IVPB SCH ×2 (00:23→23:58)
[2023-01-21 08:20] LABS: #Eosinphils 0.2 thou/uL (0.0-0.7); #Monocytes 0.7 thou/uL (0.11-0.59); #Neutrophils 1.5 thou/uL (1.40-6.50); %Eosinophils 4.7 % (0.0-10.0); %Lymphocytes 36.4 % (21.0-51.0); %Monocytes 18.9 % (0.0-10.0); Hemoglobin 9.3 g/dL (14.0-18.0); Mean Corpuscular HGB CONC 32.9 g/dL (32.0-36.0); Mean Corpuscular Hemoglobin 35.8 pg (27.0-31.0); Mean Corpuscular Volume 108.8 fl (78.0-98.0); Mean Platelet Volume 9.9 fL (7.4-10.4); Platelet Count 177 10x3/uL (130-400); RBC Distribution Width 17.7 % (11.5-14.5); White Blood Cell (WBC) Count 3.9 10x3/uL (4.8-10.8)
[2023-01-21] MEDS: Polyethylene Glycol 3350 17 GM Packet PO SCH (08:22)
[2023-01-21] MEDS: Carvedilol 3.125 MG TAB PO SCH (08:23)
[2023-01-21] MEDS: Famotidine 20 MG TAB PO SCH ×2 (08:23→20:31)
[2023-01-21] MEDS: Famotidine/PF 20 mg/2ml Vial SLOW IVP SCH ×2 (08:23→20:07)
[2023-01-21] MEDS: Furosemide 20 MG TAB PO SCH (08:23)
[2023-01-21] MEDS: Spironolactone 25 MG TAB PO SCH (08:23)
[2023-01-21 08:47] LABS: Anion Gap 14 mmol/L (10-20); BUN (Urea Nitrogen) 14 mg/dL (8.4-25.7); Calc. Creatinine Clearance 132 mL/min (70-130); Calcium 11.8 mg/dL (7.8-10.44); Carbon Dioxide 22 mmol/L (23-31); Chloride 104 mmol/L (98-107); Estimated GFR 103; Glucose 106 mg/dL (83-110); Potassium 3.9 mmol/L (3.5-5.1); Sodium 136 mmol/L (136-145)
[2023-01-21] MEDS ORDERED: Bisacodyl 10 MG SUPP PR ONE (12:00)
[2023-01-21] MEDS: Tamsulosin HCl 0.4 MG CAP PO SCH (20:31)
[2023-01-22] MEDS: Acetaminophen 325 MG TAB PO PRN ×2 (05:16→13:27)
[2023-01-22 07:14] LABS: Hemoglobin 9.5 g/dL (14.0-18.0); Manual Diff?? YES; Mean Corpuscular HGB CONC 32.5 g/dL (32.0-36.0); Mean Corpuscular Hemoglobin 35.6 pg (27.0-31.0); Mean Corpuscular Volume 109.4 fl (78.0-98.0); Platelet Count 181 10x3/uL (130-400); RBC Distribution Width 17.4 % (11.5-14.5); Red Blood Cell (RBC) Count 2.67 mill/uL (4.70-6.10); White Blood Cell (WBC) Count 3.8 10x3/uL (4.8-10.8)
[2023-01-22 07:23] LABS: Delete Auto Diff?? YES
[2023-01-22 07:44] LABS: Anion Gap 12 mmol/L (10-20); BUN (Urea Nitrogen) 19 mg/dL (8.4-25.7); Calc. Creatinine Clearance 121 mL/min (70-130); Calcium 12.5 mg/dL (7.8-10.44); Carbon Dioxide 22 mmol/L (23-31); Chloride 104 mmol/L (98-107); Estimated GFR 100; Glucose 105 mg/dL (83-110); Potassium 3.9 mmol/L (3.5-5.1); Sodium 134 mmol/L (136-145)
[2023-01-22] MEDS: Spironolactone 25 MG TAB PO SCH (07:59)
[2023-01-22] MEDS: Furosemide 20 MG TAB PO SCH (07:59)
[2023-01-22] MEDS: Famotidine/PF 20 mg/2ml Vial SLOW IVP SCH (07:59)
[2023-01-22] MEDS: Polyethylene Glycol 3350 17 GM Packet PO SCH (07:59)
[2023-01-22] MEDS: Carvedilol 3.125 MG TAB PO SCH (07:59)
[2023-01-22] MEDS: Famotidine 20 MG TAB PO SCH (07:59)
[2023-01-22 08:36] LABS: Anisocytosis SLIGHT = 6-15 cells HPF (0-5); Band 2 % (5-11); CellaVision Operator ID LAB.GE; Eosinophils 3 % (0-10); Large Platelets 3.9 % (0-5); Lymphocytes 30 % (21-51); Macrocytosis MODERATE=16-30 cells HPF (0-5); Monocytes 20 % (0-10); Neutrophil 39 % (42-75); Ovalocytes SLIGHT = 2-5 cells HPF (0-1); Platelet Adequacy Comment Platelets Normal; Polychromasia SLIGHT = 2-3 cells HPF (0-2); Reactive Lymphocytes 4 % (0-10); Total Cell Count 102
[2023-01-22 14:51] VITALS: BP 94/59; TEMP 97.4
== END 2023-01-22 15:04 | DRG 689 ==
LOC: ERS 22:16 → SURG A 01-18 03:03 → T4-A 01-18 06:30 → OBSVTOIN 01-19 13:03
PROVIDERS: ADMIT Student in an Organized Health Care Education/Training Program; ATTEND Internal Medicine
PROC: 4A043R1 Measurement of Venous Saturation, Peripheral, Percutaneous Approach (ICD-10-PCS; principal; 2023-01-17)
PROC: 3E03329 Introduction of Other Anti-infective into Peripheral Vein, Percutaneous Approach (ICD-10-PCS; 2023-01-18)
DX: N39.0 Urinary tract infection, site not specified (principal); G93.41 Metabolic encephalopathy; I11.0 Hypertensive heart disease with heart failure; E78.5 Hyperlipidemia, unspecified; I50.9 Heart failure, unspecified; S99.921A Unspecified injury of right foot, initial encounter; I48.91 Unspecified atrial fibrillation; Z66 Do not resuscitate; B95.61 Methicillin susceptible Staphylococcus aureus infection as the cause of diseases classified elsewhere; E87.6 Hypokalemia; K59.00 Constipation, unspecified; N40.0 Benign prostatic hyperplasia without lower urinary tract symptoms; Z79.899 Other long term (current) drug therapy; Z95.818 Presence of other cardiac implants and grafts; Z79.82 Long term (current) use of aspirin
CPT/HCPCS: 36415; 36416; 51701; 70450; 71045; 80048; 80053; 80306; 80307; 81001; 82306; 82550; 82553; 82607; 82728; 82805; 83090; 83540; 83550; 83605; 83690; 83735; 83880; 83970; 84443; 84484; 85025; 85610; 85730; 87040; 87077; 87086; 87186; 93005; 96361; 96365; 97139; J0696; J3490